=== PATIENT | female | born 1960 | race American Indian/Alaskan Native ===

== ENCOUNTER 2016-10-21 13:55 | Emergency (ER) | payer MEDICAID ==
[2016-10-21 14:39] VITALS: BP 145/97
[2016-10-21] MEDS ORDERED: TYLENOL PO ONE (19:21)
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
[2016-10-21] MEDS ORDERED: DELTASONE PO ONE (19:28)
[2016-10-21] MEDS ORDERED: FLEXERIL PO ONE (19:28)
== END 2016-10-21 20:10 | disposition home or self-care (01) ==
LOC: ED 13:55
DX: J01.90 Acute sinusitis, unspecified (principal); R05 Cough; M62.831 Muscle spasm of calf; M62.838 Other muscle spasm; I10 Essential (primary) hypertension; M19.90 Unspecified osteoarthritis, unspecified site; F17.200 Nicotine dependence, unspecified, uncomplicated; Z96.651 Presence of right artificial knee joint
CPT/HCPCS: 99282; J7512

== ENCOUNTER 2017-01-28 08:59 | Emergency (ER) | payer MEDICAID ==
[2017-01-28 09:19] VITALS: BP 156/89
[2017-01-28 09:35] LABS: Basophils % (Auto) 0.7 % (0.0-1.8); Eosinophils % (Auto) 3.5 % (0.0-4.3); Hematocrit 40.8 % (30.3-42.9); Hemoglobin 12.9 gm/dl (10.1-14.3); Mean Corpuscular HGB Conc 32 % (30-34); Mean Corpuscular Hemoglobin 27 pg (28-32); Mean Corpuscular Volume 86 fl (79-97); Platelet Count 256 K/mm3 (140-440); Red Blood Count 4.73 M/mm3 (3.65-5.03); Red Cell Distribution Width 16.2 % (13.2-15.2); White Blood Count 6.7 K/mm3 (4.5-11.0)
[2017-01-28 09:57] LABS: Anion Gap 19 mmol/L; BUN/Creatinine Ratio 7.77; Blood Urea Nitrogen 7 mg/dL (7-17); Calcium 8.9 mg/dL (8.4-10.2); Carbon Dioxide 22 mmol/L (22-30); Chloride 106.7 mmol/L (98-107); Glucose 156 mg/dL (65-100); Potassium 4.1 mmol/L (3.6-5.0); Sodium 144 mmol/L (137-145)
--- NOTE | 2017-01-28 10:47 | XRay Report ---
CHEST 2 VIEWS INDICATION: Shortness of breath. COMPARISON: 08/03/2016 FINDINGS: PA and lateral chest radiographs again demonstrate cardiomegaly. Slight increased bronchovascular markings centrally and toward the bases. Minimal bibasilar scarring as well. No large pleural effusions or overt CHF. Intact bones. CONCLUSION: Cardiomegaly again noted with subtle/early pulmonary vascular congestion not excluded, as described. Please correlate. Thank you for the opportunity to participate in this patient's care.
== END 2017-01-28 11:00 | disposition left against medical advice (07) ==
LOC: ED 08:59
DX: J45.909 Unspecified asthma, uncomplicated (principal); Z53.21 Procedure and treatment not carried out due to patient leaving prior to being seen by health care provider
CPT/HCPCS: 36415; 71020; 80048; 84484; 85025; 93005; 93010

== ENCOUNTER 2017-04-30 08:15 | Emergency (ER) | payer MEDICAID ==
[2017-04-30] MEDS ORDERED: NORCO 5/325 PO ONE (12:24)
[2017-04-30] MEDS ORDERED: BOOSTRIX IM ONE (12:24)
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
--- NOTE | 2017-04-30 14:11 | XRay Report ---
RIGHT HIP RADIOGRAPHS INDICATION: Pain, status post fall. Hip replacement at [place] in January 2017. COMPARISON: 05/08/2011. FINDINGS: AP pelvic radiograph with frog-leg view of the right hip demonstrate normal right hip arthroplasty appearance. Intact remainder pelvic articulation, including left hip and SI joints. Mild lower lumbar degenerative changes. Nonobstructive bowel gas pattern. Osteopenia not excluded. CONCLUSION: No acute radiographic abnormality with replaced right hip and few other incidental findings, as above. Thank you for the opportunity to participate in this patient's care.
[2017-04-30 14:25] VITALS: BP 103/64
== END 2017-04-30 14:45 | disposition home or self-care (01) ==
LOC: ED 08:15
DX: S61.012A Laceration without foreign body of left thumb without damage to nail, initial encounter (principal); M25.551 Pain in right hip; I10 Essential (primary) hypertension; M19.90 Unspecified osteoarthritis, unspecified site; Z79.82 Long term (current) use of aspirin; W18.30XA Fall on same level, unspecified, initial encounter; Y93.89 Activity, other specified; Y92.89 Other specified places as the place of occurrence of the external cause; Y99.8 Other external cause status
CPT/HCPCS: 90471; 90715; 99283

== ENCOUNTER 2017-06-23 12:59 | Emergency (ER) | payer MEDICAID ==
[2017-06-23 13:16] VITALS: BP 108/61
[2017-06-23] MEDS ORDERED: MOTRIN PO ONE (15:20)
--- NOTE | 2017-06-23 15:59 | XRay Report ---
Right hip 3 views. History: Pain after in the day. Findings: A right hip prosthesis is demonstrated in satisfactory position. There is no evidence of fracture or other acute findings. Bony mineralization is normal. The left hip appears normal. Impression: No acute findings.
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
== END 2017-06-23 17:42 | disposition home or self-care (01) ==
LOC: ED 12:59
DX: S39.012A Strain of muscle, fascia and tendon of lower back, initial encounter (principal); M48.36 Traumatic spondylopathy, lumbar region; V49.59XA Passenger injured in collision with other motor vehicles in traffic accident, initial encounter; Y93.89 Activity, other specified; Y92.89 Other specified places as the place of occurrence of the external cause; Y99.8 Other external cause status
CPT/HCPCS: 72100

== ENCOUNTER 2017-08-26 13:09 | Emergency (ER) | payer MEDICAID ==
[2017-08-26 13:39] VITALS: BP 168/95
[2017-08-26] MEDS ORDERED: ASPIRIN PO ONE (13:40)
[2017-08-26 14:19] LABS: Basophils % (Auto) 0.5 % (0.0-1.8); Eosinophils # (Auto) 0.2 K/mm3 (0.0-0.4); Eosinophils % (Auto) 2.7 % (0.0-4.3); Hematocrit 39.8 % (30.3-42.9); Hemoglobin 12.9 gm/dl (10.1-14.3); Lymphocytes # (Auto) 1.5 K/mm3 (1.2-5.4); Lymphocytes % (Auto) 24.6 % (13.4-35.0); Mean Corpuscular HGB Conc 32 % (30-34); Mean Corpuscular Hemoglobin 27 pg (28-32); Mean Corpuscular Volume 85 fl (79-97); Monocytes # (Auto) 0.5 K/mm3 (0.0-0.8); Monocytes % (Auto) 8.8 % (0.0-7.3); Platelet Count 249 K/mm3 (140-440); Red Cell Distribution Width 16.5 % (13.2-15.2)
[2017-08-26 14:29] LABS: BUN/Creatinine Ratio 21; Blood Urea Nitrogen 17 mg/dL (7-17); Calcium 9.1 mg/dL (8.4-10.2); Hemolysis Index 8
--- NOTE | 2017-08-26 15:03 | XRay Report ---
AP CHEST: HISTORY: Chest pain, shortness of breath Mild cardiomegaly is suspected. Normal pulmonary vascularity. The lungs are clear. Normal heart and mediastinal structures normal bony thorax. IMPRESSION: Mild cardiomegaly.
[2017-08-26] MEDS ORDERED: PROVENTIL IH ONE ×2 (19:42→19:44)
== END 2017-08-27 14:36 | disposition left against medical advice (07) ==
LOC: ED 13:09
DX: J02.9 Acute pharyngitis, unspecified (principal); Z53.21 Procedure and treatment not carried out due to patient leaving prior to being seen by health care provider
CPT/HCPCS: 36415; 71045; 80048; 84484; 85025; 93005; 93010; 94640

== ENCOUNTER 2017-10-29 06:33 | Emergency (ER) | payer MEDICAID ==
[2017-10-29] MEDS ORDERED: DUONEB *Not for PRN Use IH ONE ×2 (06:47→06:56)
[2017-10-29] MEDS ORDERED: PROVENTIL IH ONE ×2 (07:41→12:11)
--- NOTE | 2017-10-29 07:44 | Emergency Department Report ---
HPI - General Chief Complaint: Dyspnea/Respdistress Time Seen by Provider: 10/29/17 07:37 - HPI HPI: 57-year-old female presents to the emergency department by EMS from home with a complaint of shortness of breath starting this morning. Patient has a history of asthma, hypertension, osteoarthritis and borderline diabetes. She has a Symbicort inhaler at home that she was using without much relief but does not have any albuterol inhaler or nebulizer treatments. She has a primary care doctor but cannot currently remember their name. No recent travel or sick contacts at home. She denies any chest pain but does say it feels tight secondary to her breathing. She denies any back pain, fever, nausea , vomiting or diaphoresis. She is a tobacco smoker. ED Past Medical Hx - Past Medical History Previous Medical History?: Yes Hx Hypertension: Yes Hx Arthritis: Yes (OSTEOARTHRITIS) Hx Asthma: Yes Additional medical history: ALLERGIES - Surgical History Past Surgical History?: Yes Additional Surgical History: right hip replacement, right femur fx, Right knee surgery - Social History Smoking Status: Current Every Day Smoker - Medications Home Medications: Home Medications Medication Instructions Recorded Confirmed Last Taken Type Hydrochlorothiazide [Hctz] 25 mg PO QDAY 04/27/13 06/29/15 Unknown History Esomeprazole Magnesium [NexIUM] 20 mg PO QDAY 06/29/15 06/29/15 Unknown History Aspirin [Aspirin BABY CHEW TAB] 81 mg PO QDAY #30 tab.chew 08/04/16 Unknown Rx Losartan/Hydrochlorothiazide 1 each PO DAILY #30 tablet 08/04/16 Unknown Rx [Hyzaar 50-12.5 TAB] Fluticasone [Flonase] 1 spray NS QDAY #1 bottle 10/21/16 Unknown Rx Loratadine [Claritin] 10 mg PO DAILY #14 tablet 10/21/16 Unknown Rx Ibuprofen [Motrin] 600 mg PO Q8H PRN #15 tablet 04/30/17 Unknown Rx methOCARBAMOL [Robaxin TAB] 500 mg PO Q6H PRN #15 tablet 04/30/17 Unknown Rx traMADol [Ultram] 50 mg PO Q6HR PRN #12 tablet 04/30/17 Unknown Rx Cyclobenzaprine [Flexeril] 10 mg PO BID PRN #10 tablet 06/23/17 Unknown Rx Ibuprofen [Motrin] 600 mg PO Q8H PRN #30 tablet 06/23/17 Unknown Rx Albuterol Sulfate [Ventolin HFA] 2 puff IH Q4H PRN #1 hfa.aer.ad 10/29/17 Unknown Rx Budesonide/Formoterol Fumarate 2 puff IH BID #1 hfa.aer.ad 10/29/17 Unknown Rx [Symbicort 160-4.5 Mcg Inhaler] guaiFENesin/CODEINE [Robitussin AC] 5 ml PO Q6H PRN #100 ml 10/29/17 Unknown Rx predniSONE [Deltasone] 20 mg PO QDAY #2 tab 10/29/17 Unknown Rx ED Review of Systems ROS: Stated complaint: SHORTNESS OF BREATH Other details as noted in HPI Comment: All other systems reviewed and negative Constitutional: denies: chills, fever Eyes: denies: eye pain, eye discharge, vision change ENT: denies: ear pain, throat pain Respiratory: cough, shortness of breath, wheezing Cardiovascular: denies: palpitations, edema Gastrointestinal: denies: abdominal pain, nausea, diarrhea Genitourinary: denies: urgency, dysuria, discharge Musculoskeletal: denies: back pain, joint swelling, arthralgia Skin: denies: rash, lesions Neurological: denies: headache, weakness, paresthesias Physical Exam - Physical Exam Vital Signs: Vital Signs 10/29/17 06:44 Temperature 97.6 F Pulse Rate 89 Respiratory 20 Rate Blood Pressure 125/77 O2 Sat by Pulse 95 Oximetry Physical Exam: GENERAL: The patient is well-developed well-nourished. HENT: Normocephalic. Atraumatic. Patient has moist mucous membranes. EYES: Extraocular motions are intact. Pupils equal reactive to light bilaterally. NECK: Supple. Trachea is midline. CHEST/LUNGS: There is some mild wheezing throughout the chest. Tachypnea but no accessory muscle use. Dry cough heard during examination. There is no respiratory distress noted. HEART/CARDIOVASCULAR: Regular. There is no tachycardia. There is no murmur. ABDOMEN: Abdomen is soft, nontender. Patient has normal bowel sounds. There is no abdominal distention. SKIN: Skin is warm and dry. No appreciable edema. NEURO: The patient is awake, alert, and oriented. The patient is cooperative. The patient has no focal neurologic deficits. The patient has normal speech and gait. MUSCULOSKELETAL: There is no tenderness or deformity. There is no limitation range of motion. There is no evidence of acute injury. ED Course Vital Signs 10/29/17 06:44 Temperature 97.6 F Pulse Rate 89 Respiratory 20 Rate Blood Pressure 125/77 O2 Sat by Pulse 95 Oximetry ED Medical Decision Making - Lab Data Result diagrams: 10/29/17 08:02 10/29/17 08:02 - EKG Data -: EKG Interpreted by Me EKG shows normal: sinus rhythm, axis, intervals, QRS complexes (LVH, Q waves to the anterior leads), ST-T waves (T-wave inversions to the lateral and inferior leads) Rate: normal - EKG Data When compared to previous EKG there are: no significant change Interpretation: unchanged when compared t (08/26/17) - Radiology Data Radiology results: report reviewed, image reviewed interpreted by me: Chest x-ray does not show any acute process. There are no pleural effusions, obvious pneumonia and there is no pneumothorax. EXAM: CT ANGIO CHEST HISTORY: SOB, elevated dimer TECHNIQUE: CT angiography of the chest was performed. PRIORS: None. FINDINGS: There is moderate cardiomegaly. There is no significant mediastinal or hilar mass seen. No convincing pulmonary embolus seen. There is an artery in the right upper lobe which demonstrates less contrast density as compared to other arteries. This is probably artifact and may relate to streak artifact from dense contrast in the SVC. There is nonspecific interstitial thickening in the lower lungs. This could be chronic or represent some interstitial edema. There is some dependent atelectasis at the lung bases. There is no pneumothorax seen. There is mild emphysema. IMPRESSION: There is no pulmonary embolism or aortic dissection seen. Cardiomegaly. Interstitial prominence could be chronic disease versus interstitial edema. Mild emphysema Transcribed By: FREDY Dictated By: RODRI SEPULVEDA MD Electronically Authenticated By: RODRI SEPULVEDA MD Signed Date/Time: 10/29/17 1123 - Medical Decision Making Patient presented with some shortness of breath and bronchospasm that has been going on since this morning. No chest pain but she felt like there was some tightness with breathing. Labs have been mostly unremarkable including negative troponins 2, no leukocytosis and no electrolyte abnormalities. BNP was 14. EKG did not show any signs of ST elevation [place]. Chest x-ray does not show any acute process. Patient did have a slightly elevated equivocal d-dimer and therefore a CT angiography of the chest was done that did not show any signs of pulmonary embolism, dissection or any other acute process. She was given some breathing treatments and a dose of steroids and upon reevaluation she is feeling much better. Vital signs are stable including being afebrile and no hypoxia. She does not show any signs of respiratory distress. Patient will be discharged home with a refill of her Symbicort, and albuterol inhaler, an antitussive in 2 days of steroids. The patient understands that the steroids can increase her blood sugar and she should make sure she takes her oral hypoglycemics. She will follow-up with her primary care physician and will return to the ER with any worsening of her symptoms or any acute distress. - Differential Diagnosis CHF, Asthma, PE, Pnuemonia, Bronchitis Critical Care Time: No Critical care attestation.: If time is entered above; I have spent that time in minutes in the direct care of this critically ill patient, excluding procedure time. ED Disposition Clinical Impression: Bronchitis, Bronchospasm Disposition: DC-01 TO HOME OR SELFCARE Is pt being admited?: No Condition: Stable Instructions: Chronic Bronchitis (ED) Additional Instructions: Please follow-up with your primary care doctor in the next few days. I believe your symptoms are mostly due to bronchitis and asthma but I did give you a referral for a local product sales engineer to follow up since you originally had a complaint of some chest tightness. Return to the emergency Department with any worsening of your symptoms or any acute distress. You have been prescribed a medication that is sedating and therefore should not be taken prior to driving, working, and responsible for children and in no way should be mixed with alcohol of any quantity. Prescriptions: Albuterol Sulfate [Ventolin HFA] 2 puff IH Q4H PRN #1 hfa.aer.ad PRN Reason: Shortness Of Breath Budesonide/Formoterol Fumarate [Symbicort 160-4.5 Mcg Inhaler] 2 puff IH BID #1 hfa.aer.ad guaiFENesin/CODEINE [Robitussin AC] 5 ml PO Q6H PRN #100 ml PRN Reason: Cough predniSONE [Deltasone] 20 mg PO QDAY #2 tab Referrals: PRIMARY CARE, [Primary Care Provider] - 3-5 Days SANDY CAMPBELL MD [Staff Physician] - 3-5 Days Time of Disposition: 12:39
[2017-10-29 08:16] LABS: Basophils % (Auto) 0.5 % (0.0-1.8); Eosinophils # (Auto) 0.1 K/mm3 (0.0-0.4); Eosinophils % (Auto) 1.2 % (0.0-4.3); Hematocrit 37.2 % (30.3-42.9); Hemoglobin 12.1 gm/dl (10.1-14.3); Lymphocytes # (Auto) 1.4 K/mm3 (1.2-5.4); Lymphocytes % (Auto) 19.8 % (13.4-35.0); Mean Corpuscular HGB Conc 33 % (30-34); Mean Corpuscular Hemoglobin 27 pg (28-32); Mean Corpuscular Volume 84 fl (79-97); Monocytes # (Auto) 0.6 K/mm3 (0.0-0.8); Monocytes % (Auto) 8.3 % (0.0-7.3); Platelet Count 240 K/mm3 (140-440); Red Blood Count 4.43 M/mm3 (3.65-5.03); Red Cell Distribution Width 15.8 % (13.2-15.2)
[2017-10-29 08:29] LABS: BUN/Creatinine Ratio 14; Blood Urea Nitrogen 10 mg/dL (7-17); Calcium 8.8 mg/dL (8.4-10.2); Hemolysis Index 10
--- NOTE | 2017-10-29 09:02 | XRay Report ---
PA and lateral chest: SOB. There is enlargement of the heart. Interstitial fluid lines are identified in the lung bases bilaterally. There is minimal blunting of both costophrenic angles. The lungs otherwise appear generally clear. No hilar or mediastinal adenopathy appreciated. Compared to prior examination of August 26, 2017 the interstitial changes are new. Impression: Cardiomegaly and CHF.
[2017-10-29 09:50] VITALS: BP 134/78
--- NOTE | 2017-10-29 11:28 | Cat Scan Report ---
FINAL REPORT EXAM: CT ANGIO CHEST HISTORY: SOB, elevated dimer TECHNIQUE: CT angiography of the chest was performed. PRIORS: None. FINDINGS: There is moderate cardiomegaly. There is no significant mediastinal or hilar mass seen. No convincing pulmonary embolus seen. There is an artery in the right upper lobe which demonstrates less contrast density as compared to other arteries. This is probably artifact and may relate to streak artifact from dense contrast in the SVC. There is nonspecific interstitial thickening in the lower lungs. This could be chronic or represent some interstitial edema. There is some dependent atelectasis at the lung bases. There is no pneumothorax seen. There is mild emphysema. IMPRESSION: There is no pulmonary embolism or aortic dissection seen. Cardiomegaly. Interstitial prominence could be chronic disease versus interstitial edema. Mild emphysema
== END 2017-10-29 13:03 | disposition home or self-care (01) ==
LOC: ED 06:33
DX: J40 Bronchitis, not specified as acute or chronic (principal); I10 Essential (primary) hypertension; Z96.641 Presence of right artificial hip joint; F17.200 Nicotine dependence, unspecified, uncomplicated; Z79.82 Long term (current) use of aspirin
CPT/HCPCS: 36415; 71046; 71275; 80048; 83880; 84484; 85025; 85379; 93005; 93010; 94640; 96372; 96374; 99284; G0480; J2930; Q9967; 80320

== ENCOUNTER 2018-01-11 11:51 | Emergency (ER) | payer MEDICAID ==
[2018-01-11 12:36] VITALS: BP 127/64
--- NOTE | 2018-01-11 13:25 | XRay Report ---
CHEST XRAY, 2 VIEWS: History: SOB. Findings: There is mild cardiomegaly. Pulmonary vessels are within normal limits. The lungs are clear and fully expanded. No infiltrate, pleural effusion or pneumothorax. Normal thoracic cage. IMPRESSION: Cardiomegaly.
[2018-01-11 13:47] LABS: Basophils # (Auto) 0.1 K/mm3 (0.0-0.1); Eosinophils # (Auto) 0.1 K/mm3 (0.0-0.4); Eosinophils % (Auto) 1.9 % (0.0-4.3); Hematocrit 40.1 % (30.3-42.9); Hemoglobin 13.2 gm/dl (10.1-14.3); Lymphocytes # (Auto) 1.6 K/mm3 (1.2-5.4); Lymphocytes % (Auto) 23.4 % (13.4-35.0); Mean Corpuscular HGB Conc 33 % (30-34); Mean Corpuscular Hemoglobin 28 pg (28-32); Mean Corpuscular Volume 84 fl (79-97); Monocytes # (Auto) 0.5 K/mm3 (0.0-0.8); Monocytes % (Auto) 6.7 % (0.0-7.3); Platelet Count 216 K/mm3 (140-440); Red Blood Count 4.75 M/mm3 (3.65-5.03); Red Cell Distribution Width 16.9 % (13.2-15.2)
[2018-01-11 14:06] LABS: BUN/Creatinine Ratio 18; Blood Urea Nitrogen 14 mg/dL (7-17); Calcium 8.7 mg/dL (8.4-10.2); Hemolysis Index 4
== END 2018-01-11 20:30 | disposition left against medical advice (07) ==
LOC: ED 11:51
DX: R06.02 Shortness of breath (principal); Z53.21 Procedure and treatment not carried out due to patient leaving prior to being seen by health care provider
CPT/HCPCS: 36415; 71046; 80048; 85025

== ENCOUNTER 2018-01-18 03:24 | Emergency (ER) | payer MEDICAID ==
[2018-01-18] MEDS ORDERED: PROVENTIL IH ONE ×2 (03:42→09:28)
[2018-01-18] MEDS ORDERED: ATROVENT IH ONE (03:42)
--- NOTE | 2018-01-18 06:14 | XRay Report ---
FINAL REPORT EXAM: XR CHEST ROUTINE 2V HISTORY: Shortness of breath TECHNIQUE: PA and lateral views of the chest were submitted. Comparison is made to the study of 12/30/2017. FINDINGS: The heart is moderately enlarged. The lungs are not overtly congested. Pleural fluid is not seen. There are no localized infiltrates. The skeletal structures reveal disc degeneration in the dorsal spine. IMPRESSION: Cardiomegaly. No acute infiltrates or congestion.
[2018-01-18 06:28] LABS: Basophils % (Auto) 0.6 % (0.0-1.8); Eosinophils # (Auto) 0.1 K/mm3 (0.0-0.4); Lymphocytes # (Auto) 1.4 K/mm3 (1.2-5.4); Lymphocytes % (Auto) 21.6 % (13.4-35.0); Mean Corpuscular HGB Conc 33 % (30-34); Mean Corpuscular Hemoglobin 28 pg (28-32); Mean Corpuscular Volume 85 fl (79-97); Monocytes # (Auto) 0.5 K/mm3 (0.0-0.8); Monocytes % (Auto) 8.1 % (0.0-7.3); Platelet Count 198 K/mm3 (140-440); Red Blood Count 4.69 M/mm3 (3.65-5.03); Red Cell Distribution Width 17.1 % (13.2-15.2)
[2018-01-18 06:40] LABS: BUN/Creatinine Ratio 13; Blood Urea Nitrogen 13 mg/dL (7-17); Calcium 9.1 mg/dL (8.4-10.2); Hemolysis Index 2
[2018-01-18 08:48] VITALS: BP 138/92
--- NOTE | 2018-01-18 09:34 | Emergency Department Report ---
Blank Doc - Documentation Documentation: Recent PNA, still coughing. feels she was senty home too soon. Pt states that the Neb treatment made her feel better this morning. pt states she is still having green sputum. CXR wnl. to FT for a second neb treatment. lungs clear but she is having SOB with walking. Pt likely can be dc home with Zpac and 5 days of predispose
--- NOTE | 2018-01-18 10:31 | Emergency Department Report ---
ED General Adult HPI - General Chief complaint: Dyspnea/Respdistress Stated complaint: CAN'T BREATH BODY ACHE Time Seen by Provider: 01/18/18 09:29 Source: patient Mode of arrival: Ambulatory Limitations: No Limitations - History of Present Illness Initial comments: Recent PNA, still coughing. feels she was senty home too soon. Pt states that the Neb treatment made her feel better this morning. pt states she is still having green sputum. CXR wnl. to FT for a second neb treatment. lungs clear but she is having SOB with walking. Pt likely can be dc home with Zpac and 5 days of predispose Onset/Timin -: week(s) Location: head, chest Radiation: non-radiation Severity scale (0 -10): 9 Consistency: intermittent Improves with: none Worsens with: none Associated Symptoms: cough, other (congestion ). denies: fever/chills - Related Data Previous Rx's Medication Instructions Recorded Last Taken Type Albuterol Sulfate [Ventolin HFA] 2 puff IH Q4H PRN #1 hfa.aer.ad 12/19/17 Unknown Rx Budesonide/Formoterol Fumarate 2 puff IH BID #1 hfa.aer.ad 12/19/17 Unknown Rx [Symbicort 160-4.5 Mcg Inhaler] Fluticasone [Flonase] 2 spray NS QDAY #1 bottle 12/19/17 Unknown Rx Glycerin Adult 2 gm 1 supp MS QDAY PRN #30 supp.rect 12/19/17 Unknown Rx Hydrochlorothiazide [HCTZ] 25 mg PO QDAY #30 tablet 12/19/17 Unknown Rx Nitroglycerin [Nitro-Bid] 1 applic TD Q6H PRN #30 g 12/19/17 Unknown Rx Pantoprazole [Protonix TAB] 20 mg PO QDAY #30 tablet.dr 12/19/17 Unknown Rx Polyethylene Glycol 3350 [Miralax 17 gm PO QDAY #30 powd.pack 12/19/17 Unknown Rx 3350] ALBUTEROL Inhaler [ProAir HFA 2 puff IH QID PRN #1 inhalation 01/03/18 Unknown Rx Inhaler] Folic Acid [Folvite] 1 mg PO QDAY #30 tablet 01/03/18 Unknown Rx Nicotine [Habitrol] 14 mg TD QDAY #30 patch 01/03/18 Unknown Rx Prednisone [predniSONE 10 mg 10 mg PO .TAPER #1 tab.ds.pk 01/03/18 Unknown Rx (6-Day Pack, 21 Tabs)] Thiamine [Vitamin B-1] 100 mg PO QDAY #30 tablet 01/03/18 Unknown Rx Carvedilol [Coreg] 3.125 mg PO BID #30 tablet 01/06/18 Unknown Rx Lisinopril [Prinivil] 5 mg PO DAILY #30 tablet 01/06/18 Unknown Rx Azithromycin 250 mg PO DAILY #6 tablet 01/18/18 Unknown Rx Fluticasone [Flonase] 1 spray NS QDAY #1 bottle 01/18/18 Unknown Rx predniSONE [Deltasone] 40 mg PO QDAY #10 tab 01/18/18 Unknown Rx Allergies Allergy/AdvReac Type Severity Reaction Status Date / Time No Known Allergies Allergy Verified 01/28/17 09:15 ED Review of Systems ROS: Stated complaint: CAN'T BREATH BODY ACHE Other details as noted in HPI Constitutional: denies: chills, fever Eyes: denies: eye pain, eye discharge, vision change ENT: denies: ear pain, throat pain Respiratory: cough, shortness of breath, wheezing Cardiovascular: denies: chest pain, palpitations Endocrine: no symptoms reported Gastrointestinal: denies: abdominal pain, nausea, diarrhea Genitourinary: denies: urgency, dysuria, discharge Musculoskeletal: denies: back pain, joint swelling, arthralgia Skin: denies: rash, lesions Neurological: denies: headache, weakness, paresthesias Psychiatric: denies: anxiety, depression Hematological/Lymphatic: denies: easy bleeding, easy bruising ED Past Medical Hx - Past Medical History Previous Medical History?: Yes Hx Hypertension: Yes Hx Arthritis: Yes (OSTEOARTHRITIS) Hx Asthma: Yes Hx COPD: Yes Additional medical history: ALLERGIES - Surgical History Past Surgical History?: Yes Additional Surgical History: right hip replacement, right femur fx, Right knee surgery - Social History Smoking Status: Never Smoker - Medications Home Medications: Home Medications Medication Instructions Recorded Confirmed Last Taken Type Albuterol Sulfate [Ventolin HFA] 2 puff IH Q4H PRN #1 hfa.aer.ad 12/19/17 Unknown Rx Budesonide/Formoterol Fumarate 2 puff IH BID #1 hfa.aer.ad 12/19/17 Unknown Rx [Symbicort 160-4.5 Mcg Inhaler] Fluticasone [Flonase] 2 spray NS QDAY #1 bottle 12/19/17 Unknown Rx Glycerin Adult 2 gm 1 supp MS QDAY PRN #30 supp.rect 12/19/17 Unknown Rx Hydrochlorothiazide [HCTZ] 25 mg PO QDAY #30 tablet 12/19/17 Unknown Rx Nitroglycerin [Nitro-Bid] 1 applic TD Q6H PRN #30 g 12/19/17 Unknown Rx Pantoprazole [Protonix TAB] 20 mg PO QDAY #30 tablet.dr 12/19/17 Unknown Rx Polyethylene Glycol 3350 [Miralax 17 gm PO QDAY #30 powd.pack 12/19/17 Unknown Rx 3350] ALBUTEROL Inhaler [ProAir HFA 2 puff IH QID PRN #1 inhalation 01/03/18 Unknown Rx Inhaler] Folic Acid [Folvite] 1 mg PO QDAY #30 tablet 01/03/18 Unknown Rx Nicotine [Habitrol] 14 mg TD QDAY #30 patch 01/03/18 Unknown Rx Prednisone [predniSONE 10 mg 10 mg PO .TAPER #1 tab.ds.pk 01/03/18 Unknown Rx (6-Day Pack, 21 Tabs)] Thiamine [Vitamin B-1] 100 mg PO QDAY #30 tablet 01/03/18 Unknown Rx Carvedilol [Coreg] 3.125 mg PO BID #30 tablet 01/06/18 Unknown Rx Lisinopril [Prinivil] 5 mg PO DAILY #30 tablet 01/06/18 Unknown Rx Azithromycin 250 mg PO DAILY #6 tablet 01/18/18 Unknown Rx Fluticasone [Flonase] 1 spray NS QDAY #1 bottle 01/18/18 Unknown Rx predniSONE [Deltasone] 40 mg PO QDAY #10 tab 01/18/18 Unknown Rx ED Physical Exam - General Limitations: No Limitations General appearance: alert, in no apparent distress - Head Head exam: Present: atraumatic, normocephalic - Eye Eye exam: Present: normal appearance - ENT ENT exam: Present: mucous membranes moist, TM's normal bilaterally, normal external ear exam - Expanded ENT Exam Expanded Mouth exam: Absent: trismus Throat exam: Positive: tonsillar erythema. Negative: tonsillomegaly, tonsillar exudate, R peritonsillar mass, L peritonsillar mass - Neck Neck exam: Present: normal inspection, full ROM. Absent: tenderness, lymphadenopathy, thyromegaly - Respiratory Respiratory exam: Present: normal lung sounds bilaterally. Absent: respiratory distress, wheezes, stridor, chest wall tenderness - Cardiovascular Cardiovascular Exam: Present: regular rate, normal rhythm, normal heart sounds. Absent: systolic murmur, diastolic murmur, rubs, gallop - GI/Abdominal GI/Abdominal exam: Present: soft, normal bowel sounds. Absent: distended, tenderness, guarding, rebound, rigid, organomegaly, mass, bruit, pulsatile mass , hernia - Rectal Rectal exam: Present: deferred - Extremities Exam Extremities exam: Present: normal inspection - Back Exam Back exam: Present: normal inspection - Neurological Exam Neurological exam: Present: alert, oriented X3 - Psychiatric Psychiatric exam: Present: normal affect, normal mood - Skin Skin exam: Present: warm, dry, intact, normal color. Absent: rash ED Course Vital Signs 01/18/18 01/18/18 01/18/18 03:49 04:12 05:38 Temperature 97.8 F Pulse Rate 87 Pulse Rate [ 84 85 Posterior Bilateral Throughout] Pulse Rate [ Throughout] Respiratory 14 Rate Respiratory 18 18 Rate [Posterior Bilateral Throughout] Respiratory Rate [ Throughout] Blood Pressure 128/90 O2 Sat by Pulse 98 Oximetry 01/18/18 01/18/18 08:46 09:59 Temperature 97.7 F Pulse Rate 85 Pulse Rate [ 86 Posterior Bilateral Throughout] Pulse Rate [ 90 Throughout] Respiratory 20 Rate Respiratory 20 Rate [Posterior Bilateral Throughout] Respiratory 18 Rate [ Throughout] Blood Pressure 138/92 O2 Sat by Pulse 96 Oximetry ED Medical Decision Making - Lab Data Result diagrams: 01/18/18 06:10 01/18/18 06:10 - Medical Decision Making Patient was noticed to distress at this time no wheezing no cough patient and related ED from a room assignment to maintain ED and back to room without increased shortness of breath there's no wheezing no dyspnea at this time plan treat for bronchitis steroid burst Zithromax requested Flonase nasal spray as primary concern is nasal congestion will rx for same patient will be DC'd to home in stable condition at this time patient is currently a/o x 3 without shortness of breath no chest pain dizziness lightheadedness and nausea vomiting Critical care attestation.: If time is entered above; I have spent that time in minutes in the direct care of this critically ill patient, excluding procedure time. ED Disposition Clinical Impression: Bronchitis Disposition: DC-01 TO HOME OR SELFCARE Is pt being admited?: No Does the pt Need Aspirin: No Condition: Good Instructions: Chronic Bronchitis (ED), Acute Bronchitis (ED) Prescriptions: Azithromycin 250 mg PO DAILY #6 tablet Fluticasone [Flonase] 1 spray NS QDAY #1 bottle predniSONE [Deltasone] 40 mg PO QDAY #10 tab Referrals: MELVIN TINAJERO MD [Primary Care Provider] - 3-5 Days Forms: Work/School Release Form(ED) Time of Disposition: 10:34
== END 2018-01-18 10:50 | disposition home or self-care (01) ==
LOC: ED 03:24
DX: J40 Bronchitis, not specified as acute or chronic (principal); I10 Essential (primary) hypertension; M19.90 Unspecified osteoarthritis, unspecified site; J45.909 Unspecified asthma, uncomplicated; Z96.641 Presence of right artificial hip joint
CPT/HCPCS: 36415; 71046; 80048; 85025; 93005; 93010; 94640

== ENCOUNTER 2018-01-26 10:20 | Emergency (ER) | payer MEDICAID ==
[2018-01-26 10:31] VITALS: BP 131/85
--- NOTE | 2018-01-26 12:35 | Emergency Department Report ---
ED Shortness of Breath HPI - General Chief Complaint: Dyspnea/Respdistress Stated Complaint: SOB Time Seen by Provider: 01/26/18 12:22 Source: patient, EMS Mode of arrival: Stretcher Limitations: No Limitations - History of Present Illness Initial Comments: Patient is a 57-year-old [place] female who had a pneumonia last month with some lingering bronchitis who is complaining today of some increased shortness of breath. Patient ran out of her albuterol inhaler and nasal spray yesterday. Patient states she has some sinus congestion chance of breath with exertion. Patient has a fevers chills nausea vomiting this time. Patient denies chest pain. Patient states shortness of breath is worse when she is walking up stairs. Patient doesn't recall spelled productive of clear sputum. - Related Data Previous Rx's Medication Instructions Recorded Last Taken Type Albuterol Sulfate [Ventolin HFA] 2 puff IH Q4H PRN #1 hfa.aer.ad 12/19/17 Unknown Rx Budesonide/Formoterol Fumarate 2 puff IH BID #1 hfa.aer.ad 12/19/17 Unknown Rx [Symbicort 160-4.5 Mcg Inhaler] Fluticasone [Flonase] 2 spray NS QDAY #1 bottle 12/19/17 Unknown Rx Glycerin Adult 2 gm 1 supp MS QDAY PRN #30 supp.rect 12/19/17 Unknown Rx Hydrochlorothiazide [HCTZ] 25 mg PO QDAY #30 tablet 12/19/17 Unknown Rx Nitroglycerin [Nitro-Bid] 1 applic TD Q6H PRN #30 g 12/19/17 Unknown Rx Pantoprazole [Protonix TAB] 20 mg PO QDAY #30 tablet.dr 12/19/17 Unknown Rx Polyethylene Glycol 3350 [Miralax 17 gm PO QDAY #30 powd.pack 12/19/17 Unknown Rx 3350] ALBUTEROL Inhaler [ProAir HFA 2 puff IH QID PRN #1 inhalation 01/03/18 Unknown Rx Inhaler] Folic Acid [Folvite] 1 mg PO QDAY #30 tablet 01/03/18 Unknown Rx Nicotine [Habitrol] 14 mg TD QDAY #30 patch 01/03/18 Unknown Rx Prednisone [predniSONE 10 mg 10 mg PO .TAPER #1 tab.ds.pk 01/03/18 Unknown Rx (6-Day Pack, 21 Tabs)] Thiamine [Vitamin B-1] 100 mg PO QDAY #30 tablet 01/03/18 Unknown Rx Carvedilol [Coreg] 3.125 mg PO BID #30 tablet 01/06/18 Unknown Rx Lisinopril [Prinivil] 5 mg PO DAILY #30 tablet 01/06/18 Unknown Rx Azithromycin 250 mg PO DAILY #6 tablet 01/18/18 Unknown Rx Fluticasone [Flonase] 1 spray NS QDAY #1 bottle 01/18/18 Unknown Rx predniSONE [Deltasone] 40 mg PO QDAY #10 tab 01/18/18 Unknown Rx ALBUTEROL Inhaler [ProAir HFA 2 puff IH QID PRN #1 inhalation 01/26/18 Unknown Rx Inhaler] ALBUTEROL NEB's [Proventil 0.083% 2.5 mg IH TID PRN #75 ml 01/26/18 Unknown Rx NEBS] Amoxicillin/Potassium Clav 1 each PO BID #14 tablet 01/26/18 Unknown Rx [Augmentin 875-125 Tablet] Allergies Allergy/AdvReac Type Severity Reaction Status Date / Time No Known Allergies Allergy Verified 01/26/18 10:31 ED Review of Systems ROS: Stated complaint: SOB Other details as noted in HPI Comment: All other systems reviewed and negative ED Past Medical Hx - Past Medical History Hx Hypertension: Yes Hx Arthritis: Yes (OSTEOARTHRITIS) Hx Asthma: Yes Hx COPD: Yes (bronchitis) Additional medical history: ALLERGIES - Surgical History Additional Surgical History: right hip replacement, right femur fx, Right knee surgery - Social History Smoking Status: Current Some Day Smoker Substance Use Type: None - Medications Home Medications: Home Medications Medication Instructions Recorded Confirmed Last Taken Type Albuterol Sulfate [Ventolin HFA] 2 puff IH Q4H PRN #1 hfa.aer.ad 12/19/17 Unknown Rx Budesonide/Formoterol Fumarate 2 puff IH BID #1 hfa.aer.ad 12/19/17 Unknown Rx [Symbicort 160-4.5 Mcg Inhaler] Fluticasone [Flonase] 2 spray NS QDAY #1 bottle 12/19/17 Unknown Rx Glycerin Adult 2 gm 1 supp MS QDAY PRN #30 supp.rect 12/19/17 Unknown Rx Hydrochlorothiazide [HCTZ] 25 mg PO QDAY #30 tablet 12/19/17 Unknown Rx Nitroglycerin [Nitro-Bid] 1 applic TD Q6H PRN #30 g 12/19/17 Unknown Rx Pantoprazole [Protonix TAB] 20 mg PO QDAY #30 tablet.dr 12/19/17 Unknown Rx Polyethylene Glycol 3350 [Miralax 17 gm PO QDAY #30 powd.pack 12/19/17 Unknown Rx 3350] ALBUTEROL Inhaler [ProAir HFA 2 puff IH QID PRN #1 inhalation 01/03/18 Unknown Rx Inhaler] Folic Acid [Folvite] 1 mg PO QDAY #30 tablet 01/03/18 Unknown Rx Nicotine [Habitrol] 14 mg TD QDAY #30 patch 01/03/18 Unknown Rx Prednisone [predniSONE 10 mg 10 mg PO .TAPER #1 tab.ds.pk 01/03/18 Unknown Rx (6-Day Pack, 21 Tabs)] Thiamine [Vitamin B-1] 100 mg PO QDAY #30 tablet 01/03/18 Unknown Rx Carvedilol [Coreg] 3.125 mg PO BID #30 tablet 01/06/18 Unknown Rx Lisinopril [Prinivil] 5 mg PO DAILY #30 tablet 01/06/18 Unknown Rx Azithromycin 250 mg PO DAILY #6 tablet 01/18/18 Unknown Rx Fluticasone [Flonase] 1 spray NS QDAY #1 bottle 01/18/18 Unknown Rx predniSONE [Deltasone] 40 mg PO QDAY #10 tab 01/18/18 Unknown Rx ALBUTEROL Inhaler [ProAir HFA 2 puff IH QID PRN #1 inhalation 01/26/18 Unknown Rx Inhaler] ALBUTEROL NEB's [Proventil 0.083% 2.5 mg IH TID PRN #75 ml 01/26/18 Unknown Rx NEBS] Amoxicillin/Potassium Clav 1 each PO BID #14 tablet 01/26/18 Unknown Rx [Augmentin 875-125 Tablet] ED Physical Exam - General Limitations: No Limitations General appearance: alert, in no apparent distress - Head Head exam: Present: atraumatic, normocephalic - Eye Eye exam: Present: normal appearance - ENT ENT exam: Present: mucous membranes moist, other (generalized sinus tenderness) - Neck Neck exam: Present: normal inspection - Respiratory Respiratory exam: Present: normal lung sounds bilaterally, other (patient is able to talk in full sentences). Absent: respiratory distress, wheezes, rales, rhonchi, stridor - Cardiovascular Cardiovascular Exam: Present: regular rate, normal rhythm. Absent: systolic murmur, diastolic murmur, rubs, gallop - GI/Abdominal GI/Abdominal exam: Present: soft, normal bowel sounds - Extremities Exam Extremities exam: Present: normal inspection - Back Exam Back exam: Present: normal inspection - Neurological Exam Neurological exam: Present: alert, oriented X3 - Psychiatric Psychiatric exam: Present: normal affect, normal mood - Skin Skin exam: Present: warm, dry, intact, normal color. Absent: rash ED Course Vital Signs 01/26/18 10:24 Temperature 97.5 F L Pulse Rate 94 H Respiratory 20 Rate Blood Pressure 131/85 O2 Sat by Pulse 96 Oximetry ED Medical Decision Making - Medical Decision Making Patient's lungs are clear at this time. Patient is still on prednisone. Patient will be given a refill on her albuterol inhaler but also a prescription for the nebulizer machine with meds that she can take at home. Patient because of the sinus congestion and tenderness be started on Augmentin. Patient be discharged home. Patient will have follow-up with pulmonology. Critical care attestation.: If time is entered above; I have spent that time in minutes in the direct care of this critically ill patient, excluding procedure time. ED Disposition Clinical Impression: Bronchitis, Shortness of breath Sinusitis Qualifiers: Sinusitis location: pansinusitis Chronicity: subacute Qualified Code(s): J01.40 - Acute pansinusitis, unspecified Disposition: TO HOME OR SELFCARE Is pt being admited?: No Does the pt Need Aspirin: No Condition: Stable Instructions: Chronic Bronchitis (ED), Sinusitis (ED) Prescriptions: ALBUTEROL Inhaler [ProAir HFA Inhaler] 2 puff IH QID PRN #1 inhalation PRN Reason: Shortness Of Breath ALBUTEROL NEB's [Proventil 0.083% NEBS] 2.5 mg IH TID PRN #75 ml PRN Reason: Wheezing Amoxicillin/Potassium Clav [Augmentin 875-125 Tablet] 1 each PO BID #14 tablet Referrals: MINDA CHIANG MD [Staff Physician] - 3-5 Days
== END 2018-01-26 12:48 | disposition home or self-care (01) ==
LOC: ED 10:20
DX: J01.40 Acute pansinusitis, unspecified (principal); J40 Bronchitis, not specified as acute or chronic; R06.02 Shortness of breath; I10 Essential (primary) hypertension; J45.909 Unspecified asthma, uncomplicated; Z72.0 Tobacco use
CPT/HCPCS: 99283

== ENCOUNTER 2018-02-05 08:49 | Inpatient (IN) | payer MEDICAID ==
[2018-02-05] MEDS ORDERED: DUONEB *Not for PRN Use IH ONE (09:26)
[2018-02-05 10:05] LABS: Basophils # (Auto) 0.1 K/mm3 (0.0-0.1); Basophils % (Auto) 0.8 % (0.0-1.8); Eosinophils % (Auto) 0.3 % (0.0-4.3); Hematocrit 40.8 % (30.3-42.9); Hemoglobin 12.9 gm/dl (10.1-14.3); Lymphocytes # (Auto) 1.5 K/mm3 (1.2-5.4); Lymphocytes % (Auto) 20.1 % (13.4-35.0); Mean Corpuscular HGB Conc 32 % (30-34); Mean Corpuscular Hemoglobin 27 pg (28-32); Mean Corpuscular Volume 85 fl (79-97); Monocytes # (Auto) 0.7 K/mm3 (0.0-0.8); Monocytes % (Auto) 9.5 % (0.0-7.3); Platelet Count 269 K/mm3 (140-440); Red Cell Distribution Width 17.3 % (13.2-15.2)
[2018-02-05 10:15] LABS: BUN/Creatinine Ratio 11; Blood Urea Nitrogen 10 mg/dL (7-17); Calcium 9.2 mg/dL (8.4-10.2); Hemolysis Index 3
[2018-02-05] MEDS ORDERED: LASIX IV ONE (10:27)
--- NOTE | 2018-02-05 10:30 | Emergency Department Report ---
ED Shortness of Breath HPI - General Chief Complaint: Upper Respiratory Infection Stated Complaint: SOB,ABD PAIN Time Seen by Provider: 02/05/18 09:25 Source: patient Mode of arrival: Ambulatory Limitations: No Limitations - History of Present Illness Initial Comments: 57-year-old female past medical history smoker, asthma/COPD, arthritis, hypertension p/w c/o persistent worsening shortness of breath. Patient is awake alert and oriented 3. States she feels short of breath at rest. States that she has light minor dull chest discomfort which is intermittent. States that her primary complaint is shortness of breath. States she has noticed very mild lower extremity swelling over the last 2 weeks. Patient was recently admitted and treated for COPD exacerbation. Denies any fevers or chills currently. States she quit smoking about 3 weeks ago. Speaking in full sentences. Complains of persistent mildly productive cough with whitish sputum. MD Complaint: shortness of breath Onset/Timin -: week(s) Severity: moderate, severe Improves With: rest Known History Of: COPD, asthma, congestive heart failure Associated Symptoms: cough - Related Data Previous Rx's Medication Instructions Recorded Last Taken Type Albuterol Sulfate [Ventolin HFA] 2 puff IH Q4H PRN #1 hfa.aer.ad 12/19/17 Unknown Rx Budesonide/Formoterol Fumarate 2 puff IH BID #1 hfa.aer.ad 12/19/17 Unknown Rx [Symbicort 160-4.5 Mcg Inhaler] Fluticasone [Flonase] 2 spray NS QDAY #1 bottle 12/19/17 Unknown Rx Glycerin Adult 2 gm 1 supp NV QDAY PRN #30 supp.rect 12/19/17 Unknown Rx Hydrochlorothiazide [HCTZ] 25 mg PO QDAY #30 tablet 12/19/17 Unknown Rx Nitroglycerin [Nitro-Bid] 1 applic TD Q6H PRN #30 g 12/19/17 Unknown Rx Pantoprazole [Protonix TAB] 20 mg PO QDAY #30 tablet.dr 12/19/17 Unknown Rx Polyethylene Glycol 3350 [Miralax 17 gm PO QDAY #30 powd.pack 12/19/17 Unknown Rx 3350] ALBUTEROL Inhaler [ProAir HFA 2 puff IH QID PRN #1 inhalation 01/03/18 Unknown Rx Inhaler] Folic Acid [Folvite] 1 mg PO QDAY #30 tablet 01/03/18 Unknown Rx Nicotine [Habitrol] 14 mg TD QDAY #30 patch 01/03/18 Unknown Rx Prednisone [predniSONE 10 mg 10 mg PO .TAPER #1 tab.ds.pk 01/03/18 Unknown Rx (6-Day Pack, 21 Tabs)] Thiamine [Vitamin B-1] 100 mg PO QDAY #30 tablet 01/03/18 Unknown Rx Carvedilol [Coreg] 3.125 mg PO BID #30 tablet 01/06/18 Unknown Rx Lisinopril [Prinivil] 5 mg PO DAILY #30 tablet 01/06/18 Unknown Rx Azithromycin 250 mg PO DAILY #6 tablet 01/18/18 Unknown Rx Fluticasone [Flonase] 1 spray NS QDAY #1 bottle 01/18/18 Unknown Rx predniSONE [Deltasone] 40 mg PO QDAY #10 tab 01/18/18 Unknown Rx ALBUTEROL Inhaler [ProAir HFA 2 puff IH QID PRN #1 inhalation 01/26/18 Unknown Rx Inhaler] ALBUTEROL NEB's [Proventil 0.083% 2.5 mg IH TID PRN #75 ml 01/26/18 Unknown Rx NEBS] Amoxicillin/Potassium Clav 1 each PO BID #14 tablet 01/26/18 Unknown Rx [Augmentin 875-125 Tablet] Allergies Allergy/AdvReac Type Severity Reaction Status Date / Time No Known Allergies Allergy Verified 01/26/18 10:31 ED Review of Systems ROS: Stated complaint: SOB,ABD PAIN Other details as noted in HPI Constitutional: denies: chills, fever Eyes: denies: eye pain, eye discharge, vision change ENT: denies: ear pain, throat pain Respiratory: cough, shortness of breath, SOB with exertion, SOB at rest, wheezing Cardiovascular: dyspnea on exertion. denies: chest pain, palpitations Endocrine: no symptoms reported Gastrointestinal: denies: abdominal pain, nausea, diarrhea Genitourinary: denies: urgency, dysuria, discharge Musculoskeletal: denies: back pain, joint swelling, arthralgia Skin: denies: rash, lesions Neurological: denies: headache, weakness, paresthesias Psychiatric: denies: anxiety, depression Hematological/Lymphatic: denies: easy bleeding, easy bruising ED Past Medical Hx - Past Medical History Hx Hypertension: Yes Hx Arthritis: Yes (OSTEOARTHRITIS) Hx Asthma: Yes Hx COPD: Yes (bronchitis) Additional medical history: ALLERGIES - Surgical History Additional Surgical History: right hip replacement, right femur fx, Right knee surgery - Social History Smoking Status: Never Smoker - Medications Home Medications: Home Medications Medication Instructions Recorded Confirmed Last Taken Type Albuterol Sulfate [Ventolin HFA] 2 puff IH Q4H PRN #1 hfa.aer.ad 12/19/17 Unknown Rx Budesonide/Formoterol Fumarate 2 puff IH BID #1 hfa.aer.ad 12/19/17 Unknown Rx [Symbicort 160-4.5 Mcg Inhaler] Fluticasone [Flonase] 2 spray NS QDAY #1 bottle 12/19/17 Unknown Rx Glycerin Adult 2 gm 1 supp NV QDAY PRN #30 supp.rect 12/19/17 Unknown Rx Hydrochlorothiazide [HCTZ] 25 mg PO QDAY #30 tablet 12/19/17 Unknown Rx Nitroglycerin [Nitro-Bid] 1 applic TD Q6H PRN #30 g 12/19/17 Unknown Rx Pantoprazole [Protonix TAB] 20 mg PO QDAY #30 tablet.dr 12/19/17 Unknown Rx Polyethylene Glycol 3350 [Miralax 17 gm PO QDAY #30 powd.pack 12/19/17 Unknown Rx 3350] ALBUTEROL Inhaler [ProAir HFA 2 puff IH QID PRN #1 inhalation 01/03/18 Unknown Rx Inhaler] Folic Acid [Folvite] 1 mg PO QDAY #30 tablet 01/03/18 Unknown Rx Nicotine [Habitrol] 14 mg TD QDAY #30 patch 01/03/18 Unknown Rx Prednisone [predniSONE 10 mg 10 mg PO .TAPER #1 tab.ds.pk 01/03/18 Unknown Rx (6-Day Pack, 21 Tabs)] Thiamine [Vitamin B-1] 100 mg PO QDAY #30 tablet 01/03/18 Unknown Rx Carvedilol [Coreg] 3.125 mg PO BID #30 tablet 01/06/18 Unknown Rx Lisinopril [Prinivil] 5 mg PO DAILY #30 tablet 01/06/18 Unknown Rx Azithromycin 250 mg PO DAILY #6 tablet 01/18/18 Unknown Rx Fluticasone [Flonase] 1 spray NS QDAY #1 bottle 01/18/18 Unknown Rx predniSONE [Deltasone] 40 mg PO QDAY #10 tab 01/18/18 Unknown Rx ALBUTEROL Inhaler [ProAir HFA 2 puff IH QID PRN #1 inhalation 01/26/18 Unknown Rx Inhaler] ALBUTEROL NEB's [Proventil 0.083% 2.5 mg IH TID PRN #75 ml 01/26/18 Unknown Rx NEBS] Amoxicillin/Potassium Clav 1 each PO BID #14 tablet 01/26/18 Unknown Rx [Augmentin 875-125 Tablet] ED Physical Exam - General Limitations: No Limitations General appearance: alert, in no apparent distress - Head Head exam: Present: atraumatic, normocephalic - Eye Eye exam: Present: normal appearance - ENT ENT exam: Present: mucous membranes moist, other ( JVD on exam) - Neck Neck exam: Present: normal inspection - Respiratory Respiratory exam: Present: respiratory distress, decreased breath sounds ( slightly decreased breath sounds on auscultation) - Cardiovascular Cardiovascular Exam: Present: regular rate, normal rhythm. Absent: systolic murmur, diastolic murmur, rubs, gallop - GI/Abdominal GI/Abdominal exam: Present: soft, normal bowel sounds - Extremities Exam Extremities exam: Present: normal inspection - Back Exam Back exam: Present: normal inspection - Neurological Exam Neurological exam: Present: alert, oriented X3 - Psychiatric Psychiatric exam: Present: normal affect, normal mood - Skin Skin exam: Present: warm, dry, intact, normal color. Absent: rash ED Course Vital Signs 02/05/18 02/05/18 02/05/18 09:05 09:51 09:52 Temperature 97.7 F Pulse Rate 74 Pulse Rate [ 102 H 103 H Bilateral] Respiratory 16 Rate Respiratory 21 19 Rate [Bilateral ] Blood Pressure 138/91 O2 Sat by Pulse 96 Oximetry ED Medical Decision Making - Lab Data Result diagrams: 02/05/18 09:41 02/05/18 09:41 - Medical Decision Making A/P: CHF exacerbation, possible COPD exacerbation 1-discussed with ED attending and hospitalist Dr. Gifford 2-IV Lasix, O2 nasal cannula, aspirin 81 mg 3-elevations in pro BNP and mild elevation in troponin. No STEMI on EKG. Old T -wave inversions Critical care attestation.: If time is entered above; I have spent that time in minutes in the direct care of this critically ill patient, excluding procedure time. ED Disposition Clinical Impression: Congestive heart failure (CHF) Qualifiers: Heart failure type: unspecified Heart failure chronicity: acute on chronic Qualified Code(s): I50.9 - Heart failure, unspecified COPD (chronic obstructive pulmonary disease) Qualifiers: COPD type: chronic bronchitis Chronic bronchitis type: unspecified Qualified Code(s): J42 - Unspecified chronic bronchitis Disposition: OP ADMIT IP TO THIS HOSP Is pt being admited?: Yes Does the pt Need Aspirin: Yes Condition: Stable Instructions: Chronic Obstructive Pulmonary Disease (ED) Referrals: PRIMARY CARE, [Primary Care Provider] - 3-5 Days
--- NOTE | 2018-02-05 10:33 | Emergency Department Report ---
Blank Doc - Documentation Documentation: Patient states that she is coming in with worsening dyspnea over the past week. They weeks ago, she was diagnosed and admitted for pneumonia. A week ago , she was diagnosed with bronchitis and started on prednisone/amoxicillin. She has finished the prednisone, but is still taking amoxicillin. Patient endorses a mild productive cough, orthopnea, worsening bilateral leg swelling, and fatigue. Patient has history of COPD and remote history of heavy cigarette use. Presentation is concerning for COPD versus new onset CHF exacerbation. Patient was given a breathing treatment and had labs/imaging/EKG ordered.
[2018-02-05 10:36] LABS: HDL Cholesterol 47 mg/dL (40-59); LDL Cholesterol,Direct 90 mg/dL (50-130)
[2018-02-05] MEDS ORDERED: BABY ASPIRIN PO ONE (10:37)
--- NOTE | 2018-02-05 10:57 | XRay Report ---
CHEST TWO VIEWS: 02/05/18 08:49:00 CLINICAL: Shortness of breath. COMPARISON: 01/18/18 FINDINGS: Stable cardiomegaly with large central pulmonary vessels. Mild opacification of the right costophrenic angle on the frontal view. Stable lingular subsegmental atelectasis. No pulmonary consolidation no pleural effusion. No tubes or lines. The bones and soft tissues are normal. IMPRESSION: Cardiomegaly and pulmonary venous hypertension.No pulmonary edema and no pneumonia.
--- NOTE | 2018-02-05 12:21 | History and Physical Report ---
History of Present Illness Date of examination: 02/05/18 Date of admission: 02/05/18 10:38 Chief complaint: SOB History of present illness: 57-year-old female who presents to the emergency department with complaints of worsening dyspnea over the past week. The patient had a recent hospitalization approximately 3 weeks ago where she was diagnosed and admitted for pneumonia. A week ago, she was diagnosed with bronchitis and started on prednisone/ amoxicillin. She has finished the prednisone, but is still taking amoxicillin. Patient reports mild productive cough, orthopnea, worsening bilateral leg swelling, and fatigue. Patient has history of COPD and remote history of heavy cigarette use. Patient denies any nausea or vomiting. No headache or visual disturbances. Past History Past Medical History: COPD, heart failure, hypertension Past Surgical History: No surgical history Social history: smoking, alcohol abuse Family history: hypertension Medications and Allergies Allergies Allergy/AdvReac Type Severity Reaction Status Date / Time No Known Allergies Allergy Verified 01/26/18 10:31 Home Medications Medication Instructions Recorded Confirmed Last Taken Type Albuterol Sulfate [Ventolin HFA] 2 puff IH Q4H PRN #1 hfa.aer.ad 12/19/17 Unknown Rx Budesonide/Formoterol Fumarate 2 puff IH BID #1 hfa.aer.ad 12/19/17 02/05/18 Unknown Rx [Symbicort 160-4.5 Mcg Inhaler] Hydrochlorothiazide [HCTZ] 25 mg PO QDAY #30 tablet 12/19/17 02/05/18 Unknown Rx ALBUTEROL Inhaler [ProAir HFA 2 puff IH QID PRN #1 inhalation 01/03/18 02/05/18 Unknown Rx Inhaler] Thiamine [Vitamin B-1] 100 mg PO QDAY #30 tablet 01/03/18 02/05/18 Unknown Rx Carvedilol [Coreg] 3.125 mg PO BID #30 tablet 01/06/18 02/05/18 Unknown Rx Lisinopril [Prinivil] 5 mg PO DAILY #30 tablet 01/06/18 02/05/18 Unknown Rx Fluticasone [Flonase] 1 spray NS QDAY #1 bottle 01/18/18 02/05/18 Unknown Rx ALBUTEROL Inhaler [ProAir HFA 2 puff IH QID PRN #1 inhalation 01/26/18 02/05/18 Unknown Rx Inhaler] ALBUTEROL NEB's [Proventil 0.083% 2.5 mg IH TID PRN #75 ml 01/26/18 02/05/18 Unknown Rx NEBS] Review of Systems All systems: negative Exam - Constitutional Vitals: Temp Pulse Resp BP Pulse Ox 97.7 F 100 H 24 149/72 100 02/05/18 09:05 02/05/18 11:11 02/05/18 11:11 02/05/18 11:11 02/05/18 11:11 General appearance: Present: no acute distress, well-nourished - EENT Eyes: Present: PERRL ENT: hearing intact, clear oral mucosa - Neck Neck: Present: supple, normal ROM - Respiratory Respiratory effort: normal Respiratory: bilateral: diminished, rales, rhonchi, wheezing - Cardiovascular Heart Sounds: Present: S1 & S2. Absent: rub, click - Extremities Extremities: pulses symmetrical, No edema Peripheral Pulses: within normal limits - Abdominal General gastrointestinal: Present: soft, non-tender, non-distended, normal bowel sounds Female genitourinary: Present: normal - Integumentary Integumentary: Present: clear, warm, dry - Musculoskeletal Musculoskeletal: gait normal, strength equal bilaterally - Psychiatric Psychiatric: appropriate mood/affect, intact judgment & insight - Neurologic Neurologic: CNII-XII intact, moves all extremities Results - Labs CBC & Chem 7: 02/05/18 09:41 02/05/18 09:41 Labs: Laboratory Last Values WBC 7.3 K/mm3 (4.5-11.0) 02/05/18 09:41 RBC 4.80 M/mm3 (3.65-5.03) 02/05/18 09:41 Hgb 12.9 gm/dl (10.1-14.3) 02/05/18 09:41 Hct 40.8 % (30.3-42.9) 02/05/18 09:41 MCV 85 fl (79-97) 02/05/18 09:41 MCH 27 pg (28-32) L 02/05/18 09:41 MCHC 32 % (30-34) 02/05/18 09:41 RDW 17.3 % (13.2-15.2) H 02/05/18 09:41 Plt Count 269 K/mm3 (140-440) 02/05/18 09:41 Lymph % (Auto) 20.1 % (13.4-35.0) 02/05/18 09:41 Bee % (Auto) 9.5 % (0.0-7.3) H 02/05/18 09:41 Eos % (Auto) 0.3 % (0.0-4.3) 02/05/18 09:41 Baso % (Auto) 0.8 % (0.0-1.8) 02/05/18 09:41 Lymph # 1.5 K/mm3 (1.2-5.4) 02/05/18 09:41 [place] # 0.7 K/mm3 (0.0-0.8) 02/05/18 09:41 Eos # 0.0 K/mm3 (0.0-0.4) 02/05/18 09:41 Baso # 0.1 K/mm3 (0.0-0.1) 02/05/18 09:41 Seg Neutrophils % 69.3 % (40.0-70.0) 02/05/18 09:41 Seg Neutrophils # 5.1 K/mm3 (1.8-7.7) 02/05/18 09:41 Sodium 139 mmol/L (137-145) 02/05/18 09:41 Potassium 4.7 mmol/L (3.6-5.0) 02/05/18 09:41 Chloride 103.4 mmol/L (98-107) 02/05/18 09:41 Carbon Dioxide 21 mmol/L (22-30) L 02/05/18 09:41 Anion Gap 19 mmol/L 02/05/18 09:41 BUN 10 mg/dL (7-17) 02/05/18 09:41 Creatinine 0.9 mg/dL (0.7-1.2) 02/05/18 09:41 Estimated GFR > 60 ml/min 02/05/18 09:41 BUN/Creatinine Ratio 11 % 02/05/18 09:41 Glucose 141 mg/dL (65-100) H 02/05/18 09:41 Calcium 9.2 mg/dL (8.4-10.2) 02/05/18 09:41 Troponin T 0.047 ng/mL (0.00-0.029) H 02/05/18 09:41 NT-Pro-B Natriuret Pep 85398 pg/mL (0-900) H 02/05/18 09:41 Triglycerides 104 mg/dL (2-149) 02/05/18 09:41 Cholesterol 146 mg/dL (50-199) 02/05/18 09:41 LDL Cholesterol Direct 90 mg/dL (50-130) 02/05/18 09:41 HDL Cholesterol 47 mg/dL (40-59) 02/05/18 09:41 Cholesterol/HDL Ratio 3.10 % 02/05/18 09:41 Assessment and Plan Assessment and plan: Acute on chronic hypoxic respiratory failure; Oxygen titrated to process more than 90%, nebulizers, IV steroids, IV antibiotics, inhalation steroids, supportive care Acute exacerbation of COPD; continue oxygen nebulizers supportive care Acute on chronic systolic Congestive heart failure; continue current anti- failure medications EF 10-15% Hypertension; well controlled, continue current antihypertensives and when necessary medications Gastroesophageal reflux disease. Protonix daily DVT prophylaxis; heparin
[2018-02-05] MEDS ORDERED: SODIUM CHLORIDE FLUSH SYRINGE 10 ML IV PRN (12:23)
[2018-02-05] MEDS ORDERED: ZOFRAN IV PRN (12:23)
[2018-02-05] MEDS ORDERED: TYLENOL PO PRN (12:23)
[2018-02-05] MEDS ORDERED: PERCOCET 5/325 PO PRN (22:11)
[2018-02-05] MEDS: SODIUM CHLORIDE FLUSH SYRINGE 10 ML IV SCH (23:01)
[2018-02-06 05:25] LABS: Basophils % (Auto) 0.1 % (0.0-1.8); Hematocrit 40.5 % (30.3-42.9); Hemoglobin 13.2 gm/dl (10.1-14.3); Lymphocytes # (Auto) 0.7 K/mm3 (1.2-5.4); Lymphocytes % (Auto) 8.8 % (13.4-35.0); Mean Corpuscular HGB Conc 33 % (30-34); Mean Corpuscular Hemoglobin 27 pg (28-32); Mean Corpuscular Volume 84 fl (79-97); Monocytes # (Auto) 0.2 K/mm3 (0.0-0.8); Monocytes % (Auto) 2.6 % (0.0-7.3); Platelet Count 266 K/mm3 (140-440); Red Blood Count 4.82 M/mm3 (3.65-5.03); Red Cell Distribution Width 17.3 % (13.2-15.2)
[2018-02-06 05:38] LABS: BUN/Creatinine Ratio 21; Blood Urea Nitrogen 17 mg/dL (7-17); Calcium 8.7 mg/dL (8.4-10.2); Hemolysis Index 8
--- NOTE | 2018-02-06 08:40 | XRay Report ---
FINAL REPORT EXAM: XR CHEST 1V AP HISTORY: chf TECHNIQUE: AP portable view(s) of the chest obtained. PRIORS: 01/18/2018 FINDINGS: No mediastinal shift. Unchanged cardiomegaly. No pneumothorax, effusion, or focal airspace disease. Mild basilar predominant interstitial prominence. No acute skeletal finding. IMPRESSION: Findings of mild pulmonary interstitial edema without definite effusion appear similar to most recent prior exam.
[2018-02-06] MEDS: LASIX IV SCH (10:26)
[2018-02-06] MEDS: K-DUR PO SCH (10:27)
[2018-02-06] MEDS: SODIUM CHLORIDE FLUSH SYRINGE 10 ML IV SCH ×2 (10:28→22:47)
--- NOTE | 2018-02-06 11:38 | Progress Note ---
Assessment and Plan Assessment and plan: Acute on chronic hypoxic respiratory failure; Oxygen titrated to process more than 90%, nebulizers, IV steroids, IV antibiotics, inhalation steroids, supportive care Acute exacerbation of COPD; continue oxygen nebulizers supportive care Left flank pain. Check urinalysis and renal ultrasound. Acute on chronic systolic Congestive heart failure; continue current anti- failure medications EF 10-15% Hypertension; well controlled, continue current antihypertensives and when necessary medications Gastroesophageal reflux disease. Protonix daily DVT prophylaxis; heparin History Interval history: Patient complains of left flank pain. No dysuria or frequency. Hospitalist Physical - Constitutional Vitals: Temp Pulse Resp BP Pulse Ox 97.4 F L 91 H 22 127/83 99 02/06/18 07:29 02/06/18 07:29 02/06/18 07:29 02/06/18 07:02/06/18 10:00 General appearance: Present: no acute distress, well-nourished - EENT Eyes: Present: PERRL, EOM intact ENT: hearing intact, clear oral mucosa, dentition normal - Neck Neck: Present: supple, normal ROM - Respiratory Respiratory effort: normal Respiratory: bilateral: CTA - Cardiovascular Rhythm: regular Heart Sounds: Present: S1 & S2. Absent: gallop, rub - Extremities Extremities: no ischemia, No edema, Full ROM - Abdominal General gastrointestinal: soft, non-tender, non-distended, normal bowel sounds - Integumentary Integumentary: Present: clear, warm, dry - Neurologic Neurologic: CNII-XII intact, moves all extremities Results - Labs CBC & Chem 7: 02/06/18 04:05 02/06/18 04:05 Labs: Laboratory Last Values WBC 7.6 K/mm3 (4.5-11.0) 02/06/18 04:05 RBC 4.82 M/mm3 (3.65-5.03) 02/06/18 04:05 Hgb 13.2 gm/dl (10.1-14.3) 02/06/18 04:05 Hct 40.5 % (30.3-42.9) 02/06/18 04:05 MCV 84 fl (79-97) 02/06/18 04:05 MCH 27 pg (28-32) L 02/06/18 04:05 MCHC 33 % (30-34) 02/06/18 04:05 RDW 17.3 % (13.2-15.2) H 02/06/18 04:05 Plt Count 266 K/mm3 (140-440) 02/06/18 04:05 Lymph % (Auto) 8.8 % (13.4-35.0) L 02/06/18 04:05 [place] % (Auto) 2.6 % (0.0-7.3) 02/06/18 04:05 Eos % (Auto) 0.0 % (0.0-4.3) 02/06/18 04:05 Baso % (Auto) 0.1 % (0.0-1.8) 02/06/18 04:05 Lymph # 0.7 K/mm3 (1.2-5.4) L 02/06/18 04:05 [place] # 0.2 K/mm3 (0.0-0.8) 02/06/18 04:05 Eos # 0.0 K/mm3 (0.0-0.4) 02/06/18 04:05 Baso # 0.0 K/mm3 (0.0-0.1) 02/06/18 04:05 Seg Neutrophils % 88.5 % (40.0-70.0) H 02/06/18 04:05 Seg Neutrophils # 6.8 K/mm3 (1.8-7.7) 02/06/18 04:05 Sodium 140 mmol/L (137-145) 02/06/18 04:05 Potassium 5.3 mmol/L (3.6-5.0) H 02/06/18 04:05 Chloride 102.3 mmol/L (98-107) 02/06/18 04:05 Carbon Dioxide 25 mmol/L (22-30) 02/06/18 04:05 Anion Gap 18 mmol/L 02/06/18 04:05 BUN 17 mg/dL (7-17) 02/06/18 04:05 Creatinine 0.8 mg/dL (0.7-1.2) 02/06/18 04:05 Estimated GFR > 60 ml/min 02/06/18 04:05 BUN/Creatinine Ratio 21 % 02/06/18 04:05 Glucose 240 mg/dL (65-100) H 02/06/18 04:05 Calcium 8.7 mg/dL (8.4-10.2) 02/06/18 04:05 Troponin T 0.047 ng/mL (0.00-0.029) H 02/05/18 09:41 NT-Pro-B Natriuret Pep 86934 pg/mL (0-900) H 02/05/18 09:41 Triglycerides 104 mg/dL (2-149) 02/05/18 09:41 Cholesterol 146 mg/dL (50-199) 02/05/18 09:41 LDL Cholesterol Direct 90 mg/dL (50-130) 02/05/18 09:41 HDL Cholesterol 47 mg/dL (40-59) 02/05/18 09:41 Cholesterol/HDL Ratio 3.10 % 02/05/18 09:41
--- NOTE | 2018-02-06 11:48 | Consultation ---
History of Present Illness Consult date: 02/06/18 Consult reason: shortness of breath (sob for a week) History of present illness: pt c/o sob for a week no cp feeling a bit better, now less sob Past History Past Medical History: COPD, heart failure, hypertension Past Surgical History: No surgical history Social history: smoking, alcohol abuse Family history: hypertension Medications and Allergies Allergies Allergy/AdvReac Type Severity Reaction Status Date / Time No Known Allergies Allergy Verified 02/05/18 12:42 Home Medications Medication Instructions Recorded Confirmed Last Taken Type Albuterol Sulfate [Ventolin HFA] 2 puff IH Q4H PRN #1 hfa.aer.ad 12/19/17 Unknown Rx Budesonide/Formoterol Fumarate 2 puff IH BID #1 hfa.aer.ad 12/19/17 02/05/18 Unknown Rx [Symbicort 160-4.5 Mcg Inhaler] Hydrochlorothiazide [HCTZ] 25 mg PO QDAY #30 tablet 12/19/17 02/05/18 Unknown Rx ALBUTEROL Inhaler [ProAir HFA 2 puff IH QID PRN #1 inhalation 01/03/18 02/05/18 Unknown Rx Inhaler] Thiamine [Vitamin B-1] 100 mg PO QDAY #30 tablet 01/03/18 02/05/18 Unknown Rx Carvedilol [Coreg] 3.125 mg PO BID #30 tablet 01/06/18 02/05/18 Unknown Rx Lisinopril [Prinivil] 5 mg PO DAILY #30 tablet 01/06/18 02/05/18 Unknown Rx Fluticasone [Flonase] 1 spray NS QDAY #1 bottle 01/18/18 02/05/18 Unknown Rx ALBUTEROL Inhaler [ProAir HFA 2 puff IH QID PRN #1 inhalation 01/26/18 02/05/18 Unknown Rx Inhaler] ALBUTEROL NEB's [Proventil 0.083% 2.5 mg IH TID PRN #75 ml 01/26/18 02/05/18 Unknown Rx NEBS] Active Meds: Active Medications Acetaminophen (Tylenol) 650 mg PO Q4H PRN PRN Reason: Pain MILD(1-3)/Fever >100.5/MOSCOSO Last Admin: 02/05/18 20:51 Dose: 650 mg Enoxaparin Sodium (Lovenox) 40 mg SUB-Q QDAY [facility] Furosemide (Lasix) 40 mg IV QDAY [facility] Lisinopril (Zestril) 2.5 mg PO QDAY [facility] Methylprednisolone Sodium Succinate (Solu-Medrol) 40 mg IV Q8HR [facility] Last Admin: 02/06/18 06:27 Dose: 40 mg Ondansetron HCl (Zofran) 4 mg IV Q8H PRN PRN Reason: Nausea And Vomiting Oxycodone/Acetaminophen (Percocet 5/325) 1 tab PO Q6H PRN PRN Reason: Pain, Moderate (4-6) Last Admin: 02/05/18 22:57 Dose: 1 tab Potassium Chloride (K-Dur) 10 meq PO QDAY [facility] Sodium Chloride (Sodium Chloride Flush Syringe 10 Ml) 10 ml IV BID [facility] Last Admin: 02/05/18 23:01 Dose: 10 ml Sodium Chloride (Sodium Chloride Flush Syringe 10 Ml) 10 ml IV PRN PRN PRN Reason: LINE FLUSH Physical Examination Vital Signs Temp Pulse Resp BP Pulse Ox 97.7 F 74 16 138/91 96 02/05/18 09:05 02/05/18 09:05 02/05/18 09:05 02/05/18 09:05 02/05/18 09:05 Results 02/06/18 04:05 02/06/18 04:05 CBC 02/06/18 Range/Units 04:05 WBC 7.6 (4.5-11.0) K/mm3 RBC 4.82 (3.65-5.03) M/mm3 Hgb 13.2 (10.1-14.3) gm/dl Hct 40.5 (30.3-42.9) % Plt Count 266 (140-440) K/mm3 Lymph # 0.7 L (1.2-5.4) K/mm3 [place] # 0.2 (0.0-0.8) K/mm3 Eos # 0.0 (0.0-0.4) K/mm3 Baso # 0.0 (0.0-0.1) K/mm3 Comprehensive Metabolic Panel 02/06/18 Range/Units 04:05 Sodium 140 (137-145) mmol/L Potassium 5.3 H (3.6-5.0) mmol/L Chloride 102.3 (98-107) mmol/L Carbon Dioxide 25 (22-30) mmol/L BUN 17 (7-17) mg/dL Creatinine 0.8 (0.7-1.2) mg/dL Glucose 240 H (65-100) mg/dL Calcium 8.7 (8.4-10.2) mg/dL Assessment and Plan 57yo AAF: 1. HFrEF * tte 12/24 revealed ef 10-15% * ? etiology, ? etoh-induced 2. COPD 3. h/o polysubstance abuse * per pt, started drinking heavily at age 12, recently quit 4. htn 5. ? compliance cont iv lasix, jinny will add low dose bb once euvolemic, will consider lhc/coronary angiography (likely Wednesday) dvt prophylaxis My finding and plan of care were d/w pt at length. All questions were addressed. Thanks Will follow. - Patient Problems (1) COPD (chronic obstructive pulmonary disease) Current Visit: Yes Status: Acute Qualifiers: COPD type: chronic bronchitis Chronic bronchitis type: unspecified Qualified Code(s): J42 - Unspecified chronic bronchitis (2) Congestive heart failure (CHF) Current Visit: Yes Status: Acute Qualifiers: Heart failure type: unspecified Heart failure chronicity: acute on chronic Qualified Code(s): I50.9 - Heart failure, unspecified (3) Acute pancreatitis Current Visit: No Status: Acute Qualifiers: Pancreatitis type: unspecified pancreatitis type (4) Cardiomyopathy Current Visit: No Status: Acute Qualifiers: Cardiomyopathy type: other Qualified Code(s): I42.8 - Other cardiomyopathies (5) Chronic lung disease Current Visit: No Status: Acute (6) Sleep apnea Current Visit: No Status: Acute Qualifiers: Sleep apnea type: unspecified type Qualified Code(s): G47.30 - Sleep apnea , unspecified (7) Substance abuse Current Visit: No Status: Acute (8) Asthma Current Visit: No Status: Chronic Qualifiers: Asthma severity: mild
--- NOTE | 2018-02-06 15:45 | Ultrasound Report ---
FINAL REPORT PROCEDURE: US RENAL BILAT TECHNIQUE: Real-time sonography in multiple planes of the kidneys, ureters and urinary bladder was performed with image documentation. CPT 09648 HISTORY: flank pain COMPARISON: No prior studies are available for comparison. FINDINGS: RIGHT kidney: Normal echotexture. No focal renal mass, calculus, or hydronephrosis. Length: 11.1 cm. LEFT kidney: Normal echotexture. No focal renal mass, calculus, or hydronephrosis. Length: 10.9cm. Bladder: Normal. IMPRESSION: Negative examination.
[2018-02-06] MEDS: LOVENOX SUB-Q SCH (18:28)
[2018-02-06] MEDS: ZESTRIL PO SCH (18:29)
[2018-02-06] MEDS: COREG PO SCH (22:47)
[2018-02-07] MEDS: PROVENTIL IH PRN (05:55)
[2018-02-07 06:01] LABS: Hematocrit 41.9 % (30.3-42.9); Hemoglobin 13.2 gm/dl (10.1-14.3); Mean Corpuscular HGB Conc 32 % (30-34); Mean Corpuscular Hemoglobin 27 pg (28-32); Mean Corpuscular Volume 84 fl (79-97); Platelet Count 307 K/mm3 (140-440); Red Blood Count 4.97 M/mm3 (3.65-5.03); Red Cell Distribution Width 16.7 % (13.2-15.2)
[2018-02-07 06:22] LABS: BUN/Creatinine Ratio 31; Blood Urea Nitrogen 25 mg/dL (7-17); Calcium 9.2 mg/dL (8.4-10.2); Hemolysis Index 2
[2018-02-07 06:55] LABS: Basophils % (Manual) 0 % (0.0-1.8); Eosinophils % (Manual) 0 % (0.0-4.3); Monocytes % (Manual) 0 % (0.0-7.3); Platelet Estimate Consistent w Auto; Total Cells Counted 100
[2018-02-07] MEDS: BROVANA NEBU IH SCH ×2 (08:10→19:19)
[2018-02-07] MEDS: PULMICORT IH SCH ×2 (08:10→19:19)
[2018-02-07 08:16] LABS: Bilirubin,Urine NEG (Negative); Blood,Urine NEG (Negative); Color,Urine Yellow (Yellow); Urobilinogen,Urine < 2.0 mg/dL (<2.0)
--- NOTE | 2018-02-07 09:24 | Progress Note ---
Assessment and Plan Assessment and plan: Acute on chronic hypoxic respiratory failure; Cont. O2, nebulizers, IV steroids, IV antibiotics, inhalation steroids and supportive care Cardiology considering lhc/coronary angiography (likely Wednesday) Acute exacerbation of COPD; continue oxygen, nebulizers, steroids and supportive care Left flank pain. U/A and Renal ultrasound are negative. Acute on chronic systolic Congestive heart failure; continue current anti- failure medications EF 10-15%. Coreg, lasix and lisinopril hyperkalemia. Cont Lasix. Recheck BMP in am Hypertension; well controlled, continue current antihypertensives and when necessary medications Gastroesophageal reflux disease. Protonix daily DVT prophylaxis; heparin History Interval history: No new issues overnight Hospitalist Physical - Constitutional Vitals: Temp Pulse Resp BP Pulse Ox 97.5 F L 89 20 130/102 98 02/07/18 07:13 02/07/18 08:20 02/07/18 08:20 02/07/18 07:13 02/07/18 08:10 General appearance: Present: no acute distress, well-nourished - EENT Eyes: Present: PERRL, EOM intact ENT: hearing intact, clear oral mucosa, dentition normal - Neck Neck: Present: supple, normal ROM - Respiratory Respiratory effort: normal Respiratory: bilateral: CTA - Cardiovascular Rhythm: regular Heart Sounds: Present: S1 & S2. Absent: gallop, rub - Extremities Extremities: no ischemia, No edema, Full ROM - Abdominal General gastrointestinal: soft, non-tender, non-distended, normal bowel sounds - Integumentary Integumentary: Present: clear, warm, dry - Neurologic Neurologic: CNII-XII intact, moves all extremities Results - Labs CBC & Chem 7: 02/07/18 05:11 02/07/18 05:11 Labs: Laboratory Last Values WBC 13.4 K/mm3 (4.5-11.0) H 02/07/18 05:11 RBC 4.97 M/mm3 (3.65-5.03) 02/07/18 05:11 Hgb 13.2 gm/dl (10.1-14.3) 02/07/18 05:11 Hct 41.9 % (30.3-42.9) 02/07/18 05:11 MCV 84 fl (79-97) 02/07/18 05:11 MCH 27 pg (28-32) L 02/07/18 05:11 MCHC 32 % (30-34) 02/07/18 05:11 RDW 16.7 % (13.2-15.2) H 02/07/18 05:11 Plt Count 307 K/mm3 (140-440) 02/07/18 05:11 Lymph % (Auto) 8.8 % (13.4-35.0) L 02/06/18 04:05 [place] % (Auto) 2.6 % (0.0-7.3) 02/06/18 04:05 Eos % (Auto) 0.0 % (0.0-4.3) 02/06/18 04:05 Baso % (Auto) 0.1 % (0.0-1.8) 02/06/18 04:05 Lymph # 0.7 K/mm3 (1.2-5.4) L 02/06/18 04:05 [place] # 0.2 K/mm3 (0.0-0.8) 02/06/18 04:05 Eos # 0.0 K/mm3 (0.0-0.4) 02/06/18 04:05 Baso # 0.0 K/mm3 (0.0-0.1) 02/06/18 04:05 Add Manual Diff Complete 02/07/18 05:11 Total Counted 100 02/07/18 05:11 Seg Neutrophils % Internal Grinding Machine Operator 02/07/18 05:11 Seg Neuts % (Manual) 90.0 % (40.0-70.0) H 02/07/18 05:11 Band Neutrophils % 0 % 02/07/18 05:11 Lymphocytes % (Manual) 10.0 % (13.4-35.0) L 02/07/18 05:11 Reactive Lymphs % (Man) 0 % 02/07/18 05:11 Monocytes % (Manual) 0 % (0.0-7.3) 02/07/18 05:11 Eosinophils % (Manual) 0 % (0.0-4.3) 02/07/18 05:11 Basophils % (Manual) 0 % (0.0-1.8) 02/07/18 05:11 Metamyelocytes % 0 % 02/07/18 05:11 Myelocytes % 0 % 02/07/18 05:11 Promyelocytes % 0 % 02/07/18 05:11 Blast Cells % 0 % 02/07/18 05:11 Nucleated RBC % Not Reportable 02/07/18 05:11 Seg Neutrophils # 6.8 K/mm3 (1.8-7.7) 02/06/18 04:05 Seg Neutrophils # Man 12.1 K/mm3 (1.8-7.7) H 02/07/18 05:11 Band Neutrophils # 0.0 K/mm3 02/07/18 05:11 Lymphocytes # (Manual) 1.3 K/mm3 (1.2-5.4) 02/07/18 05:11 Abs React Lymphs (Man) 0.0 K/mm3 02/07/18 05:11 Monocytes # (Manual) 0.0 K/mm3 (0.0-0.8) 02/07/18 05:11 Eosinophils # (Manual) 0.0 K/mm3 (0.0-0.4) 02/07/18 05:11 Basophils # (Manual) 0.0 K/mm3 (0.0-0.1) 02/07/18 05:11 Metamyelocytes # 0.0 K/mm3 02/07/18 05:11 Myelocytes # 0.0 K/mm3 02/07/18 05:11 Promyelocytes # 0.0 K/mm3 02/07/18 05:11 Blast Cells # 0.0 K/mm3 02/07/18 05:11 WBC Morphology Not Reportable 02/07/18 05:11 Hypersegmented Neuts Not Reportable 02/07/18 05:11 Hyposegmented Neuts Not Reportable 02/07/18 05:11 Hypogranular Neuts Not Reportable 02/07/18 05:11 Smudge Cells Not Reportable 02/07/18 05:11 Toxic Granulation Not Reportable 02/07/18 05:11 Toxic Vacuolation Not Reportable 02/07/18 05:11 Dohle Bodies Not Reportable 02/07/18 05:11 Pelger-Huet Anomaly Not Reportable 02/07/18 05:11 Kathia Rods Not Reportable 02/07/18 05:11 Platelet Estimate Consistent w auto 02/07/18 05:11 Clumped Platelets Not Reportable 02/07/18 05:11 Plt Clumps, EDTA Not Reportable 02/07/18 05:11 Large Platelets Not Reportable 02/07/18 05:11 Giant Platelets Not Reportable 02/07/18 05:11 Platelet Satelliting Not Reportable 02/07/18 05:11 Plt Morphology Comment Not Reportable 02/07/18 05:11 RBC Morphology Not Reportable 02/07/18 05:11 Dimorphic RBCs Not Reportable 02/07/18 05:11 Polychromasia Not Reportable 02/07/18 05:11 Hypochromasia Not Reportable 02/07/18 05:11 Poikilocytosis Not Reportable 02/07/18 05:11 Anisocytosis Not Reportable 02/07/18 05:11 Microcytosis Not Reportable 02/07/18 05:11 Macrocytosis Not Reportable 02/07/18 05:11 Spherocytes Not Reportable 02/07/18 05:11 Pappenheimer Bodies Not Reportable 02/07/18 05:11 Sickle Cells Not Reportable 02/07/18 05:11 Target Cells Not Reportable 02/07/18 05:11 Tear Drop Cells Not Reportable 02/07/18 05:11 Ovalocytes Not Reportable 02/07/18 05:11 Helmet Cells Not Reportable 02/07/18 05:11 [place]li-Toppers Bodies Not Reportable 02/07/18 05:11 [place] Rings Not Reportable 02/07/18 05:11 [place] Cells Not Reportable 02/07/18 05:11 Bite Cells Not Reportable 02/07/18 05:11 Crenated Cell Not Reportable 02/07/18 05:11 Elliptocytes Not Reportable 02/07/18 05:11 Acanthocytes (Spur) Not Reportable 02/07/18 05:11 Rouleaux Not Reportable 02/07/18 05:11 Hemoglobin C Crystals Not Reportable 02/07/18 05:11 Schistocytes Not Reportable 02/07/18 05:11 Malaria parasites Not Reportable 02/07/18 05:11 Johnnie Bodies Not Reportable 02/07/18 05:11 Hem Pathologist Commnt No 02/07/18 05:11 Sodium 140 mmol/L (137-145) 02/07/18 05:11 Potassium 5.5 mmol/L (3.6-5.0) H 02/07/18 05:11 Chloride 102.2 mmol/L (98-107) 02/07/18 05:11 Carbon Dioxide 26 mmol/L (22-30) 02/07/18 05:11 Anion Gap 17 mmol/L 02/07/18 05:11 BUN 25 mg/dL (7-17) H 02/07/18 05:11 Creatinine 0.8 mg/dL (0.7-1.2) 02/07/18 05:11 Estimated GFR > 60 ml/min 02/07/18 05:11 BUN/Creatinine Ratio 31 % 02/07/18 05:11 Glucose 179 mg/dL (65-100) H 02/07/18 05:11 Calcium 9.2 mg/dL (8.4-10.2) 02/07/18 05:11 Troponin T 0.047 ng/mL (0.00-0.029) H 02/05/18 09:41 NT-Pro-B Natriuret Pep 38455 pg/mL (0-900) H 02/05/18 09:41 Triglycerides 104 mg/dL (2-149) 02/05/18 09:41 Cholesterol 146 mg/dL (50-199) 02/05/18 09:41 LDL Cholesterol Direct 90 mg/dL (50-130) 02/05/18 09:41 HDL Cholesterol 47 mg/dL (40-59) 02/05/18 09:41 Cholesterol/HDL Ratio 3.10 % 02/05/18 09:41 Urine Color Yellow (Yellow) 02/07/18 06:15 Urine Turbidity Clear (Clear) 02/07/18 06:15 Urine pH 6.0 (5.0-7.0) 02/07/18 06:15 Ur Specific [place] 1.020 (1.003-1.030) 02/07/18 06:15 Urine Protein 100 mg/dl mg/dL (Negative) 02/07/18 06:15 Urine Glucose (UA) Neg mg/dL (Negative) 02/07/18 06:15 Urine Ketones Neg mg/dL (Negative) 02/07/18 06:15 Urine Blood Neg (Negative) 02/07/18 06:15 Urine Nitrite Neg (Negative) 02/07/18 06:15 Urine Bilirubin Neg (Negative) 02/07/18 06:15 Urine Urobilinogen < 2.0 mg/dL (<2.0) 02/07/18 06:15 Ur Leukocyte Esterase Neg (Negative) 02/07/18 06:15 Urine WBC (Auto) 1.0 /HPF (0.0-6.0) 02/07/18 06:15 Urine RBC (Auto) 1.0 /HPF (0.0-6.0) 02/07/18 06:15 U Epithel Cells (Auto) < 1.0 /HPF (0-13.0) 02/07/18 06:15
[2018-02-07] MEDS ORDERED: ATROVENT IH PRN (09:25)
[2018-02-07] MEDS ORDERED: XOPENEX IH PRN (09:25)
[2018-02-07] MEDS: LOVENOX SUB-Q SCH (10:25)
[2018-02-07] MEDS: COREG PO SCH ×2 (10:26→22:46)
[2018-02-07] MEDS: LASIX IV SCH (10:27)
[2018-02-07] MEDS: K-DUR PO SCH (10:27)
[2018-02-07] MEDS: ZESTRIL PO SCH (10:28)
[2018-02-07] MEDS: SODIUM CHLORIDE FLUSH SYRINGE 10 ML IV SCH ×2 (10:28→22:46)
[2018-02-07] MEDS: SPIRIVA IH SCH (11:35)
[2018-02-07] MEDS: DUONEB *Not for PRN Use IH SCH ×3 (11:35→19:19)
--- NOTE | 2018-02-07 12:59 | Progress Note ---
Assessment and Plan Pt reports history of cough secondary to ACEI. Will discontinue lisinopril and hold ARB at this time in setting of hyperkalemia. Continue coreg. Continue diuresis with IV lasix. Plan for coronary angiography in AM for further evaluation of CMP. Indications, potential risks and benefits of LHC reviewed with pt and she is agreeable to proceed. NPO after MN. Consider pulmonary consultation per primary. The patient has been seen in conjunction with Dr. Gomez who agrees with the assessment and plan of care. - Patient Problems (1) Acute combined systolic and diastolic heart failure Current Visit: Yes Status: Acute (2) Dilated cardiomyopathy Current Visit: Yes Status: Chronic (3) Mild pulmonary hypertension Current Visit: Yes Status: Chronic (4) HTN (hypertension) Current Visit: Yes Status: Chronic (5) History of recent pneumonia Current Visit: Yes Status: Acute (6) Hyperkalemia Current Visit: Yes Status: Acute (7) Tobacco use Current Visit: Yes Status: Acute (8) ETOH abuse Current Visit: Yes Status: Acute Subjective Date of service: 02/07/18 Principal diagnosis: HF Interval history: pt resting in bed, c/o SOB. Objective Last Vital Signs Temp 97.5 F L 02/07/18 07:13 Pulse 91 H 02/07/18 11:35 Resp 20 02/07/18 11:35 BP 130/102 02/07/18 10:28 Pulse Ox 97 02/07/18 10:00 - Physical Examination General: No Apparent Distress HEENT: Positive: PERRL, Normocephaly, Mucus Membranes Moist Neck: Positive: neck supple, trachea midline Cardiac: Positive: Reg Rate and Rhythm, S1/S2 Lungs: Positive: clear to auscultation Neuro: Positive: Grossly Intact Abdomen: Positive: Soft. Negative: Tender Skin: Positive: Clear. Negative: Rash, Wound Musculoskeletal: No Fluid Collection, No Pain, Normal Range of Motion Extremities: Absent: edema - Labs and Meds CBC 02/07/18 Range/Units 05:11 WBC 13.4 H (4.5-11.0) K/mm3 RBC 4.97 (3.65-5.03) M/mm3 Hgb 13.2 (10.1-14.3) gm/dl Hct 41.9 (30.3-42.9) % Plt Count 307 (140-440) K/mm3 Comprehensive Metabolic Panel 07/02/18 Range/Units 05:11 Sodium 140 (137-145) mmol/L Potassium 5.5 H (3.6-5.0) mmol/L Chloride 102.2 (98-107) mmol/L Carbon Dioxide 26 (22-30) mmol/L BUN 25 H (7-17) mg/dL Creatinine 0.8 (0.7-1.2) mg/dL Glucose 179 H (65-100) mg/dL Calcium 9.2 (8.4-10.2) mg/dL - Imaging and Cardiology EKG: report reviewed, image reviewed Echo: report reviewed (12/2017: EF 10-15%, LV mod to severely dilated, impaired relaxation, LA mildly dilated, RV systolic function mildy reduced, RV slightly dilated, RA mild to mod dilated, mod TR, mild pulm HTN with RVSP 41mmHg. ) Cardiac cath: pending - Telemetry EKG Rhythm: Sinus Rhythm
[2018-02-07] MEDS ORDERED: NACL 0.9% 500 ML 500 ML IV SCH (14:00)
[2018-02-08] MEDS: PROVENTIL IH PRN (01:47)
[2018-02-08 05:23] LABS: Hemoglobin 13.2 gm/dl (10.1-14.3); Mean Corpuscular HGB Conc 32 % (30-34); Mean Corpuscular Hemoglobin 27 pg (28-32); Mean Corpuscular Volume 85 fl (79-97); Platelet Count 311 K/mm3 (140-440); Red Blood Count 4.85 M/mm3 (3.65-5.03)
[2018-02-08 05:34] LABS: BUN/Creatinine Ratio 36; Blood Urea Nitrogen 25 mg/dL (7-17); Calcium 9.1 mg/dL (8.4-10.2); Hemolysis Index 17
[2018-02-08] MEDS ORDERED: NACL 0.9% 500 ML 500 ML IV SCH (06:00)
[2018-02-08 06:42] LABS: Basophils % (Manual) 0 % (0.0-1.8); Eosinophils % (Manual) 0 % (0.0-4.3); Platelet Estimate Consistent w Auto; Total Cells Counted 100
[2018-02-08] MEDS: PULMICORT IH SCH ×2 (08:03→20:23)
[2018-02-08] MEDS: BROVANA NEBU IH SCH ×2 (08:03→20:23)
[2018-02-08] MEDS: DUONEB *Not for PRN Use IH SCH ×3 (08:03→20:23)
--- NOTE | 2018-02-08 09:58 | Progress Note ---
Assessment and Plan Assessment and plan: Patient is a 57 yo woman with a history of hypertension, respiratory failure, COPD and systolic heart failure who presents with SOB Acute on chronic hypoxic respiratory failure; Oxygen titrated to process more than 90%, nebulizers, IV steroids, IV antibiotics, inhalation steroids, supportive care Acute exacerbation of COPD; continue oxygen nebulizers supportive care Acute on chronic systolic Congestive heart failure; continue current anti- failure medications EF 10-15% Hypertension; well controlled, continue current antihypertensives and when necessary medications Gastroesophageal reflux disease. Protonix daily DVT prophylaxis; heparin Cardiac cath today History Interval history: Patient was seen and examined. Follow-up on current diagnosis of sob. Overnight uneventful. Patient denies any nausea/vomiting or severe headaches. Imaging, nursing note, chart, labs and old chart reviewed. Discussed with patient. Hospitalist Physical - Physical exam Narrative exam: GEN: WDWN, NAD, Awake, Alert, Orientated HEENT: NCAT, EOMI, PERRL, OP Clear NECK: supple, no adenopathy, no thyromegaly, no JVD CVS/HEART: RRR, normal S1S2, pulses present bilaterally CHEST/LUNGS: CTA B, Symmetrical chest expansion, good air entry bilaterally GI/Abdomen: soft, NTND, good bowel sounds, no guarding or rebound /Bladder: no suprapubic tenderness, no CVA or paraspinal tenderness EXT/Skin: no c/c/e, no obvious rash MSK: FROM x 4 Neuro: CN 2-12 grossly intact, no new focal deficits Psych: calm - Constitutional Vitals: Temp Pulse Resp BP Pulse Ox 98.4 F 83 20 135/93 98 02/08/18 07:45 02/08/18 07:45 02/08/18 07:45 02/08/18 07:45 02/08/18 07:45 General appearance: Present: no acute distress, well-nourished Results - Labs CBC & Chem 7: 02/08/18 05:00 02/08/18 05:00 Labs: Laboratory Last Values WBC 15.1 K/mm3 (4.5-11.0) H 02/08/18 05:00 RBC 4.85 M/mm3 (3.65-5.03) 02/08/18 05:00 Hgb 13.2 gm/dl (10.1-14.3) 02/08/18 05:00 Hct 41.0 % (30.3-42.9) 02/08/18 05:00 MCV 85 fl (79-97) 02/08/18 05:00 MCH 27 pg (28-32) L 02/08/18 05:00 MCHC 32 % (30-34) 02/08/18 05:00 RDW 17.0 % (13.2-15.2) H 02/08/18 05:00 Plt Count 311 K/mm3 (140-440) 02/08/18 05:00 Lymph % (Auto) 8.8 % (13.4-35.0) L 02/06/18 04:05 [place] % (Auto) 2.6 % (0.0-7.3) 02/06/18 04:05 Eos % (Auto) 0.0 % (0.0-4.3) 02/06/18 04:05 Baso % (Auto) 0.1 % (0.0-1.8) 02/06/18 04:05 Lymph # 0.7 K/mm3 (1.2-5.4) L 02/06/18 04:05 [place] # 0.2 K/mm3 (0.0-0.8) 02/06/18 04:05 Eos # 0.0 K/mm3 (0.0-0.4) 02/06/18 04:05 Baso # 0.0 K/mm3 (0.0-0.1) 02/06/18 04:05 Add Manual Diff Complete 02/08/18 05:00 Total Counted 100 02/08/18 05:00 Seg Neutrophils % Trick [place]ode[place] Rider 02/08/18 05:00 Seg Neuts % (Manual) 94.0 % (40.0-70.0) H 02/08/18 05:00 Band Neutrophils % 0 % 02/08/18 05:00 Lymphocytes % (Manual) 5.0 % (13.4-35.0) L 02/08/18 05:00 Reactive Lymphs % (Man) 0 % 02/08/18 05:00 Monocytes % (Manual) 1.0 % (0.0-7.3) 02/08/18 05:00 Eosinophils % (Manual) 0 % (0.0-4.3) 02/08/18 05:00 Basophils % (Manual) 0 % (0.0-1.8) 02/08/18 05:00 Metamyelocytes % 0 % 02/08/18 05:00 Myelocytes % 0 % 02/08/18 05:00 Promyelocytes % 0 % 02/08/18 05:00 Blast Cells % 0 % 02/08/18 05:00 Nucleated RBC % Not Reportable 02/08/18 05:00 Seg Neutrophils # 6.8 K/mm3 (1.8-7.7) 02/06/18 04:05 Seg Neutrophils # Man 14.2 K/mm3 (1.8-7.7) H 02/08/18 05:00 Band Neutrophils # 0.0 K/mm3 02/08/18 05:00 Lymphocytes # (Manual) 0.8 K/mm3 (1.2-5.4) L 02/08/18 05:00 Abs React Lymphs (Man) 0.0 K/mm3 02/08/18 05:00 Monocytes # (Manual) 0.2 K/mm3 (0.0-0.8) 02/08/18 05:00 Eosinophils # (Manual) 0.0 K/mm3 (0.0-0.4) 02/08/18 05:00 Basophils # (Manual) 0.0 K/mm3 (0.0-0.1) 02/08/18 05:00 Metamyelocytes # 0.0 K/mm3 02/08/18 05:00 Myelocytes # 0.0 K/mm3 02/08/18 05:00 Promyelocytes # 0.0 K/mm3 02/08/18 05:00 Blast Cells # 0.0 K/mm3 02/08/18 05:00 WBC Morphology Not Reportable 02/08/18 05:00 Hypersegmented Neuts Not Reportable 02/08/18 05:00 Hyposegmented Neuts Not Reportable 02/08/18 05:00 Hypogranular Neuts Not Reportable 02/08/18 05:00 Smudge Cells Not Reportable 02/08/18 05:00 Toxic Granulation Not Reportable 02/08/18 05:00 Toxic Vacuolation Not Reportable 02/08/18 05:00 Dohle Bodies Not Reportable 02/08/18 05:00 Pelger-Huet Anomaly Not Reportable 02/08/18 05:00 Kathia Rods Not Reportable 02/08/18 05:00 Platelet Estimate Consistent w auto 02/08/18 05:00 Clumped Platelets Not Reportable 02/08/18 05:00 Plt Clumps, EDTA Not Reportable 02/08/18 05:00 Large Platelets Not Reportable 02/08/18 05:00 Giant Platelets Not Reportable 02/08/18 05:00 Platelet Satelliting Not Reportable 02/08/18 05:00 Plt Morphology Comment Not Reportable 02/08/18 05:00 RBC Morphology Not Reportable 02/08/18 05:00 Dimorphic RBCs Not Reportable 02/08/18 05:00 Polychromasia Not Reportable 02/08/18 05:00 Hypochromasia Not Reportable 02/08/18 05:00 Poikilocytosis Not Reportable 02/08/18 05:00 Anisocytosis Not Reportable 02/08/18 05:00 Microcytosis Not Reportable 02/08/18 05:00 Macrocytosis Not Reportable 02/08/18 05:00 Spherocytes Not Reportable 02/08/18 05:00 Pappenheimer Bodies Not Reportable 02/08/18 05:00 Sickle Cells Not Reportable 02/08/18 05:00 Target Cells Not Reportable 02/08/18 05:00 Tear Drop Cells Not Reportable 02/08/18 05:00 Ovalocytes Not Reportable 02/08/18 05:00 Helmet Cells Not Reportable 02/08/18 05:00 [place] Bodies Not Reportable 02/08/18 05:00 [place] Rings Not Reportable 02/08/18 05:00 [place] Cells Not Reportable 02/08/18 05:00 Bite Cells Not Reportable 02/08/18 05:00 Crenated Cell Not Reportable 02/08/18 05:00 Elliptocytes Not Reportable 02/08/18 05:00 Acanthocytes (Spur) Not Reportable 02/08/18 05:00 Rouleaux Not Reportable 02/08/18 05:00 Hemoglobin C Crystals Not Reportable 02/08/18 05:00 Schistocytes Not Reportable 02/08/18 05:00 Malaria parasites Not Reportable 02/08/18 05:00 Johnnie Bodies Not Reportable 02/08/18 05:00 Hem Pathologist Commnt No 02/08/18 05:00 PT 13.7 Sec. (12.2-14.9) 02/08/18 05:00 INR 1.00 (0.87-1.13) 02/08/18 05:00 Sodium 129 mmol/L (137-145) L D 02/08/18 05:00 Potassium 4.8 mmol/L (3.6-5.0) 02/08/18 05:00 Chloride 94.2 mmol/L (98-107) L 02/08/18 05:00 Carbon Dioxide 25 mmol/L (22-30) 02/08/18 05:00 Anion Gap 15 mmol/L 02/08/18 05:00 BUN 25 mg/dL (7-17) H 02/08/18 05:00 Creatinine 0.7 mg/dL (0.7-1.2) 02/08/18 05:00 Estimated GFR > 60 ml/min 02/08/18 05:00 BUN/Creatinine Ratio 36 % 02/08/18 05:00 Glucose 189 mg/dL (65-100) H 02/08/18 05:00 POC Glucose 243 (70-105) H 02/07/18 22:19 Calcium 9.1 mg/dL (8.4-10.2) 02/08/18 05:00 Troponin T 0.047 ng/mL (0.00-0.029) H 02/05/18 09:41 NT-Pro-B Natriuret Pep 26162 pg/mL (0-900) H 02/05/18 09:41 Triglycerides 104 mg/dL (2-149) 02/05/18 09:41 Cholesterol 146 mg/dL (50-199) 02/05/18 09:41 LDL Cholesterol Direct 90 mg/dL (50-130) 02/05/18 09:41 HDL Cholesterol 47 mg/dL (40-59) 02/05/18 09:41 Cholesterol/HDL Ratio 3.10 % 02/05/18 09:41 Urine Color Yellow (Yellow) 02/07/18 06:15 Urine Turbidity Clear (Clear) 02/07/18 06:15 Urine pH 6.0 (5.0-7.0) 02/07/18 06:15 Ur Specific [place] 1.020 (1.003-1.030) 02/07/18 06:15 Urine Protein 100 mg/dl mg/dL (Negative) 02/07/18 06:15 Urine Glucose (UA) Neg mg/dL (Negative) 02/07/18 06:15 Urine Ketones Neg mg/dL (Negative) 02/07/18 06:15 Urine Blood Neg (Negative) 02/07/18 06:15 Urine Nitrite Neg (Negative) 02/07/18 06:15 Urine Bilirubin Neg (Negative) 02/07/18 06:15 Urine Urobilinogen < 2.0 mg/dL (<2.0) 02/07/18 06:15 Ur Leukocyte Esterase Neg (Negative) 02/07/18 06:15 Urine WBC (Auto) 1.0 /HPF (0.0-6.0) 02/07/18 06:15 Urine RBC (Auto) 1.0 /HPF (0.0-6.0) 02/07/18 06:15 U Epithel Cells (Auto) < 1.0 /HPF (0-13.0) 02/07/18 06:15
[2018-02-08] MEDS ORDERED: ECOTRIN PO SCH (10:00)
[2018-02-08] MEDS ORDERED: HEPARIN 10,000 UNITS/10 ML ONE (10:45)
[2018-02-08] MEDS ORDERED: CALAN ONE (10:45)
[2018-02-08] MEDS ORDERED: HEPARIN/NS 5000 UNIT/500ML(CATH LAB) 1,000 ML IR ONE (10:45)
[2018-02-08] MEDS ORDERED: NITROGLYCERIN SYRINGE 3 ML ONE (10:45)
[2018-02-08] MEDS ORDERED: XYLOCAINE 2% INFILTRATI ONE (10:45)
[2018-02-08] MEDS ORDERED: SUBLIMAZE ONE (10:46)
[2018-02-08] MEDS: LOVENOX SUB-Q SCH (11:04)
[2018-02-08] MEDS: VERSED ONE ×2 (11:32→11:33)
[2018-02-08] MEDS ORDERED: LASIX ONE (11:38)
--- NOTE | 2018-02-08 12:05 | Progress Note ---
Assessment and Plan acute systollic heart failure acute respiratory failure nstemi type 2 htn copd hyperlipidemia rec: change to po lasix 40mg bid in am and no aldactone or jinny or arb secondary to hyperkalemia, sleep study as out patient and change to lopressor for better heart rate control. Subjective Date of service: 02/08/18 Principal diagnosis: HF Interval history: pt sob has improved Objective Vital Signs Temp Pulse Pulse Resp Resp BP BP 02/08/18 08:00 22 02/08/18 07:45 98.4 F 83 20 135/93 02/08/18 04:45 97.5 F L 91 H 20 127/97 02/08/18 04:00 88 02/08/18 02:04 107 H 20 02/08/18 01:49 105 H 20 02/08/18 00:13 125/96 02/07/18 22:00 18 02/07/18 20:00 88 02/07/18 19:41 98.3 F 89 22 116/70 02/07/18 19:22 02/07/18 16:35 97.2 F L 87 16 138/85 02/07/18 15:38 87 20 02/07/18 15:28 84 20 Pulse Ox 02/08/18 08:00 97 02/08/18 07:45 98 02/08/18 04:45 89 02/08/18 04:00 02/08/18 02:04 02/08/18 01:49 02/08/18 00:13 02/07/18 22:00 02/07/18 20:00 02/07/18 19:41 94 02/07/18 19:22 99 02/07/18 16:35 93 02/07/18 15:38 02/07/18 15:28 - Physical Examination General: No Apparent Distress HEENT: Positive: PERRL, Normocephaly, Mucus Membranes Moist Neck: Positive: neck supple, trachea midline Cardiac: Positive: Reg Rate and Rhythm Lungs: Positive: Decreased Breath Sounds Neuro: Positive: Grossly Intact Abdomen: Positive: Soft. Negative: Tender Skin: Positive: Clear. Negative: Rash, Wound Musculoskeletal: No Fluid Collection, No Pain, Normal Range of Motion Extremities: Absent: edema - Labs and Meds Coagulation 02/08/18 Range/Units 05:00 PT 13.7 (12.2-14.9) Sec. INR 1.00 (0.87-1.13) CBC 02/08/18 Range/Units 05:00 WBC 15.1 H (4.5-11.0) K/mm3 RBC 4.85 (3.65-5.03) M/mm3 Hgb 13.2 (10.1-14.3) gm/dl Hct 41.0 (30.3-42.9) % Plt Count 311 (140-440) K/mm3 Comprehensive Metabolic Panel 02/08/18 Range/Units 05:00 Sodium 129 L D (137-145) mmol/L Potassium 4.8 (3.6-5.0) mmol/L Chloride 94.2 L (98-107) mmol/L Carbon Dioxide 25 (22-30) mmol/L BUN 25 H (7-17) mg/dL Creatinine 0.7 (0.7-1.2) mg/dL Glucose 189 H (65-100) mg/dL Calcium 9.1 (8.4-10.2) mg/dL - Imaging and Cardiology EKG: report reviewed, image reviewed Echo: report reviewed (12/2017: EF 10-15%, LV mod to severely dilated, impaired relaxation, LA mildly dilated, RV systolic function mildy reduced, RV slightly dilated, RA mild to mod dilated, mod TR, mild pulm HTN with RVSP 41mmHg. ) Cardiac cath: report reviewed (normal coronaries and ef 15% lvedp 40 mm hg) - Telemetry EKG Rhythm: Sinus Rhythm
--- NOTE | 2018-02-08 12:19 | Cardiac Catherization Report ---
PROCEDURE: Left heart catheterization. CLINICAL INFORMATION: This is a 57-year-old female with hypertension, smoker with COPD, found with severe LV dysfunction with congestive heart failure, is here for left heart catheterization. The patient was done on moderate sedation, total sedation time was 15 minutes. START TIME: 11:32 a.m. finished at 11:45 a.m. The patient received 0.5 mg Versed and 25 mcg of fentanyl. PROCEDURE DETAILS: Left heart catheterization performed in the right radial artery, sterile technique, local anesthesia, 6-Cambodian radial sheath inserted. PROCEDURE FINDINGS: Left system engaged the left system with a JL3.5 catheter. Left main is a very large vessel, is patent. LAD is a very large vessel, is patent from proximally and distally. Diagonal 1 and diagonal 2 are medium caliber vessels. Circumflex is a large caliber vessel that bifurcates to a large OM1 and OM2. RCA engaged with JR4, is a large caliber vessel that is patent from proximally and distally. PDA and PLV are large caliber vessel that is patent. LV gram done in [place] and [place] shows severe LV dilatation with severe LV dysfunction, EF 15%. LVEDP of 40 mmHg, LV is 141/40, aortic is 142/102. No gradient across the aortic valve on pullback. 5-Cambodian catheters were taken over 6-Cambodian radial sheath was discontinued. Radial band applied. No hematoma, no bleeding. SUMMARY: 1. Patent left main, LAD, circ, OM1, OM2, and RCA large epicardial vessels. 2. Severe left ventricular dysfunction, elevated left end-diastolic pressure. 3. Nonischemic cardiomyopathy. 4. Medical management. JOB# [id number] MIHAI/AVERY
[2018-02-08] MEDS: SPIRIVA IH SCH (14:19)
[2018-02-08 16:22] LABS: BUN/Creatinine Ratio 29; Blood Urea Nitrogen 26 mg/dL (7-17); Hemolysis Index 27
[2018-02-08] MEDS: LOPRESSOR PO SCH ×2 (16:33→22:29)
[2018-02-08] MEDS: SODIUM CHLORIDE FLUSH SYRINGE 10 ML IV SCH ×2 (16:34→22:28)
[2018-02-08] MEDS: LASIX PO SCH (17:25)
[2018-02-09 05:40] LABS: BUN/Creatinine Ratio 32; Blood Urea Nitrogen 32 mg/dL (7-17); Calcium 8.6 mg/dL (8.4-10.2); Hemolysis Index 15
[2018-02-09] MEDS: LASIX PO SCH (06:25)
[2018-02-09] MEDS: PULMICORT IH SCH (08:21)
[2018-02-09] MEDS: DUONEB *Not for PRN Use IH SCH ×2 (08:21→13:01)
[2018-02-09] MEDS: BROVANA NEBU IH SCH (08:21)
--- NOTE | 2018-02-09 09:06 | Progress Note ---
Assessment and Plan cardiac status stable. continue current mgt. - Patient Problems (1) Acute combined systolic and diastolic heart failure Current Visit: Yes Status: Acute (2) Dilated cardiomyopathy Current Visit: Yes Status: Chronic Subjective Date of service: 02/09/18 Principal diagnosis: HF Interval history: less sob no chest pain Objective Vital Signs Temp Pulse Pulse Resp Resp BP BP 02/09/18 08:31 95 H 18 02/09/18 08:25 02/09/18 08:24 94 H 18 02/09/18 07:24 98.0 F 79 20 126/73 02/09/18 06:00 98.1 F 78 20 126/80 02/09/18 00:54 98.5 F 79 20 97/73 02/08/18 22:29 97 H 133/79 02/08/18 20:35 98 H 20 02/08/18 20:27 02/08/18 20:26 95 H 20 02/08/18 19:54 98.3 F 89 20 133/78 02/08/18 16:05 98.2 F 96 H 18 132/82 02/08/18 14:30 96 H 20 02/08/18 14:15 98 H 20 02/08/18 13:15 98.0 F 96 H 18 101/62 Pulse Ox 02/09/18 08:31 02/09/18 08:25 96 02/09/18 08:24 02/09/18 07:24 92 02/09/18 06:00 94 02/09/18 00:54 83 L 02/08/18 22:29 02/08/18 20:35 02/08/18 20:27 95 02/08/18 20:26 02/08/18 19:54 92 02/08/18 16:05 93 02/08/18 14:30 02/08/18 14:15 02/08/18 13:15 96 - Physical Examination General: No Apparent Distress HEENT: Positive: PERRL, Normocephaly, Mucus Membranes Moist Neck: Positive: neck supple, trachea midline Cardiac: Positive: Reg Rate and Rhythm. Negative: S3 Lungs: Positive: clear to auscultation, Decreased Breath Sounds Neuro: Positive: Grossly Intact Abdomen: Positive: Soft. Negative: Tender Skin: Positive: Clear. Negative: Rash, Wound Musculoskeletal: No Fluid Collection, No Pain, Normal Range of Motion Extremities: Absent: edema - Labs and Meds Comprehensive Metabolic Panel 02/08/18 02/09/18 Range/Units 15:31 04:55 Sodium 139 D 139 (137-145) mmol/L Potassium 4.5 4.3 (3.6-5.0) mmol/L Chloride 96.7 L 98.3 (98-107) mmol/L Carbon Dioxide 26 27 (22-30) mmol/L BUN 26 H 32 H (7-17) mg/dL Creatinine 0.9 1.0 (0.7-1.2) mg/dL Glucose 283 H 278 H (65-100) mg/dL Calcium 9.0 8.6 (8.4-10.2) mg/dL - Imaging and Cardiology EKG: report reviewed, image reviewed Echo: report reviewed (12/2017: EF 10-15%, LV mod to severely dilated, impaired relaxation, LA mildly dilated, RV systolic function mildy reduced, RV slightly dilated, RA mild to mod dilated, mod TR, mild pulm HTN with RVSP 41mmHg. ) Cardiac cath: report reviewed (normal coronaries and ef 15% lvedp 40 mm hg)
[2018-02-09] MEDS: LOVENOX SUB-Q SCH (09:53)
[2018-02-09] MEDS: LOPRESSOR PO SCH (09:54)
[2018-02-09] MEDS: SODIUM CHLORIDE FLUSH SYRINGE 10 ML IV SCH (09:54)
[2018-02-09 12:12] VITALS: BP 100/60
[2018-02-09] MEDS: SPIRIVA IH SCH (13:02)
--- NOTE | 2018-02-09 13:59 | Progress Note ---
Assessment and Plan Assessment and plan: Patient is a 57 yo woman from [facility] with a history of hypertension, COPD and systolic heart failure who presented with SOB -Acute on chronic hypoxic respiratory failure; Oxygen weaned off, nebulizers, IV steroids, IV antibiotics, inhalation steroids, supportive care -Acute exacerbation of COPD; continue oxygen nebulizers supportive care -Acute on chronic systolic heart failure; continue current anti-failure medications EF 10-15% -Non ischemic Cardiomyopathy -Hypertension; well controlled, continue current antihypertensives and when necessary medications -Gastroesophageal reflux disease. Protonix daily -DVT prophylaxis: heparin Cardiac cath done 02/09/18 Patient doesn't want to leave the hospital and go the [facility] today. History Interval history: Patient was seen and examined. Follow-up on current diagnosis of sob. Overnight uneventful. Patient denies any nausea/vomiting or severe headaches. Imaging, nursing note, chart, labs and old chart reviewed. Discussed with patient. Hospitalist Physical - Physical exam Narrative exam: GEN: WDWN, NAD, Awake, Alert, Orientated HEENT: NCAT, EOMI, PERRL, OP Clear NECK: supple, no adenopathy, no thyromegaly, no JVD CVS/HEART: RRR, normal S1S2, pulses present bilaterally CHEST/LUNGS: CTA B, Symmetrical chest expansion, good air entry bilaterally GI/Abdomen: soft, NTND, good bowel sounds, no guarding or rebound /Bladder: no suprapubic tenderness, no CVA or paraspinal tenderness EXT/Skin: no c/c/e, no obvious rash MSK: FROM x 4 Neuro: CN 2-12 grossly intact, no new focal deficits Psych: calm - Constitutional Vitals: Temp Pulse Resp BP Pulse Ox 98.4 F 84 18 100/60 94 02/09/18 11:25 02/09/18 13:12 02/09/18 13:12 02/09/18 11:25 02/09/18 11:25 General appearance: Present: no acute distress, well-nourished Results - Labs CBC & Chem 7: 02/08/18 05:00 02/09/18 04:55 Labs: Laboratory Last Values WBC 15.1 K/mm3 (4.5-11.0) H 02/08/18 05:00 RBC 4.85 M/mm3 (3.65-5.03) 02/08/18 05:00 Hgb 13.2 gm/dl (10.1-14.3) 02/08/18 05:00 Hct 41.0 % (30.3-42.9) 02/08/18 05:00 MCV 85 fl (79-97) 02/08/18 05:00 MCH 27 pg (28-32) L 02/08/18 05:00 MCHC 32 % (30-34) 02/08/18 05:00 RDW 17.0 % (13.2-15.2) H 02/08/18 05:00 Plt Count 311 K/mm3 (140-440) 02/08/18 05:00 Lymph % (Auto) 8.8 % (13.4-35.0) L 02/06/18 04:05 [place] % (Auto) 2.6 % (0.0-7.3) 02/06/18 04:05 Eos % (Auto) 0.0 % (0.0-4.3) 02/06/18 04:05 Baso % (Auto) 0.1 % (0.0-1.8) 02/06/18 04:05 Lymph # 0.7 K/mm3 (1.2-5.4) L 02/06/18 04:05 [place] # 0.2 K/mm3 (0.0-0.8) 02/06/18 04:05 Eos # 0.0 K/mm3 (0.0-0.4) 02/06/18 04:05 Baso # 0.0 K/mm3 (0.0-0.1) 02/06/18 04:05 Add Manual Diff Complete 02/08/18 05:00 Total Counted 100 02/08/18 05:00 Seg Neutrophils % Parts Assembler 02/08/18 05:00 Seg Neuts % (Manual) 94.0 % (40.0-70.0) H 02/08/18 05:00 Band Neutrophils % 0 % 02/08/18 05:00 Lymphocytes % (Manual) 5.0 % (13.4-35.0) L 02/08/18 05:00 Reactive Lymphs % (Man) 0 % 02/08/18 05:00 Monocytes % (Manual) 1.0 % (0.0-7.3) 02/08/18 05:00 Eosinophils % (Manual) 0 % (0.0-4.3) 02/08/18 05:00 Basophils % (Manual) 0 % (0.0-1.8) 02/08/18 05:00 Metamyelocytes % 0 % 02/08/18 05:00 Myelocytes % 0 % 02/08/18 05:00 Promyelocytes % 0 % 02/08/18 05:00 Blast Cells % 0 % 02/08/18 05:00 Nucleated RBC % Not Reportable 02/08/18 05:00 Seg Neutrophils # 6.8 K/mm3 (1.8-7.7) 02/06/18 04:05 Seg Neutrophils # Man 14.2 K/mm3 (1.8-7.7) H 02/08/18 05:00 Band Neutrophils # 0.0 K/mm3 02/08/18 05:00 Lymphocytes # (Manual) 0.8 K/mm3 (1.2-5.4) L 02/08/18 05:00 Abs React Lymphs (Man) 0.0 K/mm3 02/08/18 05:00 Monocytes # (Manual) 0.2 K/mm3 (0.0-0.8) 02/08/18 05:00 Eosinophils # (Manual) 0.0 K/mm3 (0.0-0.4) 02/08/18 05:00 Basophils # (Manual) 0.0 K/mm3 (0.0-0.1) 02/08/18 05:00 Metamyelocytes # 0.0 K/mm3 02/08/18 05:00 Myelocytes # 0.0 K/mm3 02/08/18 05:00 Promyelocytes # 0.0 K/mm3 02/08/18 05:00 Blast Cells # 0.0 K/mm3 02/08/18 05:00 WBC Morphology Not Reportable 02/08/18 05:00 Hypersegmented Neuts Not Reportable 02/08/18 05:00 Hyposegmented Neuts Not Reportable 02/08/18 05:00 Hypogranular Neuts Not Reportable 02/08/18 05:00 Smudge Cells Not Reportable 02/08/18 05:00 Toxic Granulation Not Reportable 02/08/18 05:00 Toxic Vacuolation Not Reportable 02/08/18 05:00 Dohle Bodies Not Reportable 02/08/18 05:00 Pelger-Huet Anomaly Not Reportable 02/08/18 05:00 Kathia Rods Not Reportable 02/08/18 05:00 Platelet Estimate Consistent w auto 02/08/18 05:00 Clumped Platelets Not Reportable 02/08/18 05:00 Plt Clumps, EDTA Not Reportable 02/08/18 05:00 Large Platelets Not Reportable 02/08/18 05:00 Giant Platelets Not Reportable 02/08/18 05:00 Platelet Satelliting Not Reportable 02/08/18 05:00 Plt Morphology Comment Not Reportable 02/08/18 05:00 RBC Morphology Not Reportable 02/08/18 05:00 Dimorphic RBCs Not Reportable 02/08/18 05:00 Polychromasia Not Reportable 02/08/18 05:00 Hypochromasia Not Reportable 02/08/18 05:00 Poikilocytosis Not Reportable 02/08/18 05:00 Anisocytosis Not Reportable 02/08/18 05:00 Microcytosis Not Reportable 02/08/18 05:00 Macrocytosis Not Reportable 02/08/18 05:00 Spherocytes Not Reportable 02/08/18 05:00 Pappenheimer Bodies Not Reportable 02/08/18 05:00 Sickle Cells Not Reportable 02/08/18 05:00 Target Cells Not Reportable 02/08/18 05:00 Tear Drop Cells Not Reportable 02/08/18 05:00 Ovalocytes Not Reportable 02/08/18 05:00 Helmet Cells Not Reportable 02/08/18 05:00 [place] Bodies Not Reportable 02/08/18 05:00 [place] Rings Not Reportable 02/08/18 05:00 Karen Cells Not Reportable 02/08/18 05:00 Bite Cells Not Reportable 02/08/18 05:00 Crenated Cell Not Reportable 02/08/18 05:00 Elliptocytes Not Reportable 02/08/18 05:00 Acanthocytes (Spur) Not Reportable 02/08/18 05:00 Rouleaux Not Reportable 02/08/18 05:00 Hemoglobin C Crystals Not Reportable 02/08/18 05:00 Schistocytes Not Reportable 02/08/18 05:00 Malaria parasites Not Reportable 02/08/18 05:00 Johnnie Bodies Not Reportable 02/08/18 05:00 Hem Pathologist Commnt No 02/08/18 05:00 PT 13.7 Sec. (12.2-14.9) 02/08/18 05:00 INR 1.00 (0.87-1.13) 02/08/18 05:00 Sodium 139 mmol/L (137-145) 02/09/18 04:55 Potassium 4.3 mmol/L (3.6-5.0) 02/09/18 04:55 Chloride 98.3 mmol/L (98-107) 02/09/18 04:55 Carbon Dioxide 27 mmol/L (22-30) 02/09/18 04:55 Anion Gap 18 mmol/L 02/09/18 04:55 BUN 32 mg/dL (7-17) H 02/09/18 04:55 Creatinine 1.0 mg/dL (0.7-1.2) 02/09/18 04:55 Estimated GFR > 60 ml/min 02/09/18 04:55 BUN/Creatinine Ratio 32 % 02/09/18 04:55 Glucose 278 mg/dL (65-100) H 02/09/18 04:55 POC Glucose 261 (70-105) H 02/08/18 16:11 Calcium 8.6 mg/dL (8.4-10.2) 02/09/18 04:55 Troponin T 0.047 ng/mL (0.00-0.029) H 02/05/18 09:41 NT-Pro-B Natriuret Pep 34285 pg/mL (0-900) H 02/05/18 09:41 Triglycerides 104 mg/dL (2-149) 02/05/18 09:41 Cholesterol 146 mg/dL (50-199) 02/05/18 09:41 LDL Cholesterol Direct 90 mg/dL (50-130) 02/05/18 09:41 HDL Cholesterol 47 mg/dL (40-59) 02/05/18 09:41 Cholesterol/HDL Ratio 3.10 % 02/05/18 09:41 Urine Color Yellow (Yellow) 02/07/18 06:15 Urine Turbidity Clear (Clear) 02/07/18 06:15 Urine pH 6.0 (5.0-7.0) 02/07/18 06:15 Ur Specific [place] 1.020 (1.003-1.030) 02/07/18 06:15 Urine Protein 100 mg/dl mg/dL (Negative) 02/07/18 06:15 Urine Glucose (UA) Neg mg/dL (Negative) 02/07/18 06:15 Urine Ketones Neg mg/dL (Negative) 02/07/18 06:15 Urine Blood Neg (Negative) 02/07/18 06:15 Urine Nitrite Neg (Negative) 02/07/18 06:15 Urine Bilirubin Neg (Negative) 02/07/18 06:15 Urine Urobilinogen < 2.0 mg/dL (<2.0) 02/07/18 06:15 Ur Leukocyte Esterase Neg (Negative) 02/07/18 06:15 Urine WBC (Auto) 1.0 /HPF (0.0-6.0) 02/07/18 06:15 Urine RBC (Auto) 1.0 /HPF (0.0-6.0) 02/07/18 06:15 U Epithel Cells (Auto) < 1.0 /HPF (0-13.0) 02/07/18 06:15
--- NOTE | 2018-02-09 14:13 | Discharge Summary ---
Providers - Providers Date of Admission: 02/05/18 10:38 Date of discharge: 02/09/18 Attending physician: JIM GALLAGHER 02/05/18 12:23 Consult to Physician [CONS] Routine Comment: Consulting Provider: AWA RIVAS Physician Instructions: Reason For Exam: chf 02/08/18 12:02 Consult to Cardiac Rehabilitation [CONS] Routine Reason For Exam: Cardiac Rehab Evaluation Primary care physician: LIVESTOCK FEEDER Hospitalization Condition: Stable Hospital course: Patient is a 57 yo woman from [facility] with a history of hypertension, COPD and systolic heart failure who presented with SOB -Acute on chronic hypoxic respiratory failure; Oxygen weaned off, nebulizers, IV steroids, added levaquin, inhalation steroids, supportive care -Acute exacerbation of COPD; continue oxygen nebulizers supportive care -Acute on chronic systolic heart failure; continue current anti-failure medications EF 10-15% -Hyperkalemia and cough from Lisinopril -Non ischemic Cardiomyopathy -Hypertension; well controlled, continue current antihypertensives and when necessary medications -Gastroesophageal reflux disease. Protonix daily -DVT prophylaxis: heparin Cardiac cath done 02/09/18 Patient doesn't want to leave the hospital and go the [facility] today. Disposition: DC-01 TO HOME OR SELFCARE Time spent for discharge: 35 minutes Core Measure Documentation - Palliative Care Palliative Care/ Comfort Measures: Not Applicable - Core Measures Any of the following diagnoses?: heart failure - VTE Discharge Requirements Deep Vein Thrombosis/Pulmonary Embolism Present on Admission: No Has pt received <5 days of overlap therapy or INR<2.0: No Anticoagulant overlap therapy prescribed at discharge: No Contraindication No Overlap Therapy order at DC: Not Indicated - Heart Failure Discharge Requirements KELLY/ARB for LVSD if EF <40%: No Reason for no KELLY/ARB: Hyperkalemia Beta sylvester at discharge: Yes Exam - Physical Exam Narrative exam: GEN: WDWN, NAD, Awake, Alert, Orientated HEENT: NCAT, EOMI, PERRL, OP Clear NECK: supple, no adenopathy, no thyromegaly, no JVD CVS/HEART: RRR, normal S1S2, pulses present bilaterally CHEST/LUNGS: CTA B, Symmetrical chest expansion, good air entry bilaterally GI/Abdomen: soft, NTND, good bowel sounds, no guarding or rebound /Bladder: no suprapubic tenderness, no CVA or paraspinal tenderness EXT/Skin: no c/c/e, no obvious rash MSK: FROM x 4 Neuro: CN 2-12 grossly intact, no new focal deficits Psych: calm - Constitutional Vitals: Temp Pulse Resp BP Pulse Ox 98.4 F 84 18 100/60 94 02/09/18 11:25 02/09/18 13:12 02/09/18 13:12 02/09/18 11:25 02/09/18 11:25 Plan Activity: up only with assistance, fall precautions, other (no strenous activity until cleared by Cardiology) Diet: low salt Follow up with: PRIMARY CAREMD [Primary Care Provider] - 3-5 Days BRICE NUNEZ MD [Staff Physician] - 7 Days (Follow up in our [place] office with Dr. John Nunez on 02/18/2018 @ 3:00pm) Prescriptions: ALBUTEROL NEB's [Proventil 0.083% NEBS] 2.5 mg IH TID PRN #75 ml PRN Reason: Wheezing Albuterol Sulfate [Ventolin HFA] 2 puff IH Q4H PRN #1 hfa.aer.ad PRN Reason: Shortness Of Breath Budesonide/Formoterol Fumarate [Symbicort 160-4.5 Mcg Inhaler] 2 puff IH BID #1 hfa.aer.ad Furosemide [Lasix TAB] 40 mg PO 0600,1800 #60 tablet Levofloxacin [Levaquin] 750 mg PO QDAY #7 tablet methylPREDNISolone [Medrol Dose Justin] 1 dose PO DAILY #1 pack Metoprolol [Lopressor TAB] 25 mg PO BID #60 tablet oxyCODONE /ACETAMINOPHEN [Percocet 5/325 mg] 1 tab PO Q6H PRN #12 tablet PRN Reason: Pain, Moderate (4-6) Ipratropium/Albuterol Sulfate [DUONEB *Not for PRN Use*] 1 ampul IH BIDRT #30 ampul.neb
[2018-02-09] MEDS ORDERED: LEVAQUIN PO SCH (15:00)
== END 2018-02-09 14:43 | disposition home or self-care (01) | DRG 280 ==
LOC: ED 08:49 → 4A 10:38
PROVIDERS: ADMIT Hospitalist; ATTEND Internal Medicine
PROC: 4A023N7 Measurement of Cardiac Sampling and Pressure, Left Heart, Percutaneous Approach (ICD-10-PCS; principal; 2018-02-08)
PROC: B2151ZZ Fluoroscopy of Left Heart using Low Osmolar Contrast (ICD-10-PCS; 2018-02-08)
PROC: B2111ZZ Fluoroscopy of Multiple Coronary Arteries using Low Osmolar Contrast (ICD-10-PCS; 2018-02-08)
DX: I21.A1 Myocardial infarction type 2 (principal); J96.21 Acute and chronic respiratory failure with hypoxia; K85.90 Acute pancreatitis without necrosis or infection, unspecified; I50.43 Acute on chronic combined systolic (congestive) and diastolic (congestive) heart failure; I11.0 Hypertensive heart disease with heart failure; J44.1 Chronic obstructive pulmonary disease with (acute) exacerbation; M19.90 Unspecified osteoarthritis, unspecified site; K21.9 Gastro-esophageal reflux disease without esophagitis; G47.30 Sleep apnea, unspecified; E87.5 Hyperkalemia; I42.0 Dilated cardiomyopathy; Z87.891 Personal history of nicotine dependence
CPT/HCPCS: 36415; 71045; 71046; 76770; 80048; 80061; 81001; 82962; 83880; 84484; 85007; 85025; 85610; 93005; 93010; 93458; 94640; 94760; 96374; C1894; J1644; J1650; J1940; J2250; J2920; J3010; J7040; Q9967

== ENCOUNTER 2018-05-13 09:15 | Emergency (ER) | payer MEDICAID ==
[2018-05-13 09:24] VITALS: BP 113/71
--- NOTE | 2018-05-13 10:36 | Emergency Department Report ---
HPI - General Chief Complaint: Upper Respiratory Infection Time Seen by Provider: 05/13/18 10:30 - HPI HPI: Room 30 The patient is a 57-year-old female presenting with a chief complaint of cough. The patient states the past 3 weeks she's had a cough occasionally productive of clear sputum. Patient states she has had occasional rhinorrhea and some sneezing. Patient denies fever. Patient states she smokes cigarettes and isn' t certain this is contributing to her symptoms. Location: Lungs Duration: Weeks Quality: Cough Severity: Moderate Modifying factors: [see above] Context: [see above] Mode of transportation: [not driving] ED Past Medical Hx - Past Medical History Hx Hypertension: Yes Hx Arthritis: Yes (OSTEOARTHRITIS) Hx Asthma: Yes Hx COPD: Yes (bronchitis) Additional medical history: ALLERGIES - Surgical History Past Surgical History?: Yes Additional Surgical History: right hip replacement, right femur fx, Right knee surgery - Family History Family history: no significant - Social History Smoking Status: Current Every Day Smoker (1/7 per day) Substance Use Type: None (denies illicit drug use) - Medications Home Medications: Home Medications Medication Instructions Recorded Confirmed Last Taken Type Thiamine [Vitamin B-1] 100 mg PO QDAY #30 tablet 01/03/18 02/05/18 Unknown Rx Fluticasone [Flonase] 1 spray NS QDAY #1 bottle 01/18/18 02/05/18 Unknown Rx ALBUTEROL NEB's [Proventil 0.083% 2.5 mg IH TID PRN #75 ml 02/09/18 Unknown Rx NEBS] Acetaminophen [Acetaminophen TAB] 650 mg PO Q4H PRN #30 tablet 02/09/18 Unknown Rx Albuterol Sulfate [Ventolin HFA] 2 puff IH Q4H PRN #1 hfa.aer.ad 02/09/18 Unknown Rx Budesonide/Formoterol Fumarate 2 puff IH BID #1 hfa.aer.ad 02/09/18 Unknown Rx [Symbicort 160-4.5 Mcg Inhaler] Furosemide [Lasix TAB] 40 mg PO 0600,1800 #60 tablet 02/09/18 Unknown Rx Ipratropium/Albuterol Sulfate 1 ampul IH BIDRT #30 ampul.neb 02/09/18 Unknown Rx [DUONEB *Not for PRN Use*] Metoprolol [Lopressor TAB] 25 mg PO BID #60 tablet 02/09/18 Unknown Rx levoFLOXacin [Levaquin] 750 mg PO QDAY #7 tablet 02/09/18 Unknown Rx methylPREDNISolone [Medrol Dose 1 dose PO DAILY #1 pack 02/09/18 Unknown Rx Andi] oxyCODONE /ACETAMINOPHEN [Percocet 1 tab PO Q6H PRN #12 tablet 02/09/18 Unknown Rx 5/325 mg] ALBUTEROL Inhaler (OR & NICU) 2 puff IH QID PRN #1 inhalation 05/13/18 Unknown Rx [Proair] Azithromycin [Zithromax Z-ANDI] 0 mg PO DAILY #6 tab 05/13/18 Unknown Rx Benzonatate [Tessalon Perles] 100 mg PO Q8HR #30 capsule 05/13/18 Unknown Rx ED Review of Systems ROS: Stated complaint: COUGHING/FLU Other details as noted in HPI Constitutional: denies: fever Eyes: denies: eye pain ENT: throat pain Respiratory: cough Cardiovascular: denies: chest pain Endocrine: no symptoms reported Gastrointestinal: denies: abdominal pain Genitourinary: denies: dysuria Musculoskeletal: denies: back pain Neurological: denies: headache Physical Exam - Physical Exam Vital Signs: Vital Signs 05/13/18 09:20 Temperature 98.0 F Pulse Rate 86 Respiratory 18 Rate Blood Pressure 113/71 O2 Sat by Pulse 97 Oximetry Physical Exam: GENERAL: The patient is well-developed well-nourished female sitting in chair not appearing to be in acute distress. [] HEENT: Normocephalic. Atraumatic. Extraocular motions are intact. Patient has moist mucous membranes. NECK: Supple. Trachea midline CHEST/LUNGS: Clear to auscultation. There is no respiratory distress noted. HEART/CARDIOVASCULAR: Regular. There is no tachycardia. There is no gallop rub or murmur. ABDOMEN: Abdomen is soft, nontender. Patient has normal bowel sounds. There is no abdominal distention. SKIN: There is no rash. There is no edema. There is no diaphoresis. NEURO: The patient is awake, alert, and oriented. The patient is cooperative. The patient has normal speech MUSCULOSKELETAL: There is no evidence of acute injury. ED Course Vital Signs 05/13/18 09:20 Temperature 98.0 F Pulse Rate 86 Respiratory 18 Rate Blood Pressure 113/71 O2 Sat by Pulse 97 Oximetry ED Medical Decision Making - Radiology Data Radiology results: image reviewed (chest x-ray) interpreted by me: Chest x-ray-no definite focal infiltrates. No pneumothorax - Differential Diagnosis acute bronchitis, pneumonia, pneumothorax Critical care attestation.: If time is entered above; I have spent that time in minutes in the direct care of this critically ill patient, excluding procedure time. ED Disposition Clinical Impression: Acute bronchitis Disposition: DC-01 TO HOME OR SELFCARE Is pt being admited?: No Does the pt Need Aspirin: No Condition: Stable Instructions: Acute Bronchitis (ED) Additional Instructions: Return to the emergency department immediately should you develop worsening symptoms, fever, inability to tolerate food or liquid or any other concerns. Prescriptions: ALBUTEROL Inhaler (OR & NICU) [Proair] 2 puff IH QID PRN #1 inhalation PRN Reason: Shortness Of Breath Azithromycin [Zithromax Z-ANDI] 0 mg PO DAILY #6 tab Benzonatate [Tessalon Perles] 100 mg PO Q8HR #30 capsule Referrals: PRIMARY CAREMD [Primary Care Provider] - 3-5 Days CLAUDIO CHÁVEZ MD [Staff Physician] - 3-5 Days (Dr. Chávez is a heating element repairer. Please follow up with him for further evaluation) Time of Disposition: 10:48
--- NOTE | 2018-05-13 17:09 | XRay Report ---
FINAL REPORT EXAM: XR CHEST ROUTINE 2V HISTORY: cough TECHNIQUE: Chest two views PA and lateral PRIORS: Comparison is dated February 06, 2018 FINDINGS: There is mild cardiac enlargement. No focal pulmonary infiltrate identified. No pleural fluid collection seen. The pulmonary vasculature is unremarkable. IMPRESSION: Mild cardiomegaly No acute pulmonary findings
== END 2018-05-13 11:17 | disposition home or self-care (01) ==
LOC: ED 09:15
DX: J20.9 Acute bronchitis, unspecified (principal); I10 Essential (primary) hypertension; M19.90 Unspecified osteoarthritis, unspecified site; J44.9 Chronic obstructive pulmonary disease, unspecified; F17.200 Nicotine dependence, unspecified, uncomplicated; Z88.8 Allergy status to other drugs, medicaments and biological substances
CPT/HCPCS: 71046; 99283

== ENCOUNTER 2019-02-06 09:12 | Emergency (ER) | payer MEDICAID ==
[2019-02-06 09:18] VITALS: BP 143/59
--- NOTE | 2019-02-06 10:41 | XRay Report ---
CHEST 2 VIEWS INDICATION / CLINICAL INFORMATION: productive cough. COMPARISON: Chest x-ray on 05/13/2018. FINDINGS: SUPPORT DEVICES: None. HEART / MEDIASTINUM: Stable mild cardiomegaly. LUNGS / PLEURA: Stable mild linear scarring in the right lower lung. No focal consolidation or signif icant pleural effusion. No pneumothorax. ADDITIONAL FINDINGS: No significant additional findings. IMPRESSION: 1. No acute findings. Stable mild cardiomegaly. Signer Name: Quoc Lorenz MD Signed: 02/06/2019 10:37 AM Workstation Name: [id number]
--- NOTE | 2019-02-06 11:10 | Emergency Department Report ---
- General Chief Complaint: Back Pain/Injury Stated Complaint: BACK PAIN Time Seen by Provider: 02/06/19 10:09 Source: patient Mode of arrival: Ambulatory Limitations: No Limitations - History of Present Illness Initial Comments: Patient is a 58-year-old female who has a past medical history of COPD hypertension and congestive heart failure with EF of 10-15% who is presenting with 1 week of cough. Patient's cough is productive of some clear sputum. Patient states that she has left-sided back pain associated with this cough and also has some pain in her throat when she coughs as well. Patient denies nausea vomiting fevers or chills. Severity scale (0 -10): 7 Quality: sharp Consistency: constant Worsens With: other (cough as well as movement) Associated Symptoms: denies: fever - Related Data Previous Rx's Medication Instructions Recorded Last Taken Type Thiamine [Vitamin B-1] 100 mg PO QDAY #30 tablet 01/03/18 Unknown Rx Fluticasone [Flonase] 1 spray NS QDAY #1 bottle 01/18/18 Unknown Rx ALBUTEROL NEB's [Proventil 0.083% 2.5 mg IH TID PRN #75 ml 02/09/18 Unknown Rx NEBS] Acetaminophen [Acetaminophen TAB] 650 mg PO Q4H PRN #30 tablet 02/09/18 Unknown Rx Albuterol Sulfate [Ventolin HFA] 2 puff IH Q4H PRN #1 hfa.aer.ad 02/09/18 Unknown Rx Budesonide/Formoterol Fumarate 2 puff IH BID #1 hfa.aer.ad 02/09/18 Unknown Rx [Symbicort 160-4.5 Mcg Inhaler] Furosemide [Lasix TAB] 40 mg PO 0600,1800 #60 tablet 02/09/18 Unknown Rx Ipratropium/Albuterol Sulfate 1 ampul IH BIDRT #30 ampul.neb 02/09/18 Unknown Rx [DUONEB *Not for PRN Use*] Metoprolol [Lopressor TAB] 25 mg PO BID #60 tablet 02/09/18 Unknown Rx levoFLOXacin [Levaquin] 750 mg PO QDAY #7 tablet 02/09/18 Unknown Rx methylPREDNISolone [Medrol Dose 1 dose PO DAILY #1 pack 02/09/18 Unknown Rx Justin] oxyCODONE /ACETAMINOPHEN [Percocet 1 tab PO Q6H PRN #12 tablet 02/09/18 Unknown Rx 5/325 mg] ALBUTEROL Inhaler (OR & NICU) 2 puff IH QID PRN #1 inhalation 05/13/18 Unknown Rx [Proair] Azithromycin [Zithromax Z-JUSTIN] 0 mg PO DAILY #6 tab 05/13/18 Unknown Rx Benzonatate [Tessalon Perles] 100 mg PO Q8HR #30 capsule 05/13/18 Unknown Rx Azithromycin [Zithromax Z-JUSTIN] 250 mg PO DAILY #6 tablet 02/06/19 Unknown Rx Benzonatate [Tessalon Perles] 100 mg PO Q8HR #10 capsule 02/06/19 Unknown Rx predniSONE [Deltasone] 20 mg PO QDAY #5 tab 02/06/19 Unknown Rx traMADol [Ultram] 50 mg PO Q6HR PRN #12 tablet 02/06/19 Unknown Rx Allergies Allergy/AdvReac Type Severity Reaction Status Date / Time losartan Allergy Unknown Verified 02/09/18 14:22 lisinopril AdvReac Unknown Verified 02/09/18 14:22 ED Review of Systems ROS: Stated complaint: BACK PAIN Other details as noted in HPI Comment: All other systems reviewed and negative ED Past Medical Hx - Past Medical History Previous Medical History?: Yes Hx Hypertension: Yes Hx Arthritis: Yes (OSTEOARTHRITIS) Hx Asthma: Yes Hx COPD: Yes (bronchitis) Additional medical history: ALLERGIES - Surgical History Past Surgical History?: Yes Additional Surgical History: right hip replacement, right femur fx, Right knee surgery - Social History Smoking Status: Current Some Day Smoker Substance Use Type: None - Medications Home Medications: Home Medications Medication Instructions Recorded Confirmed Last Taken Type Thiamine [Vitamin B-1] 100 mg PO QDAY #30 tablet 01/03/18 02/05/18 Unknown Rx Fluticasone [Flonase] 1 spray NS QDAY #1 bottle 01/18/18 02/05/18 Unknown Rx ALBUTEROL NEB's [Proventil 0.083% 2.5 mg IH TID PRN #75 ml 02/09/18 Unknown Rx NEBS] Acetaminophen [Acetaminophen TAB] 650 mg PO Q4H PRN #30 tablet 02/09/18 Unknown Rx Albuterol Sulfate [Ventolin HFA] 2 puff IH Q4H PRN #1 hfa.aer.ad 02/09/18 Unknown Rx Budesonide/Formoterol Fumarate 2 puff IH BID #1 hfa.aer.ad 02/09/18 Unknown Rx [Symbicort 160-4.5 Mcg Inhaler] Furosemide [Lasix TAB] 40 mg PO 0600,1800 #60 tablet 02/09/18 Unknown Rx Ipratropium/Albuterol Sulfate 1 ampul IH BIDRT #30 ampul.neb 02/09/18 Unknown Rx [DUONEB *Not for PRN Use*] Metoprolol [Lopressor TAB] 25 mg PO BID #60 tablet 02/09/18 Unknown Rx levoFLOXacin [Levaquin] 750 mg PO QDAY #7 tablet 02/09/18 Unknown Rx methylPREDNISolone [Medrol Dose 1 dose PO DAILY #1 pack 02/09/18 Unknown Rx Justin] oxyCODONE /ACETAMINOPHEN [Percocet 1 tab PO Q6H PRN #12 tablet 02/09/18 Unknown Rx 5/325 mg] ALBUTEROL Inhaler (OR & NICU) 2 puff IH QID PRN #1 inhalation 05/13/18 Unknown Rx [Proair] Azithromycin [Zithromax Z-JUSTIN] 0 mg PO DAILY #6 tab 05/13/18 Unknown Rx Benzonatate [Tessalon Perles] 100 mg PO Q8HR #30 capsule 05/13/18 Unknown Rx Azithromycin [Zithromax Z-JUSTIN] 250 mg PO DAILY #6 tablet 02/06/19 Unknown Rx Benzonatate [Tessalon Perles] 100 mg PO Q8HR #10 capsule 02/06/19 Unknown Rx predniSONE [Deltasone] 20 mg PO QDAY #5 tab 02/06/19 Unknown Rx traMADol [Ultram] 50 mg PO Q6HR PRN #12 tablet 02/06/19 Unknown Rx ED Physical Exam - General Limitations: No Limitations General appearance: alert, in no apparent distress - Head Head exam: Present: atraumatic, normocephalic - Eye Eye exam: Present: normal appearance, PERRL, EOMI - ENT ENT exam: Present: mucous membranes moist - Neck Neck exam: Present: normal inspection - Respiratory Respiratory exam: Present: normal lung sounds bilaterally. Absent: respiratory distress, wheezes, rales, rhonchi, stridor - Cardiovascular Cardiovascular Exam: Present: regular rate, normal rhythm, normal heart sounds. Absent: systolic murmur, diastolic murmur, rubs, gallop - GI/Abdominal GI/Abdominal exam: Present: soft, normal bowel sounds. Absent: distended, tenderness, guarding, rebound, rigid - Extremities Exam Extremities exam: Present: normal inspection - Back Exam Back exam: Present: normal inspection - Neurological Exam Neurological exam: Present: alert, oriented X3 - Psychiatric Psychiatric exam: Present: normal affect, normal mood - Skin Skin exam: Present: warm, dry, intact, normal color. Absent: rash ED Course Vital Signs 02/06/19 02/06/19 09:17 10:15 Temperature 97.6 F Pulse Rate 69 Respiratory 18 15 Rate Blood Pressure 143/59 O2 Sat by Pulse 97 Oximetry ED Medical Decision Making - Radiology Data [facility] [address] [place] [address] XRay Report Signed Patient: SOCRATES KRAFT MR#: [id number] : 1960 Acct:[id number] Age/Sex: 58 / F ADM Date: 02/06/19 Loc: ED Attending Dr: Ordering Physician: PAIGE ACUNA MD Date of Service: 02/06/19 Procedure(s): XR chest routine 2V Accession Number(s): [id number] cc: PAIGE ACUNA MD Fluoro Time In Minutes: CHEST 2 VIEWS INDICATION / CLINICAL INFORMATION: productive cough. COMPARISON: Chest x-ray on 05/13/2018. FINDINGS: SUPPORT DEVICES: None. HEART / MEDIASTINUM: Stable mild cardiomegaly. LUNGS / PLEURA: Stable mild linear scarring in the right lower lung. No focal consolidation or significant pleural effusion. No pneumothorax. ADDITIONAL FINDINGS: No significant additional findings. IMPRESSION: 1. No acute findings. Stable mild cardiomegaly. Signer Name: Quoc Lorenz MD Signed: 02/06/2019 9:37 AM Workstation Name: [id number] Transcribed By: JOSEPH Dictated By: Quoc Lorenz MD Electronically Authenticated By: uQoc Lorenz MD Signed Date/Time: 02/06/19936 DD/ 5 TD/TT: - Medical Decision Making Patient is a 58-year-old asthmatic female presenting with a harsh cough with some chest discomfort for the last week. The patient to be started on albuterol short course of prednisone as well as Z-Justin. Critical care attestation.: If time is entered above; I have spent that time in minutes in the direct care of this critically ill patient, excluding procedure time. ED Disposition Clinical Impression: Costochondral chest pain, Shortness of breath Acute bronchitis Qualifiers: Bronchitis organism: unspecified organism Qualified Code(s): J20.9 - Acute bronchitis, unspecified Disposition: TO HOME OR SELFCARE Is pt being admited?: No Does the pt Need Aspirin: No Condition: Stable Instructions: Acute Bronchitis (ED), Costochondritis (ED) Referrals: JUAN KUHN MD [Primary Care Provider] - 3-5 Days Time of Disposition: 11:11
== END 2019-02-06 11:26 | disposition home or self-care (01) ==
LOC: ED 09:12
DX: J20.9 Acute bronchitis, unspecified (principal); R07.89 Other chest pain; R06.02 Shortness of breath; I11.0 Hypertensive heart disease with heart failure; I50.9 Heart failure, unspecified; M19.90 Unspecified osteoarthritis, unspecified site; F17.200 Nicotine dependence, unspecified, uncomplicated; J44.9 Chronic obstructive pulmonary disease, unspecified; Z96.641 Presence of right artificial hip joint; Z98.890 Other specified postprocedural states; Z79.899 Other long term (current) drug therapy; Z88.8 Allergy status to other drugs, medicaments and biological substances
CPT/HCPCS: 71046; 99283

== ENCOUNTER 2019-03-16 14:53 | Emergency (ER) | payer OTHER, MEDICAID ==
[2019-03-16 15:04] VITALS: BP 135/59
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
== END 2019-03-16 16:40 | disposition home or self-care (01) ==
LOC: ED 14:53
DX: M54.5 Low back pain (principal); M79.651 Pain in right thigh; M79.652 Pain in left thigh; I10 Essential (primary) hypertension; M19.90 Unspecified osteoarthritis, unspecified site; F32.9 Major depressive disorder, single episode, unspecified; J45.909 Unspecified asthma, uncomplicated; Z96.641 Presence of right artificial hip joint; Z98.890 Other specified postprocedural states; Z79.899 Other long term (current) drug therapy; Z88.8 Allergy status to other drugs, medicaments and biological substances; V43.52XA Car driver injured in collision with other type car in traffic accident, initial encounter; Y93.89 Activity, other specified; Y92.410 Unspecified street and highway as the place of occurrence of the external cause; Y99.8 Other external cause status
CPT/HCPCS: 72100

== ENCOUNTER 2019-06-18 07:48 | Emergency (ER) | payer MEDICAID ==
[2019-06-18 08:20] VITALS: BP 172/83
--- NOTE | 2019-06-18 08:21 | Emergency Department Report ---
- General Chief Complaint: Upper Respiratory Infection Stated Complaint: FLU LIKE SYMPTOMS Time Seen by Provider: 06/18/19 08:14 Source: patient Mode of arrival: Ambulatory Limitations: No Limitations - History of Present Illness Initial Comments: Patient is 58 years old female with history of COPD and hypertension. Patient presented today complaining of cough, productive with greenish sputum for the last 2 days. Patient denied any shortness of breath or chest pain. No fever or chills. MD Complaint: cough, nasal congestion -: days(s) (2) Severity: moderate - Related Data Previous Rx's Medication Instructions Recorded Last Taken Type Thiamine [Vitamin B-1] 100 mg PO QDAY #30 tablet 01/03/18 Unknown Rx Fluticasone [Flonase] 1 spray NS QDAY #1 bottle 01/18/18 Unknown Rx ALBUTEROL NEB's [Proventil 0.083% 2.5 mg IH TID PRN #75 ml 02/09/18 Unknown Rx NEBS] Acetaminophen [Acetaminophen TAB] 650 mg PO Q4H PRN #30 tablet 02/09/18 Unknown Rx Albuterol Sulfate [Ventolin HFA] 2 puff IH Q4H PRN #1 hfa.aer.ad 02/09/18 Unknown Rx Budesonide/Formoterol Fumarate 2 puff IH BID #1 hfa.aer.ad 02/09/18 Unknown Rx [Symbicort 160-4.5 Mcg Inhaler] Furosemide [Lasix TAB] 40 mg PO 0600,1800 #60 tablet 02/09/18 Unknown Rx Ipratropium/Albuterol Sulfate 1 ampul IH BIDRT #30 ampul.neb 02/09/18 Unknown Rx [DUONEB *Not for PRN Use*] Metoprolol [Lopressor TAB] 25 mg PO BID #60 tablet 02/09/18 Unknown Rx levoFLOXacin [Levaquin] 750 mg PO QDAY #7 tablet 02/09/18 Unknown Rx methylPREDNISolone [Medrol Dose 1 dose PO DAILY #1 pack 02/09/18 Unknown Rx Andi] oxyCODONE /ACETAMINOPHEN [Percocet 1 tab PO Q6H PRN #12 tablet 02/09/18 Unknown Rx 5/325 mg] ALBUTEROL Inhaler (OR & NICU) 2 puff IH QID PRN #1 inhalation 05/13/18 Unknown Rx [Proair] Azithromycin [Zithromax Z-ANDI] 0 mg PO DAILY #6 tab 05/13/18 Unknown Rx Benzonatate [Tessalon Perles] 100 mg PO Q8HR #30 capsule 05/13/18 Unknown Rx Azithromycin [Zithromax Z-ANDI] 250 mg PO DAILY #6 tablet 02/06/19 Unknown Rx Benzonatate [Tessalon Perles] 100 mg PO Q8HR #10 capsule 02/06/19 Unknown Rx predniSONE [Deltasone] 20 mg PO QDAY #5 tab 02/06/19 Unknown Rx traMADol [Ultram] 50 mg PO Q6HR PRN #12 tablet 02/06/19 Unknown Rx Cyclobenzaprine HCl [Flexeril 5 MG 5 mg PO TID PRN #10 tab 03/16/19 Unknown Rx TAB] Allergies Allergy/AdvReac Type Severity Reaction Status Date / Time losartan Allergy Unknown Verified 06/18/19 07:59 lisinopril AdvReac Unknown Verified 06/18/19 07:59 ED Review of Systems ROS: Stated complaint: FLU LIKE SYMPTOMS Other details as noted in HPI Comment: All other systems reviewed and negative Constitutional: denies: chills, fever Respiratory: cough. denies: shortness of breath, SOB with exertion, wheezing Cardiovascular: denies: chest pain Gastrointestinal: denies: nausea, vomiting ED Past Medical Hx - Past Medical History Hx Hypertension: Yes Hx Arthritis: Yes (OSTEOARTHRITIS) Hx Psychiatric Treatment: Yes (depression) Hx Asthma: Yes Hx COPD: Yes (bronchitis) Additional medical history: ALLERGIES - Surgical History Additional Surgical History: right hip replacement, right femur fx, Right knee surgery - Social History Smoking Status: Current Every Day Smoker Substance Use Type: Alcohol - Medications Home Medications: Home Medications Medication Instructions Recorded Confirmed Last Taken Type Thiamine [Vitamin B-1] 100 mg PO QDAY #30 tablet 01/03/18 02/05/18 Unknown Rx Fluticasone [Flonase] 1 spray NS QDAY #1 bottle 01/18/18 02/05/18 Unknown Rx ALBUTEROL NEB's [Proventil 0.083% 2.5 mg IH TID PRN #75 ml 02/09/18 Unknown Rx NEBS] Acetaminophen [Acetaminophen TAB] 650 mg PO Q4H PRN #30 tablet 02/09/18 Unknown Rx Albuterol Sulfate [Ventolin HFA] 2 puff IH Q4H PRN #1 hfa.aer.ad 02/09/18 Unknown Rx Budesonide/Formoterol Fumarate 2 puff IH BID #1 hfa.aer.ad 02/09/18 Unknown Rx [Symbicort 160-4.5 Mcg Inhaler] Furosemide [Lasix TAB] 40 mg PO 0600,1800 #60 tablet 02/09/18 Unknown Rx Ipratropium/Albuterol Sulfate 1 ampul IH BIDRT #30 ampul.neb 02/09/18 Unknown Rx [DUONEB *Not for PRN Use*] Metoprolol [Lopressor TAB] 25 mg PO BID #60 tablet 02/09/18 Unknown Rx levoFLOXacin [Levaquin] 750 mg PO QDAY #7 tablet 02/09/18 Unknown Rx methylPREDNISolone [Medrol Dose 1 dose PO DAILY #1 pack 02/09/18 Unknown Rx Andi] oxyCODONE /ACETAMINOPHEN [Percocet 1 tab PO Q6H PRN #12 tablet 02/09/18 Unknown Rx 5/325 mg] ALBUTEROL Inhaler (OR & NICU) 2 puff IH QID PRN #1 inhalation 05/13/18 Unknown Rx [Proair] Azithromycin [Zithromax Z-ANDI] 0 mg PO DAILY #6 tab 05/13/18 Unknown Rx Benzonatate [Tessalon Perles] 100 mg PO Q8HR #30 capsule 05/13/18 Unknown Rx Azithromycin [Zithromax Z-ANDI] 250 mg PO DAILY #6 tablet 02/06/19 Unknown Rx Benzonatate [Tessalon Perles] 100 mg PO Q8HR #10 capsule 02/06/19 Unknown Rx predniSONE [Deltasone] 20 mg PO QDAY #5 tab 02/06/19 Unknown Rx traMADol [Ultram] 50 mg PO Q6HR PRN #12 tablet 02/06/19 Unknown Rx Cyclobenzaprine HCl [Flexeril 5 MG 5 mg PO TID PRN #10 tab 03/16/19 Unknown Rx TAB] ED Physical Exam - General Limitations: No Limitations General appearance: alert, in no apparent distress - Head Head exam: Present: atraumatic, normocephalic - ENT ENT exam: Present: normal exam, normal orophraynx, mucous membranes moist - Neck Neck exam: Present: normal inspection - Respiratory Respiratory exam: Present: normal lung sounds bilaterally. Absent: respiratory distress, wheezes, rales, rhonchi, stridor, accessory muscle use, decreased breath sounds, prolonged expiratory - Cardiovascular Cardiovascular Exam: Present: regular rate, normal rhythm, normal heart sounds - Extremities Exam Extremities exam: Present: normal inspection - Neurological Exam Neurological exam: Present: alert, oriented X3, CN II-XII intact, normal gait, reflexes normal ED Course Vital Signs 06/18/19 07:58 Temperature 97.7 F Pulse Rate 89 Respiratory 16 Rate Blood Pressure 172/83 O2 Sat by Pulse 94 Oximetry Critical care attestation.: If time is entered above; I have spent that time in minutes in the direct care of this critically ill patient, excluding procedure time. ED Disposition Clinical Impression: Acute bronchitis Disposition: - TO HOME OR SELFCARE Is pt being admited?: No Condition: Stable Instructions: Acute Bronchitis (ED) Referrals: [facility] [Provider Group] - 3-5 Days
== END 2019-06-18 08:27 | disposition home or self-care (01) ==
LOC: ED 07:48
DX: J20.9 Acute bronchitis, unspecified (principal); I10 Essential (primary) hypertension; M19.90 Unspecified osteoarthritis, unspecified site; F32.9 Major depressive disorder, single episode, unspecified; J44.9 Chronic obstructive pulmonary disease, unspecified; F17.200 Nicotine dependence, unspecified, uncomplicated; Z79.899 Other long term (current) drug therapy; Z98.890 Other specified postprocedural states; Z88.8 Allergy status to other drugs, medicaments and biological substances

== ENCOUNTER 2019-07-25 16:04 | Emergency (ER) | payer MEDICAID ==
[2019-07-25 17:50] VITALS: BP 147/83
--- NOTE | 2019-07-25 17:53 | Event Note ---
ED Screening Note Date of service: 07/25/19 Time: 17:49 ED Screening Note: 58 yo female c/o productive cough chills back pain, sob x 2 days. Current cigarette smoker. Denies fever and chest pain This initial assessment/diagnostic orders/clinical plan/treatment(s) is/are subject to change based on patients health status, clinical progression and re- assessment by fellow clinical providers in the ED. Further treatment and workup at subsequent clinical providers discretion. Patient/guardian urged not to elope from the ED as their condition may be serious if not clinically assessed and managed. Initial orders include: chest xray
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
[2019-07-25] MEDS ORDERED: predniSONE 20 MG TAB PO ONE (20:07)
[2019-07-25] MEDS ORDERED: guaiFENesin 100 MG/5 ML ORAL LIQD PO ONE (20:07)
--- NOTE | 2019-07-25 20:23 | Emergency Department Report ---
Minor Respiratory - HPI Chief Complaint: Upper Respiratory Infection Stated Complaint: LUNGS HURT/BODY ACHE Time Seen by Provider: 07/25/19 20:04 Duration: 5 Days Pain Location: Chest Severity: mild Minor Respiratory: Yes Able to Tolerate Fluids, Yes Cough, No Rhinorrhea, No Sore Throat, No Ear Pain, No Sick Contacts, No Hemoptysis, No Chest Pain, No Shortness of Breath, No Fever Other History: Patient is a 58-year-old female with a history of COPD presents complaining of clear intermittent productive cough for the past week. Patient states that she had pneumonia last year and is worried that she has pneumonia again. Patient is also complaining of body aches. She denies fevers/chills/nausea vomiting and abdominal pain. Patient states she has an albuterol nebulizer machine at home but is out of albuterol. ED Review of Systems ROS: Stated complaint: LUNGS HURT/BODY ACHE Other details as noted in HPI Comment: All other systems reviewed and negative ED Past Medical Hx - Past Medical History Previous Medical History?: Yes Hx Hypertension: Yes Hx Arthritis: Yes (OSTEOARTHRITIS) Hx Psychiatric Treatment: Yes (depression) Hx Asthma: Yes Hx COPD: Yes (bronchitis) Additional medical history: ALLERGIES - Surgical History Past Surgical History?: Yes Additional Surgical History: right hip replacement, right femur fx, Right knee surgery - Social History Smoking Status: Current Every Day Smoker Substance Use Type: None - Medications Home Medications: Home Medications Medication Instructions Recorded Confirmed Last Taken Type Thiamine [Vitamin B-1] 100 mg PO QDAY #30 tablet 01/03/18 02/05/18 Unknown Rx Fluticasone [Flonase] 1 spray NS QDAY #1 bottle 01/18/18 02/05/18 Unknown Rx ALBUTEROL NEB's [Proventil 0.083% 2.5 mg IH TID PRN #75 ml 02/09/18 Unknown Rx NEBS] Albuterol Sulfate [Ventolin HFA] 2 puff IH Q4H PRN #1 hfa.aer.ad 02/09/18 Unknown Rx Budesonide/Formoterol Fumarate 2 puff IH BID #1 hfa.aer.ad 02/09/18 Unknown Rx [Symbicort 160-4.5 Mcg Inhaler] Furosemide [Lasix TAB] 40 mg PO 0600,1800 #60 tablet 02/09/18 Unknown Rx Ipratropium/Albuterol Sulfate 1 ampul IH BIDRT #30 ampul.neb 02/09/18 Unknown Rx [DUONEB *Not for PRN Use*] Metoprolol [Lopressor TAB] 25 mg PO BID #60 tablet 02/09/18 Unknown Rx levoFLOXacin [Levaquin] 750 mg PO QDAY #7 tablet 02/09/18 Unknown Rx methylPREDNISolone [Medrol Dose 1 dose PO DAILY #1 pack 02/09/18 Unknown Rx Justin] oxyCODONE /ACETAMINOPHEN [Percocet 1 tab PO Q6H PRN #12 tablet 02/09/18 Unknown Rx 5/325 mg] ALBUTEROL Inhaler (OR & NICU) 2 puff IH QID PRN #1 inhalation 05/13/18 Unknown Rx [Proair] Azithromycin [Zithromax Z-JUSTIN] 0 mg PO DAILY #6 tab 05/13/18 Unknown Rx Benzonatate [Tessalon Perles] 100 mg PO Q8HR #30 capsule 05/13/18 Unknown Rx Azithromycin [Zithromax Z-JUSTIN] 250 mg PO DAILY #6 tablet 02/06/19 Unknown Rx traMADoL [Ultram] 50 mg PO Q6HR PRN #12 tablet 02/06/19 Unknown Rx Cyclobenzaprine HCl [Flexeril 5 MG 5 mg PO TID PRN #10 tab 03/16/19 Unknown Rx TAB] Prednisone [predniSONE 10 mg 10 mg PO .TAPER #1 tab.ds.pk 06/18/19 Unknown Rx (6-Day Pack, 21 Tabs)] levoFLOXacin [Levaquin TAB] 500 mg PO QDAY #7 tablet 06/18/19 Unknown Rx Acetaminophen [Acetaminophen TAB] 650 mg PO Q4H PRN #30 tablet 07/25/19 Unknown Rx Benzonatate [Tessalon Perles] 100 mg PO Q8HR #10 capsule 07/25/19 Unknown Rx predniSONE [Deltasone] 20 mg PO QDAY #5 tab 07/25/19 Unknown Rx Minor Respiratory Exam - Exam General: Vital signs noted. No distress. Alert and acting appropriately. HEENT: Yes Moist Mucous Membranes, No Pharyngeal Erythema, No Pharyngeal Exudates, No Rhinorrhea, No Conjuctival Injection, No Frontal Tenderness, No Maxillary Tenderness Ear: Neither TM Bulge, Neither TM Erythema, Neither EAC Pain, Neither EAC Discharge Neck: Yes Supple, No Adenopathy Lungs: Yes Good Air Exchange, No Wheezes, No Ronchi, No Stridor, No Cough, No Labored Respirations, No Retractions, No Use of Accessory Muscles, No Other Abnormal Lung Sounds Heart: Yes Regular, No Murmur Abdomen: Yes Normal Bowel Sounds, No Tenderness, No Peritoneal Signs Skin: No Rash, No Edema Neurologic: Alert and oriented, no deficits. Musculoskeletal: Unremarkable. ED Course Vital Signs 07/25/19 17:49 Temperature 98.1 F Pulse Rate 84 Respiratory 16 Rate Blood Pressure 147/83 O2 Sat by Pulse 100 Oximetry ED Medical Decision Making - Radiology Data Radiology results: report reviewed, image reviewed CHEST 2 VIEWS INDICATION / CLINICAL INFORMATION: cough sob. COMPARISON: 02/06/2019 FINDINGS: SUPPORT DEVICES: None. HEART / MEDIASTINUM: Stable. Enlargement of the cardiac mediastinal silhouette. LUNGS / PLEURA: No significant pulmonary or pleural abnormality. No pneumothorax. ADDITIONAL FINDINGS: No significant additional findings. IMPRESSION: 1. Stable cardiomegaly with no acute disease. Signer Name: Rafiq Howard MD Signed: 07/25/2019 6:26 PM Workstation Name: [id number] Transcribed By: NADIYA Dictated By: Rafiq Howard MD Electronically Authenticated By: Rafiq Howard MD Signed Date/Time: 07/25/19 182 - Medical Decision Making 68-year-old female presents with bronchitis Chest x-ray shows no acute findings. Discussed with patient follow-up with primary care physician. Vital signs are normal patient is in no acute distress or shows no respiratory distress while in ED. Critical care attestation.: If time is entered above; I have spent that time in minutes in the direct care of this critically ill patient, excluding procedure time. ED Disposition Clinical Impression: Bronchitis Disposition: DC-01 TO HOME OR SELFCARE Is pt being admited?: No Does the pt Need Aspirin: No Condition: Stable Instructions: Chronic Bronchitis (ED) Additional Instructions: Make sure to follow up with the primary care physician as discussed. Take all your medications as you've been prescribed. If you have any worsening symptoms or develop new symptoms please return to ED immediately. Prescriptions: Acetaminophen [Acetaminophen TAB] 650 mg PO Q4H PRN #30 tablet PRN Reason: Pain MILD(1-3)/Fever >100.5/MOSCOSO predniSONE [Deltasone] 20 mg PO QDAY #5 tab Benzonatate [Tessalon Perles] 100 mg PO Q8HR #10 capsule Referrals: LUISA ACUNA MD [Primary Care Provider] - 3-5 Days Forms: Accompanied Note, Work/School Release Form(ED) Time of Disposition: 20:41
== END 2019-07-25 20:45 | disposition home or self-care (01) ==
LOC: ED 16:04
DX: J40 Bronchitis, not specified as acute or chronic (principal); I10 Essential (primary) hypertension; M19.90 Unspecified osteoarthritis, unspecified site; F32.9 Major depressive disorder, single episode, unspecified; F17.200 Nicotine dependence, unspecified, uncomplicated; Z98.890 Other specified postprocedural states; Z79.899 Other long term (current) drug therapy; Z88.8 Allergy status to other drugs, medicaments and biological substances
CPT/HCPCS: 71046; 99283; J7512

== ENCOUNTER 2019-11-12 10:35 | Emergency (ER) | payer MEDICAID ==
[2019-11-12 10:48] VITALS: BP 151/89
[2019-11-12] MEDS ORDERED: DOXYCYCLINE 100 MG TAB PO ONE (11:17)
[2019-11-12] MEDS ORDERED: ACETAMINOPHEN 500 MG TAB PO ONE (11:17)
[2019-11-12] MEDS ORDERED: predniSONE 20 MG TAB PO ONE (11:17)
--- NOTE | 2019-11-12 11:24 | Emergency Department Report ---
ED Chest Pain HPI - General Chief Complaint: Chest Pain Stated Complaint: CHEST TIGHT Time Seen by Provider: 11/12/19 11:17 Source: patient Mode of arrival: Ambulatory Limitations: No Limitations - History of Present Illness Initial Comments: Mrs. Armijo is a 59-year-old female with history of congestive heart failure, asthma, COPD, tobacco abuse, osteoarthritis, who presents with chest soreness. Worse with movement. She feels congestion in her chest. Chest soreness is mild constant. No change with inspiration. No change with cough. Denies fever. Patient does not have cough. Only mild shortness of breath and wheezing. MD Complaint: chest pain -: Gradual Onset: during rest Pain Radiation: none Severity: mild Quality: other (Soreness) Consistency: constant Improves With: nothing Worsens With: nothing re: dyspnea - Related Data Previous Rx's Medication Instructions Recorded Last Taken Type Thiamine [Vitamin B-1] 100 mg PO QDAY #30 tablet 01/03/18 Unknown Rx Fluticasone [Flonase] 1 spray NS QDAY #1 bottle 01/18/18 Unknown Rx ALBUTEROL NEB's [Proventil 0.083% 2.5 mg IH TID PRN #75 ml 02/09/18 Unknown Rx NEBS] Albuterol Sulfate [Ventolin HFA] 2 puff IH Q4H PRN #1 hfa.aer.ad 02/09/18 Unknown Rx Budesonide/Formoterol Fumarate 2 puff IH BID #1 hfa.aer.ad 02/09/18 Unknown Rx [Symbicort 160-4.5 Mcg Inhaler] Furosemide [Lasix TAB] 40 mg PO 0600,1800 #60 tablet 02/09/18 Unknown Rx Ipratropium/Albuterol Sulfate 1 ampul IH BIDRT #30 ampul.neb 02/09/18 Unknown Rx [DUONEB *Not for PRN Use*] Metoprolol [Lopressor TAB] 25 mg PO BID #60 tablet 02/09/18 Unknown Rx levoFLOXacin [Levaquin] 750 mg PO QDAY #7 tablet 02/09/18 Unknown Rx methylPREDNISolone [Medrol Dose 1 dose PO DAILY #1 pack 02/09/18 Unknown Rx Anid] oxyCODONE /ACETAMINOPHEN [Percocet 1 tab PO Q6H PRN #12 tablet 02/09/18 Unknown Rx 5/325 mg] Albuterol INH(or & Nicu Only) 2 puff IH QID PRN #1 inhalation 05/13/18 Unknown Rx [Proair] Azithromycin [Zithromax Z-ANDI] 0 mg PO DAILY #6 tab 05/13/18 Unknown Rx Benzonatate [Tessalon Perles] 100 mg PO Q8HR #30 capsule 05/13/18 Unknown Rx Azithromycin [Zithromax Z-ANDI] 250 mg PO DAILY #6 tablet 02/06/19 Unknown Rx traMADoL [Ultram] 50 mg PO Q6HR PRN #12 tablet 02/06/19 Unknown Rx Cyclobenzaprine HCl [Flexeril 5 MG 5 mg PO TID PRN #10 tab 03/16/19 Unknown Rx TAB] Prednisone [predniSONE 10 mg 10 mg PO .TAPER #1 tab.ds.pk 06/18/19 Unknown Rx (6-Day Pack, 21 Tabs)] levoFLOXacin [Levaquin TAB] 500 mg PO QDAY #7 tablet 06/18/19 Unknown Rx Acetaminophen [Acetaminophen TAB] 650 mg PO Q4H PRN #30 tablet 07/25/19 Unknown Rx Benzonatate [Tessalon Perles] 100 mg PO Q8HR #10 capsule 07/25/19 Unknown Rx predniSONE [Deltasone] 20 mg PO QDAY #5 tab 07/25/19 Unknown Rx Albuterol Sulfate [Proventil Hfa] 2 puff IH Q4HR PRN #1 hfa.aer.ad 10/27/19 Unknown Rx Doxycycline Hyclate [Doxycycline 100 mg PO Q12HR 7 Days #14 tab 11/12/19 Unknown Rx Hyclate TAB] Prednisone [predniSONE 10 mg 10 mg PO .TAPER #1 tab.ds.pk 11/12/19 Unknown Rx (6-Day Pack, 21 Tabs)] Allergies Allergy/AdvReac Type Severity Reaction Status Date / Time losartan Allergy Unknown Verified 07/25/19 16:07 lisinopril AdvReac Unknown Verified 07/25/19 16:07 Heart Score - HEART Score History: Slightly suspicious EKG: Non-specific Age: 45-65 Risk factors: > 3 risk factors or hx of atherosclerotic disease Troponin: < normal limit HEART Score: 4 ED Review of Systems ROS: Stated complaint: CHEST TIGHT Other details as noted in HPI Comment: All other systems reviewed and negative Constitutional: denies: fever, malaise Respiratory: shortness of breath, wheezing. denies: cough Gastrointestinal: denies: abdominal pain, nausea, vomiting ED Past Medical Hx - Past Medical History Previous Medical History?: Yes Hx Hypertension: Yes Hx Congestive Heart Failure: Yes Hx Arthritis: Yes (OSTEOARTHRITIS) Hx Psychiatric Treatment: Yes (depression) Hx Asthma: Yes Hx COPD: Yes (bronchitis) Additional medical history: ALLERGIES. Heart failure, EF 25%, Life Vest - Surgical History Past Surgical History?: Yes Additional Surgical History: right hip replacement, right femur fx, Right knee surgery - Social History Smoking Status: Current Every Day Smoker - Medications Home Medications: Home Medications Medication Instructions Recorded Confirmed Last Taken Type Thiamine [Vitamin B-1] 100 mg PO QDAY #30 tablet 01/03/18 02/05/18 Unknown Rx Fluticasone [Flonase] 1 spray NS QDAY #1 bottle 01/18/18 02/05/18 Unknown Rx ALBUTEROL NEB's [Proventil 0.083% 2.5 mg IH TID PRN #75 ml 02/09/18 Unknown Rx NEBS] Albuterol Sulfate [Ventolin HFA] 2 puff IH Q4H PRN #1 hfa.aer.ad 02/09/18 Unknown Rx Budesonide/Formoterol Fumarate 2 puff IH BID #1 hfa.aer.ad 02/09/18 Unknown Rx [Symbicort 160-4.5 Mcg Inhaler] Furosemide [Lasix TAB] 40 mg PO 0600,1800 #60 tablet 02/09/18 Unknown Rx Ipratropium/Albuterol Sulfate 1 ampul IH BIDRT #30 ampul.neb 02/09/18 Unknown Rx [DUONEB *Not for PRN Use*] Metoprolol [Lopressor TAB] 25 mg PO BID #60 tablet 02/09/18 Unknown Rx levoFLOXacin [Levaquin] 750 mg PO QDAY #7 tablet 02/09/18 Unknown Rx methylPREDNISolone [Medrol Dose 1 dose PO DAILY #1 pack 02/09/18 Unknown Rx Andi] oxyCODONE /ACETAMINOPHEN [Percocet 1 tab PO Q6H PRN #12 tablet 02/09/18 Unknown Rx 5/325 mg] Albuterol INH(or & Nicu Only) 2 puff IH QID PRN #1 inhalation 05/13/18 Unknown Rx [Proair] Azithromycin [Zithromax Z-ANDI] 0 mg PO DAILY #6 tab 05/13/18 Unknown Rx Benzonatate [Tessalon Perles] 100 mg PO Q8HR #30 capsule 05/13/18 Unknown Rx Azithromycin [Zithromax Z-ANDI] 250 mg PO DAILY #6 tablet 02/06/19 Unknown Rx traMADoL [Ultram] 50 mg PO Q6HR PRN #12 tablet 02/06/19 Unknown Rx Cyclobenzaprine HCl [Flexeril 5 MG 5 mg PO TID PRN #10 tab 03/16/19 Unknown Rx TAB] Prednisone [predniSONE 10 mg 10 mg PO .TAPER #1 tab.ds.pk 06/18/19 Unknown Rx (6-Day Pack, 21 Tabs)] levoFLOXacin [Levaquin TAB] 500 mg PO QDAY #7 tablet 06/18/19 Unknown Rx Acetaminophen [Acetaminophen TAB] 650 mg PO Q4H PRN #30 tablet 07/25/19 Unknown Rx Benzonatate [Tessalon Perles] 100 mg PO Q8HR #10 capsule 07/25/19 Unknown Rx predniSONE [Deltasone] 20 mg PO QDAY #5 tab 07/25/19 Unknown Rx Albuterol Sulfate [Proventil Hfa] 2 puff IH Q4HR PRN #1 hfa.aer.ad 10/27/19 Unknown Rx Doxycycline Hyclate [Doxycycline 100 mg PO Q12HR 7 Days #14 tab 11/12/19 Unknown Rx Hyclate TAB] Prednisone [predniSONE 10 mg 10 mg PO .TAPER #1 tab.ds.pk 11/12/19 Unknown Rx (6-Day Pack, 21 Tabs)] ED Physical Exam - General Limitations: No Limitations General appearance: alert, in no apparent distress, other (Patient walked to treatment room briskly without effort or discomfort) - Head Head exam: Present: atraumatic, normocephalic - Eye Eye exam: Present: normal appearance - ENT ENT exam: Present: mucous membranes moist - Neck Neck exam: Present: normal inspection, full ROM - Respiratory Respiratory exam: Present: normal lung sounds bilaterally. Absent: respiratory distress, wheezes, rales, rhonchi, chest wall tenderness, accessory muscle use - Cardiovascular Cardiovascular Exam: Present: regular rate, normal rhythm, normal heart sounds. Absent: systolic murmur, diastolic murmur, rubs, gallop - GI/Abdominal GI/Abdominal exam: Present: soft, normal bowel sounds. Absent: distended, tenderness, guarding, rebound - Extremities Exam Extremities exam: Present: normal inspection - Neurological Exam Neurological exam: Present: alert, oriented X3 - Psychiatric Psychiatric exam: Present: normal affect, normal mood - Skin Skin exam: Present: warm, dry, intact, normal color. Absent: rash ED Course Vital Signs 11/12/19 10:44 Temperature 97.7 F Pulse Rate 74 Respiratory 16 Rate Blood Pressure 151/89 [Right] O2 Sat by Pulse 97 Oximetry ED Medical Decision Making - Lab Data Result diagrams: 11/12/19 11:16 11/12/19 11:16 - EKG Data 11/12/19 11:21 EKG obtained 1048 Normal sinus rhythm rate 65 bpm normal axis normal intervals no ST elevation positive LVH - Radiology Data Radiology results: report reviewed Chest radiographs 2 view according to radiology report, no acute abnormality of the chest, stable cardiomegaly - Medical Decision Making Ms. Armijo presents with COPD exacerbation. Chest soreness atypical for ACS. I do not suspect pulmonary embolism. No indication of pneumonia. Patient will be prescribed prednisone taper doxycycline. CBC chemistry within normal limits. Chest x-ray without acute findings. Critical care attestation.: If time is entered above; I have spent that time in minutes in the direct care of this critically ill patient, excluding procedure time. ED Disposition Clinical Impression: COPD with acute exacerbation, Chest pain Disposition: - TO HOME OR SELFCARE Is pt being admited?: No Does the pt Need Aspirin: No Condition: Stable Instructions: Chest Pain (ED), Chronic Obstructive Pulmonary Disease (ED) Prescriptions: Doxycycline Hyclate [Doxycycline Hyclate TAB] 100 mg PO Q12HR 7 Days #14 tab Prednisone [predniSONE 10 mg (6-Day Pack, 21 Tabs)] 10 mg PO .TAPER #1 tab.ds.pk Referrals: PRIMARY CARE,MD [Primary Care Provider] - 3-5 Days
--- NOTE | 2019-11-12 11:40 | XRay Report ---
CHEST 2 VIEWS INDICATION / CLINICAL INFORMATION: chest tightness. COMPARISON: One view of the chest from 10/27/2019. FINDINGS: SUPPORT DEVICES: None. HEART / MEDIASTINUM: Stable. LUNGS / PLEURA: No significant pulmonary or pleural abnormality. No pneumothorax. ADDITIONAL FINDINGS: No significant additional findings. IMPRESSION: 1. No acute abnormality of the chest. 2. Stable cardiomegaly. Signer Name: Mario Alberto Norton MD Signed: 11/12/2019 11:36 AM Workstation Name: [id number]
[2019-11-12 11:52] LABS: Basophils # (Auto) 0.1 K/mm3 (0.0-0.1); Basophils % (Auto) 1.1 % (0.0-1.8); Eosinophils # (Auto) 0.1 K/mm3 (0.0-0.4); Eosinophils % (Auto) 1.9 % (0.0-4.3); Hematocrit 41.2 % (30.3-42.9); Hemoglobin 13.2 gm/dl (10.1-14.3); Lymphocytes # (Auto) 1.8 K/mm3 (1.2-5.4); Mean Corpuscular HGB Conc 32 % (30-34); Mean Corpuscular Volume 81 fl (79-97); Monocytes # (Auto) 0.4 K/mm3 (0.0-0.8); Monocytes % (Auto) 6.1 % (0.0-7.3); Platelet Count 279 K/mm3 (140-440); Red Cell Distribution Width 17.5 % (13.2-15.2)
[2019-11-12 12:15] LABS: Alanine Aminotransferase 11 units/L (7-56); Albumin 4.1 g/dL (3.9-5); BUN/Creatinine Ratio 15; Blood Urea Nitrogen 12 mg/dL (7-17); Calcium 10.1 mg/dL (8.4-10.2); Hemolysis Index 3
== END 2019-11-12 13:14 | disposition home or self-care (01) ==
LOC: ED 10:35
DX: J44.1 Chronic obstructive pulmonary disease with (acute) exacerbation (principal); I11.0 Hypertensive heart disease with heart failure; I50.9 Heart failure, unspecified; M19.90 Unspecified osteoarthritis, unspecified site; F32.89 Other specified depressive episodes; F17.200 Nicotine dependence, unspecified, uncomplicated; Z98.890 Other specified postprocedural states; Z79.899 Other long term (current) drug therapy
CPT/HCPCS: 36415; 71046; 80053; 85025; 93005; 93010; 99284; J7512

== ENCOUNTER 2020-03-16 06:50 | Emergency (ER) | payer MEDICAID ==
[2020-03-16 07:16] VITALS: BP 159/94
[2020-03-16] MEDS ORDERED: ASPIRIN 325 MG TAB PO ONE (07:16)
[2020-03-16] MEDS ORDERED: IPRATROPIUM/ALBUTEROL SULFATE 3 ML AMPUL.NEB IH ONE ×2 (07:56→10:05)
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
--- NOTE | 2020-03-16 08:08 | XRay Report ---
CHEST 1 VIEW INDICATION: Chest Pain. COMPARISON: 11/12/2019 FINDINGS: Support devices: None. Heart: Stable cardiomegaly. Lungs/Pleura: No acute air space or interstitial disease. Additional findings: None. IMPRESSION: Stable cardiomegaly. Signer Name: Nick Winchester MD Signed: 03/16/2020 8:04 AM Workstation Name: [id number]
[2020-03-16 08:18] LABS: Basophils % (Auto) 0.5 % (0.0-1.8); Eosinophils # (Auto) 0.1 K/mm3 (0.0-0.4); Eosinophils % (Auto) 0.6 % (0.0-4.3); Hematocrit 38.4 % (30.3-42.9); Hemoglobin 12.6 gm/dl (10.1-14.3); Lymphocytes # (Auto) 1.2 K/mm3 (1.2-5.4); Lymphocytes % (Auto) 15.2 % (13.4-35.0); Mean Corpuscular HGB Conc 33 % (30-34); Mean Corpuscular Volume 85 fl (79-97); Monocytes # (Auto) 0.4 K/mm3 (0.0-0.8); Monocytes % (Auto) 5.5 % (0.0-7.3); Platelet Count 240 K/mm3 (140-440); Red Blood Count 4.51 M/mm3 (3.65-5.03); Red Cell Distribution Width 16.7 % (13.2-15.2)
[2020-03-16 08:40] LABS: INR 1.07 (0.87-1.13)
[2020-03-16 08:42] LABS: Creatine Kinase MB 2.9 ng/mL (0.0-4.0)
[2020-03-16 08:43] LABS: Partial Thromboplastin Time 28.2 Sec. (24.2-36.6)
[2020-03-16 08:47] LABS: BUN/Creatinine Ratio 14; Blood Urea Nitrogen 14 mg/dL (7-17); Calcium 8.5 mg/dL (8.4-10.2); Hemolysis Index 12
[2020-03-16 08:47] LABS: Alanine Aminotransferase 31 units/L (7-56); Albumin 3.4 g/dL (3.9-5)
[2020-03-16 08:54] LABS: Bilirubin,Direct < 0.2 mg/dL (0-0.2)
[2020-03-16] MEDS ORDERED: FUROSEMIDE 40 MG/4 ML INJ IV ONE (08:58)
[2020-03-16] MEDS ORDERED: POTASSIUM CHLORIDE ER 20 MEQ TAB PO ONE (09:00)
--- NOTE | 2020-03-19 08:17 | Vascular Lab Report ---
DUPLEX DOPPLER LOWER EXTREMITY VEINS, LEFT INDICATION: swelling. TECHNIQUE: Duplex doppler imaging was performed through the veins of the left lower extremity using venous compr ession and other maneuvers. COMPARISON: None available. FINDINGS: Common femoral vein: Negative. Superficial femoral vein: Negative. Popliteal vein: Negative. Calf veins: Negative. Additional findings: None. IMPRESSION: Negative for DVT. Signer Name: Nick Winchester MD Signed: 03/16/2020 9:15 AM Workstation Name: [id number]
== END 2020-03-16 12:29 | disposition home or self-care (01) ==
LOC: ED 06:50
DX: J44.1 Chronic obstructive pulmonary disease with (acute) exacerbation (principal); I11.9 Hypertensive heart disease without heart failure; I50.9 Heart failure, unspecified; I43 Cardiomyopathy in diseases classified elsewhere; M19.91 Primary osteoarthritis, unspecified site; F32.9 Major depressive disorder, single episode, unspecified; F17.200 Nicotine dependence, unspecified, uncomplicated; Z98.890 Other specified postprocedural states; Z79.2 Long term (current) use of antibiotics; Z79.899 Other long term (current) drug therapy; Z88.8 Allergy status to other drugs, medicaments and biological substances
CPT/HCPCS: 36415; 71045; 80048; 80076; 82550; 82553; 83735; 83880; 84484; 85025; 85610; 85730; 93005; 93971; 94640; 96374; 99284; J1940; 94644

== ENCOUNTER 2020-06-01 11:45 | Emergency (ER) | payer MEDICAID ==
[2020-06-01 12:09] VITALS: BP 111/64
--- NOTE | 2020-06-01 12:46 | XRay Report ---
XR chest routine 2V INDICATION / CLINICAL INFORMATION: Cough with green mucus. Poss pnemonia COMPARISON: 03/16/2020 FINDINGS: SUPPORT DEVICES: None. HEART / MEDIASTINUM: Prominent cardiac silhouette is unchanged. LUNGS / PLEURA: Lungs are clear. Costophrenic sulci are sharp. No pneumothorax. ADDITIONAL FINDINGS: No significant additional findings. IMPRESSION: 1. Cardiomegaly which is unchanged. No acute findings. Signer Name: Mj So MD Signed: 06/01/2020 12:41 PM Workstation Name: [id number]
== END 2020-06-01 12:10 | disposition left against medical advice (07) ==
LOC: ED 11:45
DX: R05 Cough (principal); Z53.21 Procedure and treatment not carried out due to patient leaving prior to being seen by health care provider
CPT/HCPCS: 71046

== ENCOUNTER 2020-06-02 13:46 | Emergency (ER) | payer MEDICAID ==
[2020-06-02 14:05] VITALS: BP 119/65
--- NOTE | 2020-06-02 14:09 | Emergency Department Report ---
Minor Respiratory - HPI Chief Complaint: Upper Respiratory Infection Stated Complaint: HEAVY COUGH/WITH MUCUS Time Seen by Provider: 06/02/20 14:03 Duration: 3 Days Minor Respiratory: Yes Able to Tolerate Fluids, Yes Cough (Productive cough), Yes Fever, No Rhinorrhea, No Sore Throat, No Ear Pain, No Chest Pain, No Shortness of Breath Other History: The patient was evaluated in the emergency department for symptoms described in the history of present illness. He/she was evaluated in the context of the global COVID-19 pandemic, which necessitated consideration that the patient might be at risk for infection with the virus that causes COVID-19. Institutional protocols and algorithms that pertain to the evaluation of patients at risk for COVID-19 are in a state of rapid change based on i nformation released by regulatory bodies including the CDC and federal and state organizations. These policies and algorithms were followed during the patient's care in the emergency department. Please note that these policies, procedures and recommendations changed on a rapid basis. 59-year-old -[place] female presents to the emergency room for 3-day history of cough. Patient does admit that she smokes cigarettes. She states that she was here yesterday but did not stay for her results. Patient denies any fever chills no nausea no vomiting. She states she has some slight shortness of breath and slight chest pain. She reports she has a history of CHF COPD and asthma. Patient states that she wears a LifeVest. Patient has an allergy to lisinopril. Patient reports she is on carvedilol losartan Lasix sorbic acid and glipizide. ED Review of Systems ROS: Stated complaint: HEAVY COUGH/WITH MUCUS Other details as noted in HPI Comment: All other systems reviewed and negative ED Past Medical Hx - Past Medical History Previous Medical History?: Yes Hx Hypertension: Yes Hx Congestive Heart Failure: Yes Hx Arthritis: Yes (OSTEOARTHRITIS) Hx Psychiatric Treatment: Yes (depression) Hx Asthma: Yes Hx COPD: Yes (bronchitis) Additional medical history: ALLERGIES. Heart failure, EF 25%, Life Vest - Surgical History Past Surgical History?: Yes Additional Surgical History: right hip replacement, right femur fx, Right knee surgery - Social History Smoking Status: Current Every Day Smoker Substance Use Type: Alcohol - Medications Home Medications: Home Medications Medication Instructions Recorded Confirmed Last Taken Type Thiamine [Vitamin B-1] 100 mg PO QDAY #30 tablet 01/03/18 02/05/18 Unknown Rx Fluticasone [Flonase] 1 spray NS QDAY #1 bottle 01/18/18 02/05/18 Unknown Rx ALBUTEROL NEB's [Proventil 0.083% 2.5 mg IH TID PRN #75 ml 02/09/18 Unknown Rx NEBS] Albuterol Sulfate [Ventolin HFA] 2 puff IH Q4H PRN #1 hfa.aer.ad 02/09/18 Unknown Rx Budesonide/Formoterol Fumarate 2 puff IH BID #1 hfa.aer.ad 02/09/18 Unknown Rx [Symbicort 160-4.5 Mcg Inhaler] Furosemide [Lasix TAB] 40 mg PO 0600,1800 #60 tablet 02/09/18 Unknown Rx Ipratropium/Albuterol Sulfate 1 ampul IH BIDRT #30 ampul.neb 02/09/18 Unknown Rx [DUONEB *Not for PRN Use*] Metoprolol [Lopressor TAB] 25 mg PO BID #60 tablet 02/09/18 Unknown Rx levoFLOXacin [Levaquin] 750 mg PO QDAY #7 tablet 02/09/18 Unknown Rx methylPREDNISolone [Medrol Dose 1 dose PO DAILY #1 pack 02/09/18 Unknown Rx Andi] oxyCODONE /ACETAMINOPHEN [Percocet 1 tab PO Q6H PRN #12 tablet 02/09/18 Unknown Rx 5/325 mg] Albuterol Mdi (or & Nicu Only) 2 puff IH QID PRN #1 inhalation 05/13/18 Unknown Rx [Proair] Azithromycin [Zithromax Z-ANDI] 0 mg PO DAILY #6 tab 05/13/18 Unknown Rx Benzonatate [Tessalon Perles] 100 mg PO Q8HR #30 capsule 05/13/18 Unknown Rx Azithromycin [Zithromax Z-ANDI] 250 mg PO DAILY #6 tablet 02/06/19 Unknown Rx traMADoL [Ultram] 50 mg PO Q6HR PRN #12 tablet 02/06/19 Unknown Rx Cyclobenzaprine HCl [Flexeril 5 MG 5 mg PO TID PRN #10 tab 03/16/19 Unknown Rx TAB] Prednisone [predniSONE 10 mg 10 mg PO .TAPER #1 tab.ds.pk 06/18/19 Unknown Rx (6-Day Pack, 21 Tabs)] levoFLOXacin [Levaquin TAB] 500 mg PO QDAY #7 tablet 06/18/19 Unknown Rx Acetaminophen [Acetaminophen TAB] 650 mg PO Q4H PRN #30 tablet 07/25/19 Unknown Rx Benzonatate [Tessalon Perles] 100 mg PO Q8HR #10 capsule 07/25/19 Unknown Rx predniSONE [Deltasone] 20 mg PO QDAY #5 tab 07/25/19 Unknown Rx Albuterol Sulfate [Proventil Hfa] 2 puff IH Q4HR PRN #1 hfa.aer.ad 10/27/19 Unknown Rx Doxycycline Hyclate [Doxycycline 100 mg PO Q12HR 7 Days #14 tab 11/12/19 Unknown Rx Hyclate TAB] Prednisone [predniSONE 10 mg 10 mg PO .TAPER #1 tab.ds.pk 11/12/19 Unknown Rx (6-Day Pack, 21 Tabs)] amLODIPine 5 mg PO DAILY #30 tab 03/16/20 Unknown Rx Azithromycin [Zithromax Z-ANDI] 250 mg PO DAILY #6 tab 06/02/20 Unknown Rx predniSONE [Deltasone] 40 mg PO QDAY 5 Days #10 tab 06/02/20 Unknown Rx Minor Respiratory Exam - Exam General: Vital signs noted. No distress. Alert and acting appropriately. HEENT: Yes Moist Mucous Membranes, No Pharyngeal Erythema, No Pharyngeal Exudates, No Rhinorrhea, No Conjuctival Injection, No Frontal Tenderness, No Maxillary Tenderness Neck: Yes Supple, No Adenopathy Lungs: Yes Good Air Exchange, No Wheezes, No Ronchi, No Stridor, No Cough, No Labored Respirations, No Retractions, No Use of Accessory Muscles, No Other Abnormal Lung Sounds Heart: Yes Regular, No Murmur Abdomen: Yes Normal Bowel Sounds, No Tenderness, No Peritoneal Signs Skin: No Rash, No Edema Neurologic: Alert and oriented, no deficits. Musculoskeletal: Unremarkable. ED Medical Decision Making - Medical Decision Making 59-year-old -[place] female presents to the emergency room for 3-day history of cough. Patient does admit that she smokes cigarettes. She states that she was here yesterday but did not stay for her results. Patient denies any fever chills no nausea no vomiting. She states she has some slight shortness of breath and slight chest pain. She reports she has a history of CHF COPD and asthma. Patient states that she wears a LifeVest. Patient has an allergy to lisinopril. Patient reports she is on carvedilol losartan Lasix sorbic acid and glipizide. Chest x-ray was completed yesterday shows only cardiomegaly. No cardiopulmonary abnormalities. Discussed with patient I will place her on azithromycin and some prednisone for her to use her nebulizer and inhaler as prescribed I discussed with patient to increase her water intake since she smokes cigarettes. I encouraged patient to discontinue smoking and increase her fluid intake. Patient is to follow-up with her primary care provider in the next 3 days Critical care attestation.: If time is entered above; I have spent that time in minutes in the direct care of this critically ill patient, excluding procedure time. ED Disposition Clinical Impression: Bronchitis, Tobacco use, Tobacco abuse counseling Disposition: TO HOME OR SELFCARE Is pt being admited?: No Does the pt Need Aspirin: No Condition: Stable Instructions: Chronic Bronchitis (ED), Acute Bronchitis (ED) Additional Instructions: Complete antibiotics as prescribed. Take prednisone as needed use your inhaler and nebulizer machine. Follow-up with your primary care provider. Drink plenty of water. Prescriptions: predniSONE [Deltasone] 40 mg PO QDAY 5 Days #10 tab Azithromycin [Zithromax Z-ANDI] 250 mg PO DAILY #6 tab Referrals: MANASA ADAME MD [Referring] - 3-5 Days
== END 2020-06-02 14:46 | disposition home or self-care (01) ==
LOC: ED 13:46
DX: J40 Bronchitis, not specified as acute or chronic (principal); Z72.0 Tobacco use; Z71.6 Tobacco abuse counseling; I11.0 Hypertensive heart disease with heart failure; I50.9 Heart failure, unspecified; M19.91 Primary osteoarthritis, unspecified site; F32.9 Major depressive disorder, single episode, unspecified; J44.9 Chronic obstructive pulmonary disease, unspecified; Z98.890 Other specified postprocedural states; Z79.2 Long term (current) use of antibiotics; Z79.899 Other long term (current) drug therapy; Z88.8 Allergy status to other drugs, medicaments and biological substances
CPT/HCPCS: 99282

== ENCOUNTER 2020-07-16 10:42 | Inpatient (IN) | payer MEDICAID ==
--- NOTE | 2020-07-16 11:34 | Emergency Department Report ---
Blank Doc - Documentation Documentation: 59-year-old with past medical history of COPD, current tobacco abuse, CAD, hypertension, diabetes presents emergency department complaining of a couple day history of progressively worsening exertional dyspnea complaining of feeling lightheaded and and and dizzy when she takes a small amount of steps associated with breathlessness. She is also been having some discoloration to her right index finger of an unknown etiology she states this is been atraumatic in nature. The pain is going to move more intense over the last 3 days. She also reports a history of CHF and is supposed to wear her LifeVest is not on at this present time due to her taking a shower prior to arrival. This initial assessment/diagnostic orders/clinical plan/treatment(s) is/are subject to change based on patients health status, clinical progression and re- assessment by fellow clinical providers in the ED. Further treatment and workup at subsequent clinical providers discretion. Patient/guardian urged not to elope from the ED as their condition may be serious if not clinically assessed and managed. Initial orders include: We will do a cardiac evaluation, EKG, evaluate for CHF as well and chest x-ray
[2020-07-16] MEDS ORDERED: ASPIRIN 81 MG TAB CHEW PO ONE (11:35)
[2020-07-16 12:19] LABS: Basophils % (Auto) 0.6 % (0.0-1.8); Eosinophils % (Auto) 0.5 % (0.0-4.3); Hematocrit 41.3 % (30.3-42.9); Hemoglobin 13.3 gm/dl (10.1-14.3); Lymphocytes # (Auto) 1.9 K/mm3 (1.2-5.4); Lymphocytes % (Auto) 26.1 % (13.4-35.0); Mean Corpuscular HGB Conc 32 % (30-34); Mean Corpuscular Volume 82 fl (79-97); Monocytes # (Auto) 0.6 K/mm3 (0.0-0.8); Platelet Count 242 K/mm3 (140-440); Red Blood Count 5.03 M/mm3 (3.65-5.03); Red Cell Distribution Width 21.5 % (13.2-15.2)
[2020-07-16 12:39] LABS: Albumin 3.6 g/dL (3.9-5); Calcium 9.4 mg/dL (8.4-10.2)
--- NOTE | 2020-07-16 13:08 | XRay Report ---
CHEST PA AND LATERAL VIEWS INDICATION: Dyspnea. COMPARISON: 06/15/2020 FINDINGS: Support devices: None Heart: Significantly enlarged but stable Lungs/Pleura: No acute pulmonary or pleural findings. Interstitial edema on the previous exam has steve ared. No pleural fluid. IMPRESSION: 1. Cardiomegaly but no acute pulmonary disease. Signer Name: Sandeep Joyner MD Signed: 07/16/2020 1:03 PM Workstation Name: [id number]
[2020-07-16] MEDS ORDERED: FUROSEMIDE 40 MG TAB PO STA (14:35)
[2020-07-16] MEDS ORDERED: LOSARTAN 25 MG TAB PO STA (14:35)
[2020-07-16] MEDS ORDERED: ALBUTEROL 2.5 MG/3 ML NEBU IH STA (14:35)
[2020-07-16] MEDS ORDERED: ASPIRIN EC 81 MG TAB PO STA (14:35)
[2020-07-16] MEDS ORDERED: METOPROLOL TARTRATE 25 MG TAB PO STA (14:35)
[2020-07-16] MEDS ORDERED: THIAMINE 100 MG TAB PO STA (14:35)
--- NOTE | 2020-07-16 14:36 | Emergency Department Report ---
ED General Adult HPI - General Chief complaint: Dyspnea/Respdistress Stated complaint: RT HAND POINTER FINGER PAIN PUI?: Yes Time Seen by Provider: 07/16/20 14:18 Source: patient, RN notes reviewed, old records reviewed Mode of arrival: Ambulatory Limitations: Physical Limitation - History of Present Illness Initial comments: The patient was evaluated in the emergency department for symptoms described in the history of present illness. He/she was evaluated in the context of the global COVID-19 pandemic, which necessitated consideration that the patient might be at risk for infection with the virus that causes COVID-19. I titutional protocols and algorithms that pertain to the evaluation of patients at risk for COVID-19 are in a state of rapid change based on information released by regulatory bodies including the CDC and federal and state organizations. These policies and algorithms were followed during the patient's care in the emergency department. Please note that these policies, procedures and recommendations changed on a rapid basis. During the entire history and physical examination, I had on complete personal protective equipment. This patient is a 59-year-old female. Her past medical history includes congestive heart failure, EF of 15 to 20%, RV dilatation, RV systolic function reduced, moderate tricuspid regurg, pulmonary hypertension, nonischemic cardiomyopathy, normal coronary arteries, hypertension, COPD, homelessness, bipolar, and noncompliance. Today, patient presents to the ER with a complaint of shortness of breath. She denies travel, surgery, oral contraceptive use. Denies fever, she is not quite sure if she is having loss of taste, loss of smell. She has been staying in her friend's garage, and does not think she has been exposed to anyone with Covid, but she is not certain. She is not currently wearing a LifeVest. She also complains of nontraumatic right second digit pain at the pad. This has been going on for a few days. She also describes some discoloration. -: Gradual, days(s) Location: right, upper extremity Radiation: non-radiation Consistency: constant Improves with: rest Worsens with: movement - Related Data Previous Rx's Medication Instructions Recorded Last Taken Type ALBUTEROL NEB's [Proventil 0.083% 2.5 mg IH TID PRN #75 ml 06/18/20 Unknown Rx NEBS] Albuterol Sulfate [Proventil Hfa] 2 puff IH Q4HR PRN #1 hfa.aer.ad 06/18/20 Unknown Rx Aspirin EC [Halfprin EC] 81 mg PO QDAY #30 tablet 06/18/20 Unknown Rx AtorvaSTATin [Lipitor] 40 mg PO QHS #30 tablet 06/18/20 Unknown Rx Benzonatate [Tessalon Perles] 100 mg PO Q8HR #30 capsule 06/18/20 Unknown Rx Budesonide/Formoterol Fumarate 2 puff IH BID #1 hfa.aer.ad 06/18/20 Unknown Rx [Symbicort 160-4.5 Mcg Inhaler] Fluticasone [Flonase] 1 spray NS QDAY #1 bottle 06/18/20 Unknown Rx Furosemide [Lasix TAB] 40 mg PO QDAY #30 tablet 06/18/20 Unknown Rx Ipratropium/Albuterol Sulfate 1 ampul IH BIDRT #30 ampul.neb 06/18/20 Unknown Rx [DUONEB *Not for PRN Use*] Losartan [Cozaar] 25 mg PO QDAY #30 tablet 06/18/20 Unknown Rx Metoprolol [Lopressor TAB] 25 mg PO BID #60 tablet 06/18/20 Unknown Rx Prednisone [predniSONE 10 mg 10 mg PO .TAPER #1 tab.ds.pk 06/18/20 Unknown Rx (6-Day Pack, 21 Tabs)] Spironolactone [Aldactone] 25 mg PO QDAY #30 tablet 06/18/20 Unknown Rx Thiamine [Vitamin B-1] 100 mg PO QDAY #30 tablet 06/18/20 Unknown Rx traMADoL [Ultram 50 MG tab] 50 mg PO Q6HR PRN #12 tablet 06/18/20 Unknown Rx Allergies Allergy/AdvReac Type Severity Reaction Status Date / Time lisinopril AdvReac Unknown Verified 03/16/20 07:10 ED Review of Systems ROS: Stated complaint: RT HAND POINTER FINGER PAIN Other details as noted in HPI Constitutional: malaise, weakness Eyes: denies: eye discharge ENT: congestion Respiratory: cough, orthopnea, shortness of breath, SOB with exertion, SOB at rest Cardiovascular: dyspnea on exertion, orthopnea, edema. denies: chest pain Gastrointestinal: denies: nausea, vomiting, hematemesis, melena, hematochezia Genitourinary: denies: dysuria Musculoskeletal: arthralgia, myalgia Neurological: weakness Psychiatric: anxiety Hematological/Lymphatic: denies: easy bleeding ED Past Medical Hx - Past Medical History Previous Medical History?: Yes Hx Hypertension: Yes Hx Congestive Heart Failure: Yes Hx Diabetes: No Hx Arthritis: Yes (OSTEOARTHRITIS) Hx Psychiatric Treatment: Yes (depression) Hx Asthma: No Hx COPD: Yes (bronchitis) Additional medical history: ALLERGIES. Heart failure, EF 25%, Life Vest - Surgical History Past Surgical History?: Yes Additional Surgical History: right hip replacement, right femur fx, Right knee surgery - Social History Smoking Status: Never Smoker Substance Use Type: None - Medications Home Medications: Home Medications Medication Instructions Recorded Confirmed Last Taken Type ALBUTEROL NEB's [Proventil 0.083% 2.5 mg IH TID PRN #75 ml 06/18/20 Unknown Rx NEBS] Albuterol Sulfate [Proventil Hfa] 2 puff IH Q4HR PRN #1 hfa.aer.ad 06/18/20 Unknown Rx Aspirin EC [Halfprin EC] 81 mg PO QDAY #30 tablet 06/18/20 Unknown Rx AtorvaSTATin [Lipitor] 40 mg PO QHS #30 tablet 06/18/20 Unknown Rx Benzonatate [Tessalon Perles] 100 mg PO Q8HR #30 capsule 06/18/20 Unknown Rx Budesonide/Formoterol Fumarate 2 puff IH BID #1 hfa.aer.ad 06/18/20 Unknown Rx [Symbicort 160-4.5 Mcg Inhaler] Fluticasone [Flonase] 1 spray NS QDAY #1 bottle 06/18/20 Unknown Rx Furosemide [Lasix TAB] 40 mg PO QDAY #30 tablet 06/18/20 Unknown Rx Ipratropium/Albuterol Sulfate 1 ampul IH BIDRT #30 ampul.neb 06/18/20 Unknown Rx [DUONEB *Not for PRN Use*] Losartan [Cozaar] 25 mg PO QDAY #30 tablet 06/18/20 Unknown Rx Metoprolol [Lopressor TAB] 25 mg PO BID #60 tablet 06/18/20 Unknown Rx Prednisone [predniSONE 10 mg 10 mg PO .TAPER #1 tab.ds.pk 06/18/20 Unknown Rx (6-Day Pack, 21 Tabs)] Spironolactone [Aldactone] 25 mg PO QDAY #30 tablet 06/18/20 Unknown Rx Thiamine [Vitamin B-1] 100 mg PO QDAY #30 tablet 06/18/20 Unknown Rx traMADoL [Ultram 50 MG tab] 50 mg PO Q6HR PRN #12 tablet 06/18/20 Unknown Rx ED Physical Exam - General Limitations: Physical Limitation General appearance: alert, anxious, in distress, obese - Head Head exam: Present: atraumatic, normocephalic - Eye Eye exam: Present: normal appearance, EOMI. Absent: nystagmus - ENT ENT exam: Present: normal exam, normal orophraynx, mucous membranes moist, ricardo l external ear exam - Neck Neck exam: Present: normal inspection, full ROM. Absent: tenderness, meningismus - Respiratory Respiratory exam: Present: decreased breath sounds. Absent: respiratory distress, wheezes, rales, rhonchi, stridor - Cardiovascular Cardiovascular Exam: Present: regular rate, normal rhythm, normal heart sounds. Absent: bradycardia, tachycardia, irregular rhythm, systolic murmur, diastolic murmur, rubs, gallop - GI/Abdominal GI/Abdominal exam: Present: soft. Absent: distended, tenderness, guarding, rebound, rigid, pulsatile mass - Extremities Exam Extremities exam: Present: full ROM, tenderness (The right second digit is minimally tender on the distal phalanx on the volar side of the finger. There is no redness, pus or streaking. There is no fluctuance. There is no pa ronychia. There is hyperpigmentation.), pedal edema (1+ edema noted on the bilateral lower extremity), other (2+ pulses noted in the bilateral upper and lower extremities. There is no palpable cord. negative Homans sign. Muscular compartments are soft. The pelvis is stable.). Absent: calf tenderness - Back Exam Back exam: Present: normal inspection, full ROM. Absent: tenderness, CVA tenderness (R), CVA tenderness (L), paraspinal tenderness, vertebral tenderness - Neurological Exam Neurological exam: Present: alert, normal gait, other (No facial droop. Tongue midline. Extraocular movements intact bilaterally. Facial sensation intact to light touch in V1, V2, V3 distribution bilaterally. 5 and a 5 strength in 4 extremities. Sensation intact to light touch in 4 extremities.). Absent: motor sensory deficit - Psychiatric Psychiatric exam: Present: anxious - Skin Skin exam: Present: warm, dry, intact, normal color. Absent: rash ED Course Vital Signs 07/16/20 07/16/20 11:19 14:28 Temperature 97.8 F Pulse Rate 82 Respiratory 20 24 Rate Blood Pressure 149/93 O2 Sat by Pulse 97 Oximetry - Reevaluation(s) Reevaluation #1: 07/16/20 15:27 Dr. Dang to admit to the medical service. ED Medical Decision Making - Lab Data Result diagrams: 07/16/20 11:50 07/16/20 11:50 Vital Signs 07/16/20 07/16/20 11:19 14:28 Temperature 97.8 F Pulse Rate 82 Respiratory 20 24 Rate Blood Pressure 149/93 O2 Sat by Pulse 97 Oximetry Lab Results 07/16/20 07/16/20 07/16/20 Range/Units 11:50 11:50 11:50 WBC 7.1 (4.5-11.0) K/mm3 RBC 5.03 (3.65-5.03) M/mm3 Hgb 13.3 (10.1-14.3) gm/dl Hct 41.3 (30.3-42.9) % MCV 82 (79-97) fl MCH 26 L (28-32) pg MCHC 32 (30-34) % RDW 21.5 H (13.2-15.2) % Plt Count 242 (140-440) K/mm3 Lymph % (Auto) 26.1 (13.4-35.0) % [place] % (Auto) 8.0 H (0.0-7.3) % Eos % (Auto) 0.5 (0.0-4.3) % Baso % (Auto) 0.6 (0.0-1.8) % Lymph # (Auto) 1.9 (1.2-5.4) K/mm3 [place] # (Auto) 0.6 (0.0-0.8) K/mm3 Eos # (Auto) 0.0 (0.0-0.4) K/mm3 Baso # (Auto) 0.0 (0.0-0.1) K/mm3 Seg Neutrophils % 64.8 (40.0-70.0) % Seg Neutrophils # 4.6 (1.8-7.7) K/mm3 Sodium 139 (137-145) mmol/L Potassium 4.0 (3.6-5.0) mmol/L Chloride 103.0 (98-107) mmol/L Carbon Dioxide 26 (22-30) mmol/L Anion Gap 14 mmol/L BUN 17 (7-17) mg/dL Creatinine 1.2 (0.6-1.2) mg/dL Estimated GFR 56 ml/min BUN/Creatinine Ratio 14 % Glucose 147 H (65-100) mg/dL Calcium 9.4 (8.4-10.2) mg/dL Total Bilirubin 0.80 (0.1-1.2) mg/dL AST 26 (5-40) units/L ALT 25 (7-56) units/L Alkaline Phosphatase 94 (35-129) units/L Troponin T 0.025 (0.00-0.029) ng/mL NT-Pro-B Natriuret Pep 75394 H (0-900) pg/mL Total Protein 6.3 (6.3-8.2) g/dL Albumin 3.6 L (3.9-5) g/dL Albumin/Globulin Ratio 1.3 % - EKG Data -: EKG Interpreted by Wi EKG shows normal: sinus rhythm Rate: normal - EKG Data 07/16/20 15:15 Sinus rhythm, 79 bpm, normal axis, QTC is prolonged, left ventricular hypertrophy, numerous T wave inversions, atrial enlargement. Abnormal EKG. Not a STEMI. Unchanged from prior EKG 06/2020 - Radiology Data Radiology results: report reviewed, image reviewed Print Report Referring Physician: ALEXA DE LOS SANTOS Patient Name: SOCRATES KRAFT Date of : 1960 Sex: Female Report Date: 2020-07-16 Report Status: Finalized Findings [facility], [place] [address] [place] [address] XRay Report Signed Patient: SOCRATES KRAFT MR#: [id number] : 1960 Acct:[id number] Age/Sex: 59 / F ADM Date: 07/16/20 Loc: ED Attending Dr: Ordering Physician: JEREMY WALTON Date of Service: 07/16/20 Procedure(s): XR chest routine 2V Accession Number(s): [id number] cc: JEREMY WALTON Fluoro Time In Minutes: CHEST PA AND LATERAL VIEWS INDICATION: Dyspnea. COMPARISON: 06/15/2020 FINDINGS: Support devices: None Heart: Significantly enlarged but stable Lungs/Pleura: No acute pulmonary or pleural findings. Interstitial edema on the previous exam has cleared. No pleural fluid. IMPRESSION: 1. Cardiomegaly but no acute pulmonary disease. Signer Name: Sandeep Joyner MD Signed: 07/16/2020 1:03 PM Workstation Name: [id number] Transcribed By: TM Dictated By: Sandeep Joyner MD Electronically Authenticated By: Sandeep Joyner MD Signed Date/Time: 07/16/20 1303 DD/ 1302 - Medical Decision Making Differential diagnosis, including but not limited to: Congestive heart failure, COPD, pulmonary hypertension, obstructive sleep apnea, COVID-19, noncompliance Right pointer finger cellulitis/early felon Assessment and plan: 59-year-old female with shortness of breath. She presents during the COVID-19 pandemic. Laboratory studies were ordered prior to my personal evaluation. Think pulmonary embolism is unlikely. It is more likely that the patient is decompensating from her congestive heart failure, likely secondary to medication and diet noncompliance. She has not followed up with her animal husbandman as instructed. Patient was given a trial of ambulation, and desaturated to 85%, and became quite dyspneic and symptomatic. She is obviously not reliable to follow-up, has objectively abnormal vital signs, it is not suitable for outpatient management given her hypoxia with ambulation. Patient also placed on isolation precautions g given her hypoxia, and clinical symptomatology. She will be given Lasix, and Decadron. In terms of her right upper extremity finger, she has some tenderness, without pus, streaking, or abscess. Do not see indication for incision and drainage at this time, will initiate clindamycin therapy. There is no fluctuance on the right pointer finger at this time. She may also participate with warm soaks. Counseled patient that we would recommend hospitalization and admission. She is amenable to this plan of care. Hospital physician is paged to arrange admission. Critical care attestation.: If time is entered above; I have spent that time in minutes in the direct care of this critically ill patient, excluding procedure time. ED Disposition Clinical Impression: Shortness of breath, Congestive heart failure (CHF), COPD (chronic obstructive pulmonary disease), Hypoxia, Cardiomyopathy, Suspected 2019 novel coronavirus infection, Noncompliance, Pain in finger of right hand Disposition: 09 OP ADMIT IP TO THIS HOSP Is pt being admited?: Yes Does the pt Need Aspirin: No Condition: Fair Instructions: Chronic Obstructive Pulmonary Disease (ED) Referrals: PRIMARY CARE, [Primary Care Provider] - 3-5 Days
[2020-07-16] MEDS ORDERED: CLINDAMYCIN 300 MG CAP PO ONE (14:39)
[2020-07-16] MEDS ORDERED: FUROSEMIDE 40 MG/4 ML INJ IV ONE (14:39)
[2020-07-16] MEDS ORDERED: dexAMETHasone 4 MG/ML VIAL IV ONE (14:39)
[2020-07-16] MEDS ORDERED: SPIRONOLACTONE 25 MG TAB PO STA (14:42)
[2020-07-16] MEDS ORDERED: FUROSEMIDE 20 MG TAB ONE (15:23)
[2020-07-16] MEDS ORDERED: LOSARTAN 50 MG TAB ONE (15:26)
[2020-07-16 15:46] LABS: C-Reactive Protein 2.6 mg/dL (0.00-1.30)
[2020-07-16] MEDS ORDERED: ONDANSETRON 4 MG/2 ML INJ IV PRN (15:56)
[2020-07-16] MEDS ORDERED: ALBUTEROL 2.5 MG/3 ML NEBU IH PRN (15:56)
[2020-07-16] MEDS ORDERED: ACETAMINOPHEN 325 MG TAB PO PRN (15:56)
--- NOTE | 2020-07-16 15:56 | History and Physical Report ---
History of Present Illness Chief complaint: I am weak and I get tired easily History of present illness: 59 YO Female with Systolic CHF(EF 15%) Noncompliant with Lifevest, Medication Noncompliance, HTN, COPD, Nicotine Dependence, ETOH Dependence presents to ED for evaluation. Patient states that she has experienced shortness of breath, and generalized weakness over the past 1 week with worsening symptoms over the p ast 3 days. Patient acknowledges orthopnea, paroxysmal nocturnal dyspnea, decreased exercise tolerance, bilateral leg edema, dry cough over the past 1 week with persistent symptoms over the past 3 days. Patient transported to [facility] via private vehicle for further care and evaluation of the aforementioned symptoms. Patient seen and evaluated in the emergency department. All lab and imaging studies reviewed. Patient found to have clinical symptoms consistent with systolic congestive heart failure exacerbation, as well as a pulse oximetry of 87% on room air which is consistent with acute hypoxemic respiratory failure. Patient placed on submental oxygen with improvement in symptoms. Patient admitted to telemetry and initiated on CHF protocol. Patient initiated on coronavirus protocol in the emergency department prior to my evaluation. Patient denies fever, chills, chest pain, palpitations, skin rash, recent ill contacts, prolonged travel/immobility, unilateral leg swelling, calf pain, individual/family history of DVT/PE/bleeding/blood clotting disorders, or known exposure to COVID-19. Prior admission on 06/17/2020 reviewed. All medication listed at time of admission has been reconciled. Past History Past Medical History: heart failure, hypertension, other (See HPI) Past Surgical History: No surgical history, Other (reviewed) Social history: , smoking, alcohol abuse Family history: hypertension Medications and Allergies Allergies Allergy/AdvReac Type Severity Reaction Status Date / Time lisinopril AdvReac Unknown Verified 03/16/20 07:10 Home Medications Medication Instructions Recorded Confirmed Last Taken Type ALBUTEROL NEB's [Proventil 0.083% 2.5 mg IH TID PRN #75 ml 06/18/20 Unknown Rx NEBS] Albuterol Sulfate [Proventil Hfa] 2 puff IH Q4HR PRN #1 hfa.aer.ad 06/18/20 Unknown Rx Aspirin EC [Halfprin EC] 81 mg PO QDAY #30 tablet 06/18/20 Unknown Rx AtorvaSTATin [Lipitor] 40 mg PO QHS #30 tablet 06/18/20 Unknown Rx Benzonatate [Tessalon Perles] 100 mg PO Q8HR #30 capsule 06/18/20 Unknown Rx Budesonide/Formoterol Fumarate 2 puff IH BID #1 hfa.aer.ad 06/18/20 Unknown Rx [Symbicort 160-4.5 Mcg Inhaler] Fluticasone [Flonase] 1 spray NS QDAY #1 bottle 06/18/20 Unknown Rx Furosemide [Lasix TAB] 40 mg PO QDAY #30 tablet 06/18/20 Unknown Rx Ipratropium/Albuterol Sulfate 1 ampul IH BIDRT #30 ampul.neb 06/18/20 Unknown R x [DUONEB *Not for PRN Use*] Losartan [Cozaar] 25 mg PO QDAY #30 tablet 06/18/20 Unknown Rx Metoprolol [Lopressor TAB] 25 mg PO BID #60 tablet 06/18/20 Unknown Rx Prednisone [predniSONE 10 mg 10 mg PO .TAPER #1 tab.ds.pk 06/18/20 Unknown Rx (6-Day Pack, 21 Tabs)] Spironolactone [Aldactone] 25 mg PO QDAY #30 tablet 06/18/20 Unknown Rx Thiamine [Vitamin B-1] 100 mg PO QDAY #30 tablet 06/18/20 Unknown Rx traMADoL [Ultram 50 MG tab] 50 mg PO Q6HR PRN #12 tablet 06/18/20 Unknown Rx Review of Systems Constitutional: no weight loss, no fever, no chills Ears, nose, mouth and throat: no ear pain, no ear discharge, no tinnitis, no decreased hearing Breasts: no change in shape, no swelling, no mass Cardiovascular: orthopnea, edema, shortness of breath, dyspnea on exertion, paroxysmal nocturnal dyspnea, decreased exercise tolerance, no chest pain, no r apid/irregular heart beat Respiratory: cough, no excessive sputum, no hemoptysis Gastrointestinal: no nausea, no vomiting, no diarrhea, no constipation Genitourinary Female: no pelvic pain, no flank pain, no menorrhagia, no dysuria, no urinary frequency, no urgency Rectal: no pain, no incontinence, no bleeding Musculoskeletal: no neck pain, no shooting arm pain, no arm numbness/tingling, no low back pain, no shooting leg pain Integumentary: no rash, no pruritis, no redness, no sores, no wounds Neurological: no head injury, no transient paralysis, no paralysis, no parathesias, no numbness Psychiatric: no anxiety, no memory loss, no change in sleep habits, no insomnia, no hypersomnia, no change in appetite, no change in libido Endocrine: no cold intolerance, no heat intolerance, no polydipsia, no nocturia Hematologic/Lymphatic: no easy bruising, no easy bleeding Allergic/Immunologic: no urticaria, no allergic rhinitis Exam - Constitutional Vitals: Temp Pulse Resp BP Pulse Ox 97.8 F 82 24 149/93 97 07/16/20 11:19 07/16/20 11:19 07/16/20 14:28 07/16/20 11:19 07/16/20 11:19 General appearance: Present: mild distress - EENT Eyes: Present: PERRL ENT: hearing intact, clear oral mucosa - Neck Neck: Present: supple, normal ROM - Respiratory Respiratory effort: normal Respiratory: bilateral: diminished, rales - Cardiovascular Heart Sounds: Present: S1 & S2. Absent: rub, click - Extremities Extremities: pulses symmetrical Extremity abnormal: edema Peripheral Pulses: within normal limits - Abdominal General gastrointestinal: Present: soft, non-tender, non-distended, normal bowel sounds Female genitourinary: Present: normal - Integumentary Integumentary: Present: clear, warm, dry - Musculoskeletal Musculoskeletal: gait normal, strength equal bilaterally - Psychiatric Psychiatric: appropriate mood/affect, intact judgment & insight - Neurologic Neurologic: CNII-XII intact, moves all extremities HEART Score - HEART Score Troponin: Troponin T 0.025 ng/mL (0.00-0.029) 07/16/20 11:50 Results - Labs CBC & Chem 7: 07/16/20 11:50 07/16/20 15:07 Labs: Abnormal lab results 07/16/20 07/16/20 07/16/20 Range/Units 11:50 11:50 11:50 MCH 26 L (28-32) pg RDW 21.5 H (13.2-15.2) % [place] % (Auto) 8.0 H (0.0-7.3) % D-Dimer (0-234) ng/mlDDU Glucose 147 H (65-100) mg/dL Magnesium (1.7-2.3) mg/dL Lactate Dehydrogenase (91-180) units/L C-Reactive Protein (0.00-1.30) mg/dL NT-Pro-B Natriuret Pep 20447 H (0-900) pg/mL Albumin 3.6 L (3.9-5) g/dL 07/16/20 07/16/20 07/16/20 Range/Units 15:07 15:07 15:07 MCH (28-32) pg RDW (13.2-15.2) % [place] % (Auto) (0.0-7.3) % D-Dimer 692.24 H (0-234) ng/mlDDU Glucose 207 H (65-100) mg/dL Magnesium 1.60 L (1.7-2.3) mg/dL Lactate Dehydrogenase 201 H (91-180) units/L C-Reactive Protein 2.60 H (0.00-1.30) mg/dL NT-Pro-B Natriuret Pep (0-900) pg/mL Albumin (3.9-5) g/dL Assessment and Plan - Patient Problems (1) Congestive heart failure (CHF) Current Visit: Yes Status: Acute Qualifiers: Heart failure type: combined systolic and diastolic Heart failure chronic condition nurse nicity: chronic Qualified Code(s): I50.42 - Chronic combined systolic (congestive) and diastolic (congestive) heart failure Plan to address problem: Strict I's/O, monitor urine output every shift, daily weight, afterload reduction, echocardiogram reviewed, placement of LifeVest. Diuresis with Lasix. Chest x-ray. Cardiology consulted in ED. (2) Acute respiratory failure Current Visit: Yes Status: Acute Qualifiers: Respiratory failure complication: hypoxia Qualified Code(s): J96.01 - Acute respiratory failure with hypoxia Plan to address problem: Supplemental oxygen, pulse oximetry, nebulizer therapy, chest x-ray, supportive care. (3) Noncompliance Current Visit: Yes Status: Acute Plan to address problem: Patient counseled regarding noncompliance with medication as well as noncompliance with LifeVest. Patient informed that future noncompliance increases the risk of worsening symptoms and even . Patient knowledges understanding instructions. Patient states that she will attempt to be more compliant in the future. (4) ETOH abuse Current Visit: No Status: Acute Plan to address problem: Thiamine, folic acid, multivitamin daily. [facility] protocol. (5) HTN (hypertension) Current Visit: No Status: Chronic Qualifiers: Hypertension type: essential hypertension Qualified Code(s): I10 - Essential (primary) hypertension Plan to address problem: Monitor blood pressure every shift, continue medical management. (6) Tobacco use Current Visit: No Status: Chronic Plan to address problem: Smoking cessation counseling, supportive care, behavior change counseling, +15 minutes. (7) Suspected 2019-nCoV infection Current Visit: Yes Status: Acute Plan to address problem: Coronavirus PCR ordered in the emergency department. Awaiting results. (8) DVT prophylaxis Current Visit: No Status: Acute Plan to address problem: SCD to bilateral lower extremities while in bed, patient is ambulatory.
[2020-07-16] MEDS: FUROSEMIDE 20 MG/2 ML INJ IV SCH (19:11)
[2020-07-17] MEDS: guaiFENesin 100 MG/5 ML ORAL LIQD PO PRN ×2 (02:31→08:33)
[2020-07-17] MEDS: FUROSEMIDE 20 MG/2 ML INJ IV SCH ×2 (05:34→18:45)
[2020-07-17 06:53] LABS: BUN/Creatinine Ratio 21; Blood Urea Nitrogen 21 mg/dL (7-17); Calcium 9.1 mg/dL (8.4-10.2); Hemolysis Index 8
--- NOTE | 2020-07-17 17:53 | Progress Note ---
Assessment and Plan -- Congestive heart failure (CHF) Current Visit: Yes Status: Acute on chronic Qualifiers: Heart failure type: combined systolic and diastolic Heart failure chronicity: chronic Qualified Code(s): I50.42 - Chronic combined systolic (congestive) and diastolic (congestive) heart failure Plan to address problem: Strict I's/O, monitor urine output every shift, daily weight, afterload reduction, echocardiogram from last month reviewed which showed EF 15 to 20%, placement of LifeVest. Continue diuresis with Lasix. Cardiology consulted in ED. -- Acute respiratory failure Current Visit: Yes Status: Acute Qualifiers: Respiratory failure complication: hypoxia Qualified Code(s): J96.01 - Acute respiratory failure with hypoxia Plan to address problem: Now resolved, patient resting on room air O2 Supplemental oxygen, pulse oximetry, nebulizer therapy, chest x-ray, supportive care. -- Noncompliance Current Visit: Yes Status: Acute Plan to address problem: Patient counseled regarding noncompliance with medication as well as noncompliance with LifeVest. Patient informed that future noncompliance increases the risk of worsening symptoms and even . Patient knowledges understanding instructions. Patient states that she will attempt to be more compliant in the future. -- ETOH abuse Current Visit: No Status: Acute Plan to address problem: cont Thiamine, folic acid, multivitamin daily. [facility] protocol. -- HTN (hypertension) Current Visit: No Status: Chronic Qualifiers: Hypertension type: essential hypertension Qualified Code(s): I10 - Essential (primary) hypertension Plan to address problem: Monitor blood pressure every shift, continue medical management. -- Tobacco use Current Visit: No Status: Chronic Plan to address problem: Smoking cessation counseling, supportive care, behavior change counseling, +15 minutes. -- Suspected 2019-nCoV infection Current Visit: Yes Status: Ruled out Plan to address problem: Coronavirus PCR ordered in the emergency department. Her test result is negative -- DVT prophylaxis Current Visit: No Status: Acute Plan to address problem: SCD to bilateral lower extremities while in bed, patient is ambulatory. 07/17: Negative for COVID-19, discontinue isolation. Continue to treat with IV Lasix for CHF exacerbation. Consult case management for placement as patient is homeless. Subjective Date of service: 07/17/20 Interval history: Patient seen and examined. Medical records and medication list reviewed. No acute event overnight noted by the RN. Patient complains of difficulty breathing on ambulation. Patient is tolerating diet. Discussed plan of care at bedside with patient. Patient states that she is basically homeless and currently living in someone's garage Objective - Exam Narrative Exam: GENERAL: well-developed and well-nourished -[place] female sitting on bed appeared to be in no discomfort. HEENT: Normocephalic. Atraumatic. No conjunctival congestion or icterus. Patient has moist mucous membranes. NECK: Supple. Trachea midline. CHEST/LUNGS: Few crackles auscultated bilaterally, breathing nonlabored. No wheezes or rhonchi. HEART/CARDIOVASCULAR: Regular in rate and rhythm. S1 and S2 positive. ABDOMEN: Abdomen is soft, nontender. Patient has normal bowel sounds. SKIN: There is no rash. Warm and dry. NEURO: No focal motor deficit. Follows command. MUSCULOSKELETAL: No joint effusion or tenderness. EXTRIMITY: Trace edema, no cyanosis or clubbing. PSYCH: Cooperative. - Constitutional Vitals: Vital Signs - 12hr 07/17/20 07/17/20 07/17/20 06:08 10:00 11:00 Temperature 97.6 F Pulse Rate 76 Respiratory 18 22 Rate Blood Pressure 158/90 O2 Sat by Pulse 90 100 95 Oximetry 07/17/20 11:45 Temperature 98.1 F Pulse Rate 67 Respiratory 18 Rate Blood Pressure 146/93 O2 Sat by Pulse 95 Oximetry - Labs CBC & Chem 7: 07/16/20 11:50 07/17/20 06:06 Labs: Abnormal lab results 07/17/20 Range/Units 06:06 BUN 21 H (7-17) mg/dL Glucose 205 H (65-100) mg/dL HEART Score - HEART Score Troponin: Troponin T 0.025 ng/mL (0.00-0.029) 07/16/20 11:50
[2020-07-18 06:48] VITALS: BP 147/92
[2020-07-18] MEDS: FUROSEMIDE 20 MG/2 ML INJ IV SCH (07:44)
[2020-07-18] MEDS: guaiFENesin 100 MG/5 ML ORAL LIQD PO PRN (10:31)
--- NOTE | 2020-07-18 13:51 | Progress Note ---
Assessment and Plan -- Congestive heart failure (CHF) Current Visit: Yes Status: Acute on chronic Qualifiers: Heart failure type: combined systolic and diastolic Heart failure chronicity: chronic Qualified Code(s): I50.42 - Chronic combined systolic (congestive) and diastolic (congestive) heart failure Plan to address problem: Strict I's/O, monitor urine output every shift, daily weight, afterload reduction, echocardiogram from last month reviewed which showed EF 15 to 20%, placement of LifeVest. Continue diuresis with Lasix. Cardiology consulted in ED. -- Acute respiratory failure Current Visit: Yes Status: Acute Qualifiers: Respiratory failure complication: hypoxia Qualified Code(s): J96.01 - Acute respiratory failure with hypoxia Plan to address problem: Now resolved, patient resting on room air O2 Supplemental oxygen, pulse oximetry, nebulizer therapy, chest x-ray, supportive care. -- Noncompliance Current Visit: Yes Status: Acute Plan to address problem: Patient counseled regarding noncompliance with medication as well as noncompliance with LifeVest. Patient informed that future noncompliance increases the risk of worsening symptoms and even . Patient knowledges understanding instructions. Patient states that she will attempt to be more compliant in the future. -- ETOH abuse Current Visit: No Status: Acute Plan to address problem: cont Thiamine, folic acid, multivitamin daily. [facility] protocol. -- HTN (hypertension) Current Visit: No Status: Chronic Qualifiers: Hypertension type: essential hypertension Qualified Code(s): I10 - Essential (primary) hypertension Plan to address problem: Monitor blood pressure every shift, continue medical management. -- Tobacco use Current Visit: No Status: Chronic Plan to address problem: Smoking cessation counseling, supportive care, behavior change counseling, +15 minutes. -- Suspected 2019-nCoV infection Current Visit: Yes Status: Ruled out Plan to address problem: Coronavirus PCR ordered in the emergency department. Her test result is negative -- DVT prophylaxis Current Visit: No Status: Acute Plan to address problem: SCD to bilateral lower extremities while in bed, patient is ambulatory. 07/17: Negative for COVID-19, discontinue isolation. Continue to treat with IV Lasix for CHF exacerbation. Consult case management for placement as patient is homeless. 07/18: Continue diuresis with IV Lasix. 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 Monitor BMP Subjective Date of service: 12/10/20 Objective - Exam Narrative Exam: GENERAL: well-developed and well-nourished -[place] female sitting on bed appeared to be in no discomfort. HEENT: Normocephalic. Atraumatic. No conjunctival congestion or icterus. Patient has moist mucous membranes. NECK: Supple. Trachea midline. CHEST/LUNGS: Few crackles auscultated bilaterally, breathing nonlabored. No wheezes or rhonchi. HEART/CARDIOVASCULAR: Regular in rate and rhythm. S1 and S2 positive. ABDOMEN: Abdomen is soft, nontender. Patient has normal bowel sounds. SKIN: There is no rash. Warm and dry. NEURO: No focal motor deficit. Follows command. MUSCULOSKELETAL: No joint effusion or tenderness. EXTRIMITY: Trace edema, no cyanosis or clubbing. PSYCH: Cooperative. - Constitutional Vitals: Vital Signs - 12hr 07/18/20 07/18/20 06:46 08:26 Temperature 98.9 F Pulse Rate 81 Respiratory 20 Rate Blood Pressure 147/92 O2 Sat by Pulse 96 95 Oximetry - Labs CBC & Chem 7: 07/16/20 11:50 07/17/20 06:06 HEART Score - HEART Score Troponin: Troponin T 0.025 ng/mL (0.00-0.029) 07/16/20 11:50
--- NOTE | 2020-07-18 16:19 | Discharge Summary ---
Providers - Providers Date of Admission: 07/16/20 15:56 Date of discharge: 07/18/20 Attending physician: ROSINA OLSEN 07/16/20 14:34 Consult to Case Management [CONS] Stat Services Needed at Discharge: Front Office Help Notified:: yes awaiting call back 07/16/20 16:23 Consult to Case Management [CONS] Routine Services Needed at Discharge: Front Office Help Notified:: in ED. Additional Physician Instructions: Homeless Primary care physician: [employer] Hospitalization Condition: Fair Hospital course: Discharge diagnosis: -- Congestive heart failure (CHF) Current Visit: Yes Status: Acute on chronic -- Acute respiratory failure Current Visit: Yes Status: Acute -- Noncompliance Current Visit: Yes Status: chronic -- ETOH abuse Current Visit: No Status: Acute -- HTN (hypertension) Current Visit: No Status: Chronic -- Tobacco use Current Visit: No Status: Chronic -- Suspected 2019-nCoV infection Current Visit: Yes Status: Ruled out --Hypomagnesemia, repleted -- DVT prophylaxis Current Visit: No Status: Acute Disposition: DC/TX-06 HOME UNDER [facility] Time spent for discharge: 34 minutes Core Measure Documentation - Palliative Care Palliative Care/ Comfort Measures: Not Applicable - Core Measures Any of the following diagnoses?: heart failure - Heart Failure Discharge Requirements KELLY/ARB for LVSD if EF <40%: Yes Beta sylvester at discharge: Yes Exam - Physical Exam Narrative exam: GENERAL: well-developed and well-nourished -[place] female sitting on bed appeared to be in no discomfort. HEENT: Normocephalic. Atraumatic. No conjunctival congestion or icterus. Patient has moist mucous membranes. NECK: Supple. Trachea midline. CHEST/LUNGS: Few crackles auscultated bilaterally, breathing nonlabored. No wheezes or rhonchi. HEART/CARDIOVASCULAR: Regular in rate and rhythm. S1 and S2 positive. ABDOMEN: Abdomen is soft, nontender. Patient has normal bowel sounds. SKIN: There is no rash. Warm and dry. NEURO: No focal motor deficit. Follows command. MUSCULOSKELETAL: No joint effusion or tenderness. EXTRIMITY: Trace edema, no cyanosis or clubbing. PSYCH: Cooperative. - Constitutional Vitals: Temp Pulse Resp BP Pulse Ox 98.9 F 81 20 147/92 95 07/18/20 06:46 07/18/20 06:46 07/18/20 06:46 07/18/20 06:46 07/18/20 08:26 Plan Activity: advance as tolerated Weight Bearing Status: Weight Bear as Tolerated Diet: low fat, low salt Special Instructions: restrict fluid intake to (1.2L per day), record blood sugar diary Follow up with: ANA PEDROZA MD [Primary Care Provider] - 3-5 Days ARMIN SHELTON MD [Staff Physician] - 7 Days Prescriptions: AtorvaSTATin [Lipitor] 40 mg PO QHS #30 tablet Spironolactone [Aldactone] 25 mg PO QDAY #30 tablet Losartan [Cozaar] 25 mg PO QDAY #30 tablet Fluticasone [Flonase] 1 spray NS QDAY #1 bottle Aspirin EC [Halfprin EC] 81 mg PO QDAY #30 tablet Furosemide [Lasix TAB] 40 mg PO QDAY #30 tablet Metoprolol [Lopressor TAB] 25 mg PO BID #60 tablet Magnesium 200 mg PO BID #8 tablet Albuterol Sulfate [Proventil Hfa] 2 puff IH Q4HR PRN #1 hfa.aer.ad PRN Reason: Wheezing Budesonide/Formoterol Fumarate [Symbicort 160-4.5 Mcg Inhaler] 2 puff IH BID #1 hfa.aer.ad Thiamine [Vitamin B-1] 100 mg PO QDAY #30 tablet Ipratropium/Albuterol Sulfate [DUONEB *Not for PRN Use*] 1 ampul IH BIDRT #30 ampul.neb
[2020-07-18] MEDS ORDERED: MAGNESIUM SULFATE 1 GM in SODIUM CHLORIDE 0.9% 50 ML IV ONE (17:14)
== END 2020-07-18 17:28 | disposition home health service (06) | DRG 291 ==
LOC: ED 10:42 → 3A 15:56
PROVIDERS: ADMIT Internal Medicine; ATTEND Internal Medicine
DX: I11.0 Hypertensive heart disease with heart failure (principal); J96.01 Acute respiratory failure with hypoxia; J44.9 Chronic obstructive pulmonary disease, unspecified; I25.10 Atherosclerotic heart disease of native coronary artery without angina pectoris; I50.43 Acute on chronic combined systolic (congestive) and diastolic (congestive) heart failure; F10.10 Alcohol abuse, uncomplicated; Y90.9 Presence of alcohol in blood, level not specified; Z91.19 Patient's noncompliance with other medical treatment and regimen; Z71.6 Tobacco abuse counseling; Z82.49 Family history of ischemic heart disease and other diseases of the circulatory system
CPT/HCPCS: 36415; 71046; 80048; 80053; 82550; 82728; 82947; 83615; 83735; 83880; 84145; 84484; 85025; 85379; 86140; 93005; 96365; 96372; 96375; G0378; J1100; J1940; U0003